=== PATIENT | female | born 1985 | race Hispanic/Latino ===

== ENCOUNTER 2018-04-12 21:12 | Emergency (ER) | payer SELFPAY ==
--- NOTE | 2018-04-12 21:41 | EDPHYS ---
Physician Documentation [facility] Name: Lisbet Vela Age: 32 yrs Sex: Female : 1985 Arrival Date: 04/12/2018 Time: 21:14 Bed 14 Private MD: ED Physician Fortunato Smith HPI: 04/12 21:59 This 32 yrs old Female presents to ER via Ambulatory with complaints of Eye snw Swelling. 21:59 The patient is experiencing upper eyelid edema s/p insect bite, to the right eye. snw Onset: The symptoms/episode began/occurred suddenly. Duration: the symptoms are continuous. Associated signs and symptoms: Pertinent positives: None. Patient wears soft contacts. Severity of symptoms: At their worst the symptoms were moderate. The patient has not experienced similar symptoms in the past. The patient has not recently seen a physician. bitten by mosquito today per report, took some benadryl and slept, unable to open upper eyelid when she awoke second to edema. 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 - Social history:: Smoking status: Patient/guardian denies using tobacco. - Ebola Screening: : No symptoms or risks identified at this time. ROS: 21:57 Constitutional: Negative for fever, chills, and weight loss, ENT: Negative for injury, snw pain, and discharge, Neck: Negative for injury, pain, and swelling, Cardiovascular: Negative for chest pain, palpitations, and edema, Respiratory: Negative for shortness of breath, cough, wheezing, and pleuritic chest pain, Abdomen/GI: Negative for abdominal pain, nausea, vomiting, diarrhea, and constipation, Back: Negative for injury and pain, : Negative for injury, bleeding, discharge, and swelling, MS/Extremity: Negative for injury and deformity, Skin: Negative for injury, rash, and discoloration, Neuro: Negative for headache, weakness, numbness, tingling, and seizure. 21:57 Eyes: Positive for swelling, of the right upper eyelid. Exam: 21:57 Constitutional: This is a well developed, well nourished patient who is awake, alert, snw and in no acute distress. Head/Face: Normocephalic, atraumatic. Eyes: Pupils equal round and reactive to light, extra-ocular motions intact. lashes normal. right upper eyelid with edema and faint erythema. conjunctiva and sclera are non-icteric and not injected. Cornea within normal limits. Periorbital areas with no swelling, redness, or edema. ENT: Nares patent. No nasal discharge, no septal abnormalities noted. Tympanic membranes are normal and external auditory canals are clear. Oropharynx with no redness, swelling, or masses, exudates, or evidence of obstruction, uvula midline. Mucous membranes moist. Neck: Trachea midline, no thyromegaly or masses palpated, and no cervical lymphadenopathy. Supple, full range of motion without nuchal rigidity, or vertebral point tenderness. No Meningismus. Chest/axilla: Normal chest wall appearance and motion. Nontender with no deformity. No lesions are appreciated. Cardiovascular: Regular rate and rhythm with a normal S1 and S2. No gallops, murmurs, or rubs. Normal PMI, no JVD. No pulse deficits. Respiratory: Lungs have equal breath sounds bilaterally, clear to auscultation and percussion. No rales, rhonchi or wheezes noted. No increased work of breathing, no retractions or nasal flaring. Abdomen/GI: Soft, non-tender, with normal bowel sounds. No distension or tympany. No guarding or rebound. No evidence of tenderness throughout. Back: No spinal tenderness. No costovertebral tenderness. Full range of motion. Skin: Warm, dry with normal turgor. Normal color with no rashes, no lesions, and no evidence of cellulitis. MS/ Extremity: Pulses equal, no cyanosis. Neurovascular intact. Full, normal range of motion. Neuro: Awake and alert, GCS 15, oriented to person, place, time, and situation. Cranial nerves II-XII grossly intact. Motor strength 5/5 in all extremities. Sensory grossly intact. Cerebellar exam normal. Normal gait. Vital Signs: 21:39 BP 128 / 74; Pulse 61; Resp 18; Temp 98(O); Pulse Ox 100% on R/A; Weight 108.86 kg; lp1 Height 5 ft. 2 in. (157.48 cm); Pain 6/10; 21:39 Body Mass Index 43.90 (108.86 kg, 157.48 cm) lp1 MDM: 21:36 Patient medically screened. snw 21:58 Data reviewed: vital signs, nurses notes. Data interpreted: Pulse oximetry: on room air snw is 100 %. Interpretation: normal. Counseling: I had a detailed discussion with the patient and/or guardian regarding: the historical points, exam findings, and any diagnostic results supporting the discharge/admit diagnosis, the need for outpatient follow up, to return to the emergency department if symptoms worsen or persist or if there are any questions or concerns that arise at home. Special discussion: Based on the history and exam findings, there is no indication for further emergent testing or inpatient evaluation. I discussed with the patient/guardian the need to see the primary care provider for further evaluation of the symptoms. Administered Medications: 21:58 Drug: ZyrTEC - Cetirizine 10 mg Route: PO; lp1 22:06 Follow up: Response: Medication administered at discharge. lp1 21:59 Drug: Pepcid 20 mg Route: PO; lp1 22:06 Follow up: Response: Medication administered at discharge. lp1 21:59 Drug: Bactrim (160 mg-800 mg (DS) 1 tablet Route: PO; lp1 22:06 Follow up: Response: Medication administered at discharge. lp1 Disposition: 04/12/18 21:41 Discharged to Home. Impression: Cellulitis of face, Insect bite (nonvenomous) of eyelid and periocular area. - Condition is Stable. - Discharge Instructions: Insect Bite, Cellulitis, Adult, Cryotherapy. - Prescriptions for Zyrtec 10 mg Oral Tablet - take 1 tablet by ORAL route once daily As needed; 20 tablet. Bactrim DS 800- 160 mg Oral Tablet - take 1 tablet by ORAL route every 12 hours for 10 days; 20 tablet. Pepcid 20 mg Oral Tablet - take 1 tablet by ORAL route once daily for 10 days; 10 tablet. - Work release form, Medication Reconciliation Form, Thank You Letter, Antibiotic Education, Prescription Opioid Use form. - Follow up: Private Physician; When: 2 - 3 days; Reason: Recheck today's complaints, Continuance of care, Re-evaluation by your physician. Follow up: Emergency Department; When: As needed; Reason: Worsening of condition. Signatures: Pamela Llanos, ELIANE-C LANDSCAPE TECHNICIAN-Csnw Rosalinda Dash RN RN lp1 Corrections: (The following items were deleted from the chart) 22:06 21:41 04/12/2018 21:41 Discharged to Home. Impression: Cellulitis of face; Insect bite lp1 (nonvenomous) of eyelid and periocular area. Condition is Stable. Forms are Medication Reconciliation Form, Thank You Letter, Antibiotic Education, Prescription Opioid Use. Follow up: Private Physician; When: 2 - 3 days; Reason: Recheck today's complaints, Continuance of care, Re-evaluation by your physician. Follow up: Emergency Department; When: As needed; Reason: Worsening of condition. snw
--- NOTE | 2018-04-12 21:41 | ER ---
Nurse's Notes [facility] Name: Lisbet Vela Age: 32 yrs Sex: Female : 1985 Arrival Date: 04/12/2018 Time: 21:14 Bed 14 Private MD: Diagnosis: Cellulitis of face;Insect bite (nonvenomous) of eyelid and periocular area Presentation: 04/12 21:36 Presenting complaint: Patient states: Right eye lid swelling that began this morning; lp1 States swelling has increased, last Benadryl dosage at 1100; States "I thought it was just a mosquito bite". Transition of care: patient was not received from another setting of care. Onset of symptoms was April 12, 2018. Risk Assessment: Do you want to hurt yourself or someone else? Patient reports no desire to harm self or others. Initial Sepsis Screen: Does the patient meet any 2 criteria? No. Patient's initial sepsis screen is negative. Does the patient have a suspected source of infection? No. Patient's initial sepsis screen is negative. Care prior to arrival: None. 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 - Social history:: Smoking status: Patient/guardian denies using tobacco. - Ebola Screening: : No symptoms or risks identified at this time. Screenin:04 Abuse screen: Denies threats or abuse. Denies injuries from another. Nutritional lp1 screening: No deficits noted. Tuberculosis screening: No symptoms or risk factors identified. Fall Risk None identified. Assessment: 21:40 General: Appears in no apparent distress. Behavior is calm, cooperative, appropriate lp1 for age. Pain: Complains of pain in right eye Pain currently is 6 out of 10 on a pain scale. Neuro: Level of Consciousness is awake, alert, obeys commands. Cardiovascular: Patient's skin is warm and dry. Respiratory: No deficits noted. Respiratory: No deficits noted. GI: No deficits noted. : No deficits noted. EENT: Eyes swelling noted to right upper eye lid. Derm: Skin is pink, warm \\T\\ dry. Musculoskeletal: No deficits noted. Vital Signs: 21:39 BP 128 / 74; Pulse 61; Resp 18; Temp 98(O); Pulse Ox 100% on R/A; Weight 108.86 kg; lp1 Height 5 ft. 2 in. (157.48 cm); Pain 6/10; 21:39 Body Mass Index 43.90 (108.86 kg, 157.48 cm) lp1 ED Course: 21:14 Patient arrived in ED. as 21:19 Pamela Llanos FNP-C is [facility]. snw 21:19 Fortunato Smith MD is Attending Physician. snw 21:36 Rosalinda Dash, RN is Primary Nurse. lp1 21:38 Triage completed. lp1 21:39 Arm band placed on left wrist. lp1 22:04 Patient has correct armband on for positive identification. lp1 22:04 No provider procedures requiring assistance completed. Patient did not have IV access lp1 during this emergency room visit. Administered Medications: 21:58 Drug: ZyrTEC - Cetirizine 10 mg Route: PO; lp1 22:06 Follow up: Response: Medication administered at discharge. lp1 21:59 Drug: Pepcid 20 mg Route: PO; lp1 22:06 Follow up: Response: Medication administered at discharge. lp1 21:59 Drug: Bactrim (160 mg-800 mg (DS) 1 tablet Route: PO; lp1 22:06 Follow up: Response: Medication administered at discharge. lp1 Outcome: 21:41 Discharge ordered by . snw 22:05 Discharged to home ambulatory. lp1 22:05 Condition: stable 22:05 Discharge instructions given to patient, Instructed on discharge instructions, follow up and referral plans. medication usage, Demonstrated understanding of instructions, follow-up care, medications, Prescriptions given X 3. 22:06 Patient left the ED. lp1 Signatures: Pamela Llanos FNP-C RUG INSPECTOR HELPER-Csnw Sara Dwyer as Rosalinda Dash, RN RN lp1
[2018-04-12] MEDS ORDERED: CETIRIZINE HCL 5 MG TABLET ONE ×2 (21:56→22:03)
[2018-04-12] MEDS ORDERED: SMZ./TMP. 800/160 MG TABLET ONE ×2 (21:56→22:03)
[2018-04-12] MEDS ORDERED: FAMOTIDINE 20 MG TAB ONE ×2 (21:57→22:03)
[2018-04-13 15:02] VITALS: BP 128/74; TEMP 98; O2SAT 100
== END 2018-04-12 22:06 | disposition home or self-care (01) ==
LOC: ER 21:12
DX: H00.031 Abscess of right upper eyelid (principal); Z88.3 Allergy status to other anti-infective agents; Z88.5 Allergy status to narcotic agent
CPT/HCPCS: 99283

== ENCOUNTER 2018-05-04 08:11 | Emergency (ER) | payer SELFPAY ==
[2018-05-04 09:01] LABS: Absolute Monocytes 0.5 K/uL (0.1-1.3); Absolute Neutrophil 4.8 K/uL (1.8-8.0); Basophils % 0.6 % (0-1.3); Eosinophils % 4.1 % (0-4.4); Lymphocytes % 25.9 % (15.3-44.8); MCH 32.2 pg (27.0-35.0); MCV 92.4 fL (80-100); Monocytes % 6.1 % (3.3-12.3)
[2018-05-04 09:22] LABS: Albumin 3.1 g/dL (3.4-5.0); Bilirubin Direct 0.1 mg/dL (0-0.2); Bilirubin Total 0.3 mg/dL (0.2-1.0); Potassium 3.4 mmol/L (3.5-5.1); Protein, Total 6.7 g/dL (6.4-8.2)
[2018-05-04 09:25] LABS: Urine Bacteria <20 /HPF (<20); Urine Culture Reflex Order NOT NEEDED; Urine RBC <5 /HPF (NONE SEEN)
[2018-05-04 09:36] LABS: Urine Blood TRACE (NEG); Urine Glucose NEGATIVE (NEG); Urine Protein NEGATIVE (NEG); Urine pH 7.5 (5.0-7.0)
--- NOTE | 2018-05-04 09:52 | RAD REPORT ---
EXAM DESCRIPTION: CT - Abdomen Pelvis W Contrast - 05/04/2018 9:44 am CLINICAL HISTORY: Abdominal pain, left upper quadrant pain and tenderness, prior cholecystectomy COMPARISON: CT imaging November 2016 TECHNIQUE: Biphasic, helical CT imaging of the abdomen and pelvis was performed following 100 ml non -ionic IV contrast. Oral contrast was given. All CT scans are performed using dose optimization technique as appropriate and may include automated exposure control or mA/KV adjustment according to patient size. FINDINGS: No suspicious findings in the lung bases. The liver, spleen, and pancreas show no suspicious findings. Gallbladder is absent. No biliary tree d ilatation. Symmetric renal function is seen with no hydronephrosis or suspicious renal mass. No pyelonephritis o r acute renal parenchymal process. No dilated bowel loops or bowel wall thickening. No appendicitis. No free air, free fluid or pneumato sis. No focal inflammatory stranding. Few very small mesenteric lymph nodes are present. No hernia, mass or bulky lymphadenopathy. The urinary bladder is without significant finding. No adrenal abnorma lity. Uterus and ovaries show no suspicious findings. No suspicious bony findings. IMPRESSION: Contrast enhanced CT abdomen and pelvis showing no significant or suspicious finding. Patient has a few sub centimeter mesenteric lymph nodes present. These are nonspecific. A mild enteri tis is possible.
--- NOTE | 2018-05-04 10:01 | EDPHYS ---
Physician Documentation [facility] Name: Lisbet Vela Age: 32 yrs Sex: Female : 1985 Arrival Date: 05/04/2018 Time: 08:15 Bed 6 Private MD: None, None ED Physician Shayne Pereyra HPI: 05/04 09:03 This 32 yrs old Female presents to ER via Ambulatory with complaints of rn Abdominal Swelling. 09:03 The patient presents with abdominal pain. Onset: The symptoms/episode began/occurred 3 rn day(s) ago. The symptoms do not radiate. Associated signs and symptoms: Pertinent negatives: anorexia, blood in stools, chest pain, constipation, diarrhea, dysuria, fever, hematuria, vaginal discharge. The symptoms are described as crampy. Modifying factors: The symptoms are alleviated by nothing, the symptoms are aggravated by touching the area. Severity of pain: At its worst the pain was mild in the emergency department the pain is unchanged. The patient has not experienced similar symptoms in the past. Reports LUQ swelling, feels like it is distended, no trauma, no fever/vomiting/diarrhea. Has had gallbladder removed. Intermittent dull/crampy pain. . 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 - Social history:: Smoking status: Patient/guardian denies using tobacco, Patient uses alcohol, occasionally. - Ebola Screening: : Patient negative for fever greater than or equal to 101.5 degrees Fahrenheit, and additional compatible Ebola Virus Disease symptoms Patient denies exposure to infectious person Patient denies travel to an Ebola-affected area in the 21 days before illness onset. - Family history:: not pertinent. - Hospitalizations: : No recent hospitalization is reported. ROS: 09:03 Constitutional: Negative for fever, chills, and weight loss, Eyes: Negative for injury, rn pain, redness, and discharge, Cardiovascular: Negative for chest pain, palpitations, and edema, Respiratory: Negative for cough, wheezing, and pleuritic chest pain, Abdomen/GI: Negative for nausea, vomiting, diarrhea, and constipation, MS/Extremity: Negative for injury and deformity, Skin: Negative for injury, rash, and discoloration, Neuro: Negative for headache, weakness, numbness, tingling, and seizure. Exam: 09:03 Constitutional: This is a well developed, well nourished patient who is awake, alert, rn and in no acute distress. Head/Face: Normocephalic, atraumatic. Eyes: Pupils equal round and reactive to light, extra-ocular motions intact. Periorbital areas with no swelling, redness, or edema. ENT: MMM Abdomen/GI: soft, mild periumbilical and LUQ tenderness without palpable mass. Skin: Warm, dry, no evidence of cellulitis. MS/ Extremity: Pulses equal, no cyanosis. Neurovascular intact. Full, normal range of motion. Equal circumference. Neuro: Awake and alert, GCS 15, oriented to person, place, time, and situation. Cranial nerves II-XII grossly intact. Motor strength 5/5 in all extremities. Sensory grossly intact. Cerebellar exam normal. Normal gait. Vital Signs: 08:24 BP 108 / 72; Pulse 73; Resp 18; Temp 97.3(TE); Pulse Ox 99% on R/A; Weight 111.13 kg; hj Height 5 ft. 2 in. (157.48 cm); Pain 5/10; 08:44 BP 113 / 62; Pulse 68; Resp 14; Temp 98.2; Pulse Ox 99% on R/A; Pain 7/10; ch 09:35 BP 120 / 74; Pulse 75; Resp 14; Pulse Ox 100% on R/A; ch 10:00 BP 103 / 55; Pulse 61; Resp 14; Temp 98.8; Pulse Ox 99% on R/A; Pain 6/10; ch 08:24 Body Mass Index 44.81 (111.13 kg, 157.48 cm) hj MDM: 08:29 Patient medically screened. rn 09:59 Differential diagnosis: appendicitis, gastritis, gastroesophageal reflux disease, rn non-specific abd pain, pancreatitis, Ureterolithiasis, urinary tract infection. Data reviewed: vital signs, nurses notes, lab test result(s), radiologic studies, CT scan, and as a result, I will discharge patient. Counseling: I had a detailed discussion with the patient and/or guardian regarding: the historical points, exam findings, and any diagnostic results supporting the discharge/admit diagnosis, lab results, radiology results, the need for outpatient follow up, to return to the emergency department if symptoms worsen or persist or if there are any questions or concerns that arise at home. Response to treatment: the patient's symptoms have mildly improved after treatment, and as a result, I will discharge patient. Special discussion: I discussed with the patient/guardian in detail that at this point there is no indication for admission to the hospital. It is understood, however, that if the symptoms persist or worsen the patient needs to return immediately for re-evaluation. 05/04 08:37 Order name: Basic Metabolic Panel; Complete Time: 09: rn 05/04 08:37 Order name: CBC with Diff; Complete Time: : rn 05/04 08:37 Order name: Hepatic Function; Complete Time: 09:26 rn 05/04 08:37 Order name: Lipase; Complete Time: 09: rn 05/04 08:37 Order name: Urine Microscopic Only; Complete Time: 09:59 rn 05/04 08:40 Order name: Urine Dipstick--Ancillary (enter results); Complete Time: 09:59 bd 05/04 08:37 Order name: IV Saline Lock; Complete Time: 08:57 rn 05/04 08:37 Order name: Labs collected and sent; Complete Time: 08:57 rn 05/04 08:37 Order name: Urine Dipstick-Ancillary (obtain specimen); Complete Time: 08:54 rn 05/04 08:37 Order name: CT Abd/Pelvis - W/Contrast; Complete Time: 09:59 rn 05/04 08:40 Order name: Urine --Ancillary (enter results); Complete Time: 09:59 bd Administered Medications: No medications were administered Disposition: 05/04/18 10:00 Discharged to Home. Impression: Nonspecific mesenteric lymphadenitis, Unspecified abdominal pain. - Condition is Stable. - Discharge Instructions: Abdominal Pain, Adult, Mesenteric Adenitis, Pediatric. - Work release form, Medication Reconciliation Form, Thank You Letter, Antibiotic Education, Prescription Opioid Use form. - Follow up: Private Physician; When: As needed; Reason: Recheck today's complaints, Re-evaluation by your physician. - Problem is new. - Symptoms have improved. Signatures: Dispatcher [employer] EDCeleste Sharma RN RN ch Nieto, Roman, MD MD rn Joaquin, Henry, RN RN Corrections: (The following items were deleted from the chart) 10:14 10:00 05/04/2018 10:00 Discharged to Home. Impression: Nonspecific mesenteric ch lymphadenitis; Unspecified abdominal pain. Condition is Stable. Forms are Medication Reconciliation Form, Thank You Letter, Antibiotic Education, Prescription Opioid Use. Follow up: Private Physician; When: As needed; Reason: Recheck today's complaints, Re-evaluation by your physician. Problem is new. Symptoms have improved. rn
--- NOTE | 2018-05-04 10:01 | ER ---
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 Transition of care: patient was not received from another setting of care. Onset of symptoms was May 04, 2018. Risk Assessment: Do you want to hurt yourself or someone else? Patient reports no desire to harm self or others. Initial Sepsis Screen: Does the patient meet any 2 criteria? No. Patient's initial sepsis screen is negative. Does the patient have a suspected source of infection? No. Patient's initial sepsis screen is negative. Care prior to arrival: None. 08:20 Method Of Arrival: Ambulatory 08:20 Acuity: ARGENIS 3 hj Triage Assessment: 08:22 General: Appears in no apparent distress. uncomfortable, Behavior is calm, cooperative, hj appropriate for age. Pain: Complains of pain in abdomen Pain does not radiate. Pain currently is 5 out of 10 on a pain scale. Quality of pain is described as stabbing. GI: Reports upper abdominal pain. RAVELER: 08:24 LMP 04/22/2018 Historical: - Allergies: 08:22 Erythromycin; hj 08:22 Vicodin; hj - Home Meds: 08:22 None [Active]; hj - PMHx: 08:22 Asthma; Bipolar disorder; hj - PSHx: 08:22 Cholecystectomy; hj - Immunization history:: Adult Immunizations up to date. - Social history:: Smoking status: Patient/guardian denies using tobacco, Patient uses alcohol, occasionally. - Ebola Screening: : Patient negative for fever greater than or equal to 101.5 degrees Fahrenheit, and additional compatible Ebola Virus Disease symptoms Patient denies exposure to infectious person Patient denies travel to an Ebola-affected area in the 21 days before illness onset. - Family history:: not pertinent. - Hospitalizations: : No recent hospitalization is reported. Screenin:23 Abuse screen: Denies threats or abuse. Denies injuries from another. Nutritional hj screening: No deficits noted. Tuberculosis screening: No symptoms or risk factors identified. Fall Risk None identified. Assessment: 08:23 GI: Bowel sounds present X 4 quads. Abd is soft Abdomen is tender to palpation. hj 08:43 Reassessment: Patient appears in no apparent distress at this time. Patient and/or ch family updated on plan of care and expected duration. Pain level reassessed. Patient is alert, oriented x 3, equal unlabored respirations, skin warm/dry/pink. 08:44 Reassessment: Patient appears in no apparent distress at this time. Patient and/or ch family updated on plan of care and expected duration. Pain level reassessed. Patient is alert, oriented x 3, equal unlabored respirations, skin warm/dry/pink. General: Appears in no apparent distress. uncomfortable. Neuro: No deficits noted. Cardiovascular: No deficits noted. Respiratory: Airway is patent Respiratory effort is even, unlabored, Breath sounds are clear bilaterally. GI: Abdomen is obese, Bowel sounds present X 4 quads. Abd is soft X 4 quads Abdomen is tender to palpation in right upper quadrant and right lower quadrant Patient currently denies diarrhea, nausea, vomiting. : No signs and/or symptoms were reported regarding the genitourinary system. Derm: Skin is pink, warm \T\ dry. 08:58 Reassessment: Patient appears in no apparent distress at this time. pt declines pain medications at this time, states she does not like them. 09:35 Reassessment: Patient appears in no apparent distress at this time. pt transported to ct. 10:00 Reassessment: Patient appears in no apparent distress at this time. Patient and/or ch family updated on plan of care and expected duration. Pain level reassessed. Patient is alert, oriented x 3, equal unlabored respirations, skin warm/dry/pink. pt back in room, give more warm blankets. pt still states it hurts when she breathes. lung sounds cta. no s/s of distress. pt declines pain medications. 10:06 Reassessment: Patient appears in no apparent distress at this time. pt verb ch understanding if discharge instructions and follow up care. Vital Signs: 08:24 BP 108 / 72; Pulse 73; Resp 18; Temp 97.3(TE); Pulse Ox 99% on R/A; Weight 111.13 kg; hj Height 5 ft. 2 in. (157.48 cm); Pain 5/10; 08:44 BP 113 / 62; Pulse 68; Resp 14; Temp 98.2; Pulse Ox 99% on R/A; Pain 7/10; ch 09:35 BP 120 / 74; Pulse 75; Resp 14; Pulse Ox 100% on R/A; ch 10:00 BP 103 / 55; Pulse 61; Resp 14; Temp 98.8; Pulse Ox 99% on R/A; Pain 6/10; ch 08:24 Body Mass Index 44.81 (111.13 kg, 157.48 cm) hj ED Course: 08:15 Patient arrived in ED. mr 08:16 None, None is Private Physician. mr 08:21 Triage completed. hj 08:23 Arm band placed on left wrist. hj 08:25 Patient has correct armband on for positive identification. Placed in gown. Bed in low hj position. Call light in reach. Side rails up X 1. 08:29 Osorio River, RN is Primary Nurse. bp 08:29 Shayne Pereyra MD is Attending Physician. rn 08:36 Urine collected: clean catch specimen, cloudy, mami colored. jb1 08:53 Missed attempt(s): 22 gauge in right antecubital area. jb1 08:57 Primary Nurse role handed off by Osorio River, GONZALES ch 08:57 Celeste Daniel, GONZALES is Primary Nurse. ch 08:58 No apparent distress. Resting quietly. ch 08:58 Pulse ox on. NIBP on. Warm blanket given. ch 08:58 Inserted saline lock: 20 gauge in left forearm, using aseptic technique. Blood ch collected. 09:10 Radiology exam delayed due to lab results not completed at this time. (BUN/Creatinine). vr 09:44 CT Abd/Pelvis - W/Contrast In Process Unspecified. EDMS 10:13 No provider procedures requiring assistance completed. IV discontinued, intact, ch bleeding controlled, No redness/swelling at site. Pressure dressing applied. Administered Medications: No medications were administered Outcome: 10:00 Discharge ordered by . rn 10:13 Discharged to home ambulatory. 10:13 Condition: improved 10:13 Discharge instructions given to patient, Instructed on discharge instructions, follow up and referral plans. medication usage, ibuprofen Demonstrated understanding of instructions, follow-up care, medications. 10:14 Patient left the ED. Signatures: Dispatcher [employer] EDMS Ricardo Montalvo jb1 Celeste Daniel RN RN JacobsonHermila whitmore mr Shayne Pereyra MD MD rn Davis, Victoria vr Joaquin, Henry, RN RN hj Peltier, Brian, RN RN bp Corrections: (The following items were deleted from the chart) 08:25 08:24 Pulse 80bpm; Resp 18bpm; Pulse Ox 99% RA; Temp 97.3F Temporal; 111.13 kg; Height hj 5 ft. 2 in.; BMI: 44.8; Pain 5/10; hj 08:26 08:24 Pulse 73bpm; Resp 18bpm; Pulse Ox 99% RA; Temp 97.3F Temporal; 111.13 kg; Height hj 5 ft. 2 in.; BMI: 44.8; Pain 5/10; hj 08:31 08:20 Presenting complaint: Patient states: i felt my abdomen is swollen on my L upper hj part for 3-4 days ago, i feel like i fall asleep and when i wake up, i feel like gasping for air; reports sweats and chills; denies diarrhea, denies nausea and vomiting; denies taking meds MANAGER OF MAINTENANCE: hj
[2018-05-04 10:21] VITALS: BP 103/55; TEMP 98.8; O2SAT 99
== END 2018-05-04 10:14 | disposition home or self-care (01) ==
LOC: ER 08:11
DX: I88.0 Nonspecific mesenteric lymphadenitis (principal); Z88.3 Allergy status to other anti-infective agents; Z88.5 Allergy status to narcotic agent
CPT/HCPCS: 36415; 74177; 80048; 80076; 81003; 81015; 81025; 83690; 85025; 99284; Q9967

== ENCOUNTER 2018-08-17 03:27 | Emergency (ER) | payer SELFPAY ==
[2018-08-17] MEDS ORDERED: MORPHINE 2 MG/ML SYR ONE (03:50)
[2018-08-17 04:20] LABS: Absolute Lymphocytes (CBC) 2.5 K/uL (0.7-4.9); Absolute Monocytes 0.5 K/uL (0.1-1.3); Absolute Neutrophil 9.9 K/uL (1.8-8.0); Basophils % 0.2 % (0-1.3); Eosinophils % 0.6 % (0-4.4); Hematocrit 33.2 % (36.0-45.0); Lymphocytes % 19.3 % (15.3-44.8); MPV 7.2 fL (7.6-11.3); Monocytes % 4.2 % (3.3-12.3); RBC Red Blood Cell Count 3.57 M/uL (3.86-4.86)
[2018-08-17 04:33] LABS: Urine Blood 2+ (NEG); Urine Glucose NEGATIVE (NEG); Urine Protein 2+ (NEG); Urine Specific Gravity 1.015 (1.005-1.030); Urine pH 7.5 (5.0-7.0)
[2018-08-17 04:39] LABS: Potassium 2.8 mmol/L (3.5-5.1)
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
[2018-08-17 07:24] VITALS: O2SAT 100
[2018-08-17 07:26] VITALS: TEMP 97.5
[2018-08-17 07:27] VITALS: BP 108/68
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
== END 2018-08-17 07:16 | disposition short-term general hospital (02) ==
LOC: ER 03:27
DX: S32.472A Displaced fracture of medial wall of left acetabulum, initial encounter for closed fracture (principal); S33.2XXA Dislocation of sacroiliac and sacrococcygeal joint, initial encounter; S36.115A Moderate laceration of liver, initial encounter; V49.40XA Driver injured in collision with unspecified motor vehicles in traffic accident, initial encounter; Z88.3 Allergy status to other anti-infective agents; Z88.5 Allergy status to narcotic agent
CPT/HCPCS: 36415; 51702; 70450; 71260; 72125; 74177; 80048; 81003; 81025; 85025; 86850; 86900; 86901; 96374; 99285; J2270; Q9967

== ENCOUNTER 2019-05-10 06:13 | Emergency (ER) | payer SELFPAY ==
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
[2019-05-10 06:43] LABS: Protime INR 0.85
[2019-05-10 07:15] LABS: Absolute Lymphocytes (CBC) 2.3 K/uL (0.7-4.9); Basophils % 0.5 % (0-1.3); Hematocrit 34.3 % (36.0-45.0); Lymphocytes % 37.5 % (15.3-44.8); MPV 7.4 fL (7.6-11.3); RBC Red Blood Cell Count 3.72 M/uL (3.86-4.86)
[2019-05-10 07:52] LABS: ALT/SGPT 57 U/L (12-78); AST/SGOT 33 U/L (15-37); Albumin 3.3 g/dL (3.4-5.0); Alkaline Phosphatase 172 U/L (45-117); BUN Blood Urea Nitrogen 13 mg/dL (7-18); Bicarbonate 25 mmol/L (21-32); Bilirubin Direct < 0.1 mg/dL (0-0.2); Bilirubin Total 0.2 mg/dL (0.2-1.0); Glucose Level 89 mg/dL (74-106); NT PRO-BNP 52 pg/mL (<125); Potassium 3.7 mmol/L (3.5-5.1); Protein, Total 6.8 g/dL (6.4-8.2); Sodium Level 141 mmol/L (136-145); Troponin (Emerg Dept Use Only) < 0.02 ng/mL (0.0-0.045)
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
--- NOTE | 2019-05-10 08:01 | ER ---
Nurse's Notes [facility] Name: Lisbet Vela Age: 33 yrs Sex: Female : 1985 Arrival Date: 05/10/2019 Time: 06:18 Bed 17 Private MD: Diagnosis: Chest pain, unspecified Presentation: 05/10 06:22 Presenting complaint: EMS states: Pt C/O chest pain radiating to left shoulder, states wh it is a sharp pain 7/10 on a pain scale. Pt states chest pain started a month ago but hasn't seen PCP yet. Transition of care: patient was not received from another setting of care. Onset of symptoms was May 10, 2019. Risk Assessment: Do you want to hurt yourself or someone else? Patient reports no desire to harm self or others. Initial Sepsis Screen: Does the patient meet any 2 criteria? No. Patient's initial sepsis screen is negative. Does the patient have a suspected source of infection? No. Patient's initial sepsis screen is negative. Care prior to arrival: None. 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 - Social history:: Smoking status: Patient/guardian denies using tobacco. - Ebola Screening: : Patient negative for fever greater than or equal to 101.5 degrees Fahrenheit, and additional compatible Ebola Virus Disease symptoms Patient denies exposure to infectious person. Screenin:25 Abuse screen: Denies threats or abuse. Denies injuries from another. Nutritional screening: No deficits noted. Tuberculosis screening: No symptoms or risk factors identified. Fall Risk None identified. Assessment: 06:30 General: Appears in no apparent distress. Behavior is calm, cooperative, appropriate for age. Pain: Complains of pain in chest Pain radiates to Left Shoulder Pain currently is 7 out of 10 on a pain scale. Quality of pain is described as sharp, Pain began suddenly. Neuro: Level of Consciousness is awake, alert, obeys commands, Oriented to person, place, time, situation, Appropriate for age. Cardiovascular: Reports chest pain, Heart tones S1 S2 Rhythm is regular. Respiratory: Airway is patent Respiratory effort is even, unlabored, Respiratory pattern is regular, symmetrical, Breath sounds are clear bilaterally. GI: Abdomen is flat, non-distended. : No signs and/or symptoms were reported regarding the genitourinary system. EENT: No signs and/or symptoms were reported regarding the EENT system. Derm: Skin is intact, is healthy with good turgor, Skin is pink, warm \T\ dry. normal. Musculoskeletal: Circulation, motion, and sensation intact. 07:15 Reassessment: Patient appears in no apparent distress at this time. No changes from jl7 previously documented assessment. Patient and/or family updated on plan of care and expected duration. Pain level reassessed. Patient is alert, oriented x 3, equal unlabored respirations, skin warm/dry/pink. Vital Signs: 06:30 BP 114 / 64; Pulse 66; Resp 18; Temp 98.3; Pulse Ox 100% ; Weight 106.59 kg; Height 5 wh ft. 2 in. (157.48 cm); 07:30 BP 101 / 69; Pulse 78; Resp 19; Pulse Ox 100% on R/A; Pain 6/10; rb1 06:30 Body Mass Index 42.98 (106.59 kg, 157.48 cm) ED Course: 06:18 Patient arrived in ED. tl1 06:21 Tah[facility] Crockett [facility]-C [facility]. kb 06:21 Walter Clark MD is Attending Physician. kb 06:21 Kayla Russ is Primary Nurse. wh 06:25 Patient has correct armband on for positive identification. Placed in gown. Bed in low wh position. Call light in reach. Side rails up X 1. laboratory monitor on. Pulse ox on. NIBP on. 06:25 Arm band placed on. wh 06:35 Inserted saline lock: 20 gauge in right antecubital area, using aseptic technique. wh Blood collected. Patient maintains SpO2 saturation greater than 95% on room air. 06:52 Triage completed. wh 07:05 XRAY Chest (1 view) In Process Unspecified. EDMS 08:14 No provider procedures requiring assistance completed. IV discontinued. jl7 Administered Medications: No medications were administered Outcome: 08:00 Discharge ordered by . aston 08:14 Discharged to home ambulatory. jl7 08:14 Condition: stable 08:14 Discharge instructions given to patient, Instructed on discharge instructions, follow up and referral plans. Demonstrated understanding of instructions, follow-up care. 08:14 Patient left the ED. jl7 Signatures: Dispatcher [employer] EDND Tahira Crockett, PROMOTION SPECIALIST-C PROMOTION SPECIALIST-CkRina Navarro, RN RN tl1 Margarita Watkins, RN RN rb1 Kelly Esparza RN RN jl7 Kayla Russ Corrections: (The following items were deleted from the chart) 07:35 07:30 BP 101 / 69; Pulse 78bpm; Resp 19bpm; Pulse Ox 100% RA; Pain 7/10; rb1 rb1 08:14 07:15 Discharged to home ambulatory, jl jl7 08:14 07:15 Condition: stable jl jl 08:14 07:15 Discharge instructions given to patient, Instructed on discharge instructions, jl7 follow up and referral plans. Demonstrated understanding of instructions, follow-up care, jl7
[2019-05-10 08:05] LABS: Urine Blood NEGATIVE (NEG); Urine Glucose NEGATIVE (NEG); Urine Protein NEGATIVE (NEG); Urine Specific Gravity 1.015 (1.005-1.030); Urine pH 7.5 (5.0-7.0)
[2019-05-10 08:06] LABS: Urine Specific Gravity 1.015 (1.005-1.030)
[2019-05-10 08:36] VITALS: BP 101/69; O2SAT 100
[2019-05-10 08:37] VITALS: TEMP 98.3
--- NOTE | 2019-05-10 08:45 | EKG ---
Test Date: 2019-05-10 Test Time: 06:17:17 Hvac Commercial Salesperson: YURY MEASUREMENT RESULTS: Intervals: Rate: 77 AK: 130 QRSD: 92 QT: 388 QTc: 439 [place]: P: 79 AK: 130 QRS: 78 T: 64 INTERPRETIVE STATEMENTS: Normal sinus rhythm Normal ECG Compared to ECG 02/12/2017 19:14:00 No significant changes Electronically Signed On 05-10-19 08:45:03 SUGARCANE RESEARCH TECHNICIAN by Seb Gooden
--- NOTE | 2019-05-10 08:46 | RAD REPORT ---
EXAM DESCRIPTION: RAD - Chest Single View - 05/10/2019 7:03 am CLINICAL HISTORY: Chest pain, left shoulder and arm pain COMPARISON: November 2016 TECHNIQUE: AP portable chest image was obtained 0638 hours . FINDINGS: Lungs are clear. Heart and vasculature are normal. No measurable pleural effusion and no p neumothorax. No acute bony abnormality seen. No acute aortic findings suspected. IMPRESSION: No acute cardiopulmonary process. No suspicious interval change.
== END 2019-05-10 08:14 | disposition home or self-care (01) ==
LOC: ER 06:13
DX: R07.9 Chest pain, unspecified (principal); Z88.3 Allergy status to other anti-infective agents; Z88.5 Allergy status to narcotic agent
CPT/HCPCS: 36415; 71045; 80048; 80076; 81003; 81025; 83735; 83880; 84484; 85025; 85379; 85610; 93005; 99285

== ENCOUNTER 2019-07-24 22:26 | Emergency (ER) | payer SELFPAY ==
[2019-07-24] MEDS ORDERED: LIDOCAINE VISCOUS 2% SOLN 15 ML UDC ONE (23:12)
[2019-07-24] MEDS ORDERED: NA CHLORIDE 0.9% 1,000 ML ONE (23:12)
[2019-07-24] MEDS ORDERED: MAGNE/ALUM HYDROXD 30 ML UCUP ONE (23:12)
[2019-07-24] MEDS ORDERED: ONDANSETRON 4 MG/2 ML VIAL ONE (23:13)
[2019-07-24 23:40] LABS: Absolute Lymphocytes (CBC) 0.9 K/uL (0.7-4.9); Basophils % 0.4 % (0-1.3); Lymphocytes % 17.4 % (15.3-44.8); MPV 7.4 fL (7.6-11.3)
[2019-07-24 23:51] LABS: Albumin 3.5 g/dL (3.4-5.0); Bilirubin Direct 0.2 mg/dL (0-0.2); Bilirubin Total 0.4 mg/dL (0.2-1.0); Potassium 3.5 mmol/L (3.5-5.1); Protein, Total 7.2 g/dL (6.4-8.2)
[2019-07-25 00:10] LABS: Urine Bacteria <20 /HPF (<20); Urine Culture Reflex Order NOT NEEDED; Urine RBC <5 /HPF (NONE SEEN)
[2019-07-25 00:11] LABS: Urine Blood NEGATIVE (NEG); Urine Glucose NEGATIVE (NEG); Urine Protein 1+ (NEG); Urine Specific Gravity 1.015 (1.005-1.030); Urine pH >8.5 (5.0-7.0)
--- NOTE | 2019-07-25 03:28 | EDPHYS ---
Physician Documentation [facility] Name: Lisbet Vela Age: 33 yrs Sex: Female : 1985 Arrival Date: 07/24/2019 Time: : Bed 15 Private MD: ED Physician Shayne Pereyra HPI: 07/25 00:46 This 33 yrs old Female presents to ER via Ambulatory with complaints of abd rn pain, Chest Pain, Nausea/Vomiting. 00:46 The patient presents with abdominal pain in the epigastric area. Onset: The rn symptoms/episode began/occurred today. The symptoms radiate to chest. Associated signs and symptoms: Pertinent positives: nausea and vomiting, chest pain, Pertinent negatives: blood in stools. The symptoms are described as crampy, intermittent. Modifying factors: The symptoms are alleviated by nothing, the symptoms are aggravated by nothing. Severity of pain: At its worst the pain was moderate in the emergency department the pain has improved. The patient has not experienced similar symptoms in the past. reports drinking heavily last night until this morning, now having epigastric pain assoc with nausea/vomiting, radiates to chest. . 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 - Coronavirus screen:: The patient has NOT traveled to [place], [place], or [place] in the past 14 days. Proceed with normal triage process as indicated. The patient has NOT had contact with known/suspected case of Coronavirus? Proceed with normal triage procedures. - Social history:: Smoking status: Patient denies any tobacco usage or history of. - Family history:: not pertinent. - Ebola Screening: : No symptoms or risks identified at this time. - Hospitalizations: : No recent hospitalization is reported. ROS: 07/25 00:46 Constitutional: Negative for fever, chills, and weight loss, Eyes: Negative for injury, rn pain, redness, and discharge, Neck: Negative for injury, pain, and swelling, Cardiovascular: Negative for palpitations, and edema, Respiratory: Negative for shortness of breath, cough, wheezing, and pleuritic chest pain, Abdomen/GI: + abd pain/nausea/vomiting/diarrhea MS/Extremity: Negative for injury and deformity, Skin: Negative for injury, rash, and discoloration, Neuro: Negative for headache, numbness, tingling, and seizure. Exam: 00:46 Constitutional: This is a well developed, well nourished patient who is awake, alert, rn anxious Head/Face: Normocephalic, atraumatic. Eyes: Pupils equal round and reactive to light, extra-ocular motions intact. Lids and lashes normal. Conjunctiva and sclera are non-icteric and not injected. Cornea within normal limits. Periorbital areas with no swelling, redness, or edema. Cardiovascular: Regular rate and rhythm. No pulse deficits. Respiratory: No increased work of breathing, no retractions or nasal flaring. Abdomen/GI: soft, mild epigastric tenderness, no rebound MS/ Extremity: Pulses equal, no cyanosis. Neurovascular intact. Full, normal range of motion. Equal circumference. Neuro: Awake and alert, GCS 15, oriented to person, place, time, and situation. Cranial nerves II-XII grossly intact. Motor strength 5/5 in all extremities. Sensory grossly intact. Cerebellar exam normal. Vital Signs: 07/24 22:35 BP 132 / 85; Pulse 70; Resp 18; Temp 97.2; Pulse Ox 100% ; Weight 99.79 kg; Height 5 rv ft. 2 in. (157.48 cm); Pain 10/10; 07/25 01:00 BP 119 / 71; Pulse 60; Resp 18; Pulse Ox 100% on R/A; wh 02:00 BP 114 / 63; Pulse 79; Resp 18; Pulse Ox 99% on R/A; wh 03:00 BP 127 / 76; Pulse 72; Resp 18; Pulse Ox 100% on R/A; wh 07/24 22:35 Body Mass Index 40.24 (99.79 kg, 157.48 cm) rv MDM: 07/24 22:48 Patient medically screened. rn 07/25 03:25 Differential diagnosis: gastritis, gastroesophageal reflux disease, non-specific abd rn pain, pancreatitis, Peptic Ulcer Disease, urinary tract infection, alcoholic gastritis. Data reviewed: vital signs, nurses notes, lab test result(s), radiologic studies, CT scan, and as a result, I will discharge patient. Counseling: I had a detailed discussion with the patient and/or guardian regarding: the historical points, exam findings, and any diagnostic results supporting the discharge/admit diagnosis, lab results, radiology results, the need for outpatient follow up, to return to the emergency department if symptoms worsen or persist or if there are any questions or concerns that arise at home. Response to treatment: the patient's symptoms have markedly improved after treatment, and as a result, I will discharge patient. Special discussion: Based on the patient's Hx, exam, and Dx evaluation, there is no indication for emergent surgery or inpatient Tx. It is understood by the patient/guardian that if the Sx's persist or worsen they need to return immediately for re-evaluation. I discussed with the patient/guardian in detail that at this point there is no indication for admission to the hospital. It is understood, however, that if the symptoms persist or worsen the patient needs to return immediately for re-evaluation. Based on the history and exam findings, there is no indication for further emergent testing or inpatient evaluation. I discussed with the patient/guardian the need to see the wire twisting machine operator for further evaluation of the symptoms. ED course: No acute findings in bloodwork or ct, feels better, UPT neg, will dc home with pcp and GI f/u recommendation. 07/24 21: Order name: Basic Metabolic Panel; Complete Time: 07/24 22:55 Order name: CBC with Diff; Complete Time: 07/24 22:55 Order name: Creatinine for Radiology; Complete Time: 07/24 22:55 Order name: Hepatic Function; Complete Time: 07/24 22:55 Order name: Lipase; Complete Time: 07/24 22:55 Order name: Urine Microscopic Only; Complete Time: 07/24 22:55 Order name: IV Start; Complete Time: 23:15 07/24:55 Order name: ETOH Level; Complete Time: 07/24 23:13 Order name: Urine Dipstick--Ancillary (enter results); Complete Time: 07/24 23:13 Order name: Urine --Ancillary (enter results); Complete Time: 07/25 00:28 Order name: CT Abd/Pelvis - IV Contrast Only rn 07/24 22:55 Order name: Labs collected and sent; Complete Time: 23:15 rn 07/24 22:55 Order name: Urine Test (obtain specimen); Complete Time: 23:10 rn 07/24 22:55 Order name: Urine Dipstick-Ancillary (obtain specimen); Complete Time: 23:10 rn Administered Medications: 07/24 23:14 Drug: Zofran 4 mg Route: IVP; Site: right antecubital; mg2 07/25 03:38 Follow up: Response: No adverse reaction; Nausea is decreased 07/24 23:14 Drug: GI Cocktail without - (Maalox Suspension 30 ml, Lidocaine Liquid 2 % 15 mg2 ml) Route: PO; 07/25 03:38 Follow up: Response: No adverse reaction 07/24 23:15 Drug: NS 0.9% 1000 ml Route: IV; Rate: 1000 ml; Site: right antecubital; mg2 07/25 03:39 Follow up: Response: No adverse reaction; IV Status: Completed infusion Disposition: 07/25/19 03:27 Discharged to Home. Impression: Upper abdominal pain, unspecified, Gastritis, unspecified. - Condition is Stable. - Discharge Instructions: Abdominal Pain, Adult, Gastritis, Adult. - Medication Reconciliation Form, Thank You Letter, Antibiotic Education, Prescription Opioid Use form. - Follow up: Private Physician; When: As needed; Reason: Recheck today's complaints, Re-evaluation by your physician. - Problem is new. - Symptoms have improved. Signatures: Dispatcher [employer] EDNC Shayne Pereyra MD MD rn [place], Winsy Christiano Kenny RN GONZALES mg2 Timothy Artis RN RN rv Corrections: (The following items were deleted from the chart) 03:40 03:27 07/25/2019 03:27 Discharged to Home. Impression: Upper abdominal pain, wh unspecified; Gastritis, unspecified. Condition is Stable. Forms are Medication Reconciliation Form, Thank You Letter, Antibiotic Education, Prescription Opioid Use. Follow up: Private Physician; When: As needed; Reason: Recheck today's complaints, Re-evaluation by your physician. Problem is new. Symptoms have improved. rn
--- NOTE | 2019-07-25 03:28 | ER ---
Nurse's Notes [facility] Name: Lisbet Vela Age: 33 yrs Sex: Female : 1985 Arrival Date: 07/24/2019 Time: 22: Bed 15 Private MD: Diagnosis: Upper abdominal pain, unspecified;Gastritis, unspecified Presentation: 07/24 22:33 Presenting complaint: Patient states: I DRANK TOO MUCH YESTERDAY. I CAN'T HOLD ANYTHING rv DOWN. I THINK I'M TOO DEHYDRATED. Transition of care: patient was not received from another setting of care. Onset of symptoms was July 24, 2019 at 08:00. Risk Assessment: Do you want to hurt yourself or someone else? Patient reports no desire to harm self or others. Initial Sepsis Screen: Does the patient meet any 2 criteria? No. Patient's initial sepsis screen is negative. Does the patient have a suspected source of infection? No. Patient's initial sepsis screen is negative. Care prior to arrival: None. 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 - Coronavirus screen:: The patient has NOT traveled to [place], [place], or [place] in the past 14 days. Proceed with normal triage process as indicated. The patient has NOT had contact with known/suspected case of Coronavirus? Proceed with normal triage procedures. - Social history:: Smoking status: Patient denies any tobacco usage or history of. - Family history:: not pertinent. - Ebola Screening: : No symptoms or risks identified at this time. - Hospitalizations: : No recent hospitalization is reported. Screenin:24 Abuse screen: Denies threats or abuse. Denies injuries from another. Nutritional mg2 screening: No deficits noted. Tuberculosis screening: No symptoms or risk factors identified. Fall Risk IV access (20 points). Assessment: 23:23 General: Appears in no apparent distress. comfortable, Behavior is calm, cooperative. mg2 Pain: Complains of pain in chest Pain does not radiate. Pain currently is 3 out of 10 on a pain scale. Quality of pain is described as tightness Pain began gradually, Is intermittent. Neuro: Level of Consciousness is awake, alert, obeys commands, Oriented to person, place, time, situation. Cardiovascular: Capillary refill < 3 seconds Patient's skin is warm and dry. Respiratory: Airway is patent Respiratory effort is even, unlabored, Respiratory pattern is regular, symmetrical. GI: Reports nausea, vomiting. : No signs and/or symptoms were reported regarding the genitourinary system. EENT: No signs and/or symptoms were reported regarding the EENT system. Derm: Skin is intact, is healthy with good turgor, Skin is pink, warm \T\ dry. normal. Musculoskeletal: Circulation, motion, and sensation intact. Capillary refill < 3 seconds. 07/25 01:30 Reassessment: Patient appears in no apparent distress at this time. No changes from previously documented assessment. Patient and/or family updated on plan of care and expected duration. Pain level reassessed. Patient is alert, oriented x 3, equal unlabored respirations, skin warm/dry/pink. 03:15 Reassessment: Patient appears in no apparent distress at this time. No changes from previously documented assessment. Patient and/or family updated on plan of care and expected duration. Pain level reassessed. Patient is alert, oriented x 3, equal unlabored respirations, skin warm/dry/pink. Vital Signs: 07/24 22:35 BP 132 / 85; Pulse 70; Resp 18; Temp 97.2; Pulse Ox 100% ; Weight 99.79 kg; Height 5 rv ft. 2 in. (157.48 cm); Pain 10; 07/25 01:00 BP 119 / 71; Pulse 60; Resp 18; Pulse Ox 100% on R/A; wh 02:00 BP 114 / 63; Pulse 79; Resp 18; Pulse Ox 99% on R/A; wh 03:00 BP 127 / 76; Pulse 72; Resp 18; Pulse Ox 100% on R/A; wh 07/24 22:35 Body Mass Index 40.24 (99.79 kg, 157.48 cm) rv ED Course: 07/24 22:27 Patient arrived in ED. ds1 22:34 Triage completed. rv 22:43 Christiano Kenny, RN is Primary Nurse. [facility] 22:48 Shayne Pereyra MD is Attending Physician. rn 23:24 Patient has correct armband on for positive identification. 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 Pulse mg2 ox on. NIBP on. Door closed. Warm blanket given. 23:24 No provider procedures requiring assistance completed. Inserted saline lock: 20 gauge mg2 in right antecubital area, using aseptic technique. Blood collected. Patient maintains SpO2 saturation greater than 95% on room air. 23:25 Arm band placed on. [facility] 07/25 02:44 CT Abd/Pelvis - IV Contrast Only In Process Unspecified. EDMS 03:39 IV discontinued, intact, bleeding controlled, No redness/swelling at site. Administered Medications: 07/24 23:14 Drug: Zofran 4 mg Route: IVP; Site: right antecubital; [facility] 07/25 03:38 Follow up: Response: No adverse reaction; Nausea is decreased 07/24 23:14 Drug: GI Cocktail without - (Maalox Suspension 30 ml, Lidocaine Liquid 2 % 15 mg2 ml) Route: PO; 07/25 03:38 Follow up: Response: No adverse reaction 07/24 23:15 Drug: NS 0.9% 1000 ml Route: IV; Rate: 1000 ml; Site: right antecubital; [facility] 07/25 03:39 Follow up: Response: No adverse reaction; IV Status: Completed infusion Outcome: 03:27 Discharge ordered by . rn 03:39 Discharged to home ambulatory, with family. 03:39 Condition: stable 03:39 Discharge instructions given to patient, Instructed on discharge instructions, follow up and referral plans. POC Demonstrated understanding of instructions, follow-up care, POC 03:40 Patient left the ED. Signatures: Dispatcher [employer] [facility] Nita Braun ds1 Shayne Pereyra MD MD rn [place], Winsy Christiano Kenny RN RN mg2 Timothy Artis RN RN rv Corrections: (The following items were deleted from the chart) 07/24 22:37 22:35 BP 132 / 85; Pulse 70bpm; Resp 18bpm; Pulse Ox 100%; Temp 97.2F; 99.79 kg; Pain rv 10/10; rv
[2019-07-25 03:47] VITALS: TEMP 97.2
[2019-07-25 03:52] VITALS: BP 127/76; O2SAT 100
--- NOTE | 2019-07-25 08:04 | EKG ---
Test Date: 2019-07-24 Test Time: 22:45:49 [place] Operator: ERNIE MEASUREMENT RESULTS: Intervals: Rate: 76 RI: 128 QRSD: 100 QT: 380 QTc: 427 [place]: P: 57 RI: 128 QRS: 60 T: 42 INTERPRETIVE STATEMENTS: Normal sinus rhythm Normal ECG Compared to ECG 05/10/2019 06:17:17 No significant changes Electronically Signed On 07-25-19 08:04:03 PARTS COUNTER REPRESENTATIVE by Sung Zaidi
--- NOTE | 2019-07-25 10:15 | RAD REPORT ---
EXAM DESCRIPTION: CT - Abdomen Pelvis W Contrast - 07/25/2019 5:17 am CLINICAL HISTORY: ABD PAIN COMPARISON: 08/17/2018 TECHNIQUE: CT of the abdomen and pelvis performed following IV administration of iodinated contrast. FINDINGS: Lung Bases: The visualized lung bases are clear. Bones: Postoperative change of the left acetabulum. Abdomen: Liver: The liver has normal size and density. Tiny hypodensity in the right hepatic lobe may represen t cysts.. Gallbladder: Prior cholecystectomy. Spleen, Pancreas, and Adrenal Glands: The spleen, pancreas, and adrenal glands are unremarkable. Kidneys: The kidneys have normal size without evidence of solid mass or hydronephrosis. Vasculature: The aorta and IVC have normal caliber and position. The portal vein is patent. The pro ximal visceral and renal arteries are patent. Stomach: The stomach and duodenum have normal course. Other: No free intraperitoneal air. No free fluid or lymphadenopathy. Pelvis: Bladder: Urinary bladder is unremarkable. Bowel: No dilated loops of large or small bowel. Appendix: Normal appendix. Pelvis: Uterus is not enlarged. IMPRESSION: 1. No acute inflammatory or obstructive process identified. This exam was performed according to our departmental dose-optimization program, which includes autom ated exposure control, adjustment of the mA and/or kV according to patient size and/or use of iterati ve reconstruction technique. Electronically signed by: New Pritchett 07/25/2019 3:01 AM BASKET OPERATOR Due to temporary technical issues with the PACS/Fluency reporting system, reports are being signed by the in house radiologist as a courtesy to ensure prompt reporting. The interpreting radiologist is f ully responsible for the content of the report.
== END 2019-07-25 03:40 | disposition home or self-care (01) ==
LOC: ER 22:26
DX: K29.70 Gastritis, unspecified, without bleeding (principal); Z88.3 Allergy status to other anti-infective agents; Z88.5 Allergy status to narcotic agent
CPT/HCPCS: 36415; 74177; 80048; 80076; 80320; 81003; 81015; 81025; 83690; 85025; 93005; 96361; 96374; 99285; J2405; J7030; Q9967

== ENCOUNTER 2019-08-07 19:29 | Emergency (ER) | payer SELFPAY ==
[2019-08-07] MEDS ORDERED: ONDANSETRON 4 MG/2 ML VIAL ONE (20:05)
[2019-08-07] MEDS ORDERED: FAMOTIDINE 20 MG/2 ML VIAL IV ONE (20:06)
[2019-08-07] MEDS ORDERED: NA CHLORIDE 0.9% 1,000 ML ONE (20:06)
[2019-08-07 20:12] LABS: Absolute Lymphocytes (CBC) 0.9 K/uL (0.7-4.9); Basophils % 0.4 % (0-1.3); Hematocrit 41.1 % (36.0-45.0); Lymphocytes % 13.6 % (15.3-44.8); MPV 7.1 fL (7.6-11.3); RBC Red Blood Cell Count 4.43 M/uL (3.86-4.86)
[2019-08-07 20:13] LABS: Protime INR 1.08
[2019-08-07 20:32] LABS: ALT/SGPT 42 U/L (12-78); AST/SGOT 32 U/L (15-37); Albumin 3.9 g/dL (3.4-5.0); Alkaline Phosphatase 158 U/L (45-117); BUN Blood Urea Nitrogen 6 mg/dL (7-18); Bicarbonate 25 mmol/L (21-32); Bilirubin Direct 0.1 mg/dL (0-0.2); Bilirubin Total 0.4 mg/dL (0.2-1.0); Glucose Level 93 mg/dL (74-106); Lipase 115 U/L (73-393); Magnesium 1.9 mg/dL (1.8-2.4); NT PRO-BNP 33 pg/mL (<125); Potassium 3.8 mmol/L (3.5-5.1); Protein, Total 8.1 g/dL (6.4-8.2); Sodium Level 138 mmol/L (136-145); Troponin (Emerg Dept Use Only) < 0.02 ng/mL (0.0-0.045)
--- NOTE | 2019-08-07 20:34 | RAD REPORT ---
EXAM DESCRIPTION: RAD - Chest Single View - 08/07/2019 8:12 pm CLINICAL HISTORY: CHEST PAIN Chest pain. COMPARISON: <Comparisons> FINDINGS: Portable technique limits examination quality. The lungs are grossly clear. The heart is normal in size. No displaced fractures. IMPRESSION: No acute intrathoracic process suspected.
[2019-08-07 21:53] LABS: Urine Blood NEGATIVE (NEG); Urine Glucose NEGATIVE (NEG); Urine Protein NEGATIVE (NEG); Urine Specific Gravity 1.015 (1.005-1.030); Urine pH 7.5 (5.0-7.0)
--- NOTE | 2019-08-07 23:12 | ER ---
Nurse's Notes [facility] Name: Lisbet Vela Age: 33 yrs Sex: Female : 1985 Arrival Date: 08/07/2019 Time: 19:30 Bed 20 Private MD: Diagnosis: Other chest pain;Nausea and vomiting;Diarrhea, unspecified Presentation: 08/07 19:42 Presenting complaint: EMS states: Reports pt was complaining of chest pain that started ea last night vomiting and diarrhea. 12 lead read Normal sinus. Transition of care: patient was not received from another setting of care. Onset of symptoms was August 07, 2019. Risk Assessment: Do you want to hurt yourself or someone else? Patient reports no desire to harm self or others. Initial Sepsis Screen: Does the patient meet any 2 criteria? No. Patient's initial sepsis screen is negative. Does the patient have a suspected source of infection? No. Patient's initial sepsis screen is negative. Care prior to arrival: None. 19:42 Method Of Arrival: EMS: [facility] ea 19:42 Acuity: ARGENIS 3 ea Triage Assessment: 19:58 General: Appears uncomfortable, Behavior is appropriate for age. Pain: Complains of ea pain in epigastric area. Neuro: Level of Consciousness is awake, alert, obeys commands, Oriented to person, place, time, situation. Cardiovascular: Patient's skin is warm and dry. Derm: Skin is pink, warm \T\ dry. 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 - Coronavirus screen:: The patient has NOT traveled to [place], [place], or [place] in the past 14 days. - Social history:: Smoking status: Patient denies any tobacco usage or history of. - Ebola Screening: : No symptoms or risks identified at this time. Screenin:55 Abuse screen: Denies threats or abuse. Nutritional screening: No deficits noted. ea Tuberculosis screening: No symptoms or risk factors identified. Fall Risk None identified. Assessment: 19:59 Reassessment: see triage assessment. General: Appears uncomfortable, Behavior is ea cooperative, appropriate for age. Pain: Complains of pain in epigastric area Pain does not radiate. Pain began 1 day ago. Neuro: Level of Consciousness is awake, alert, obeys commands, Oriented to person, place, time, situation. Cardiovascular: Patient's skin is warm and dry. Respiratory: Airway is patent Respiratory effort is even, unlabored, Respiratory pattern is regular, symmetrical. Derm: Skin is pink, warm \T\ dry. 20:15 Reassessment: Patient and/or family updated on plan of care and expected duration. Pain ea level reassessed. Patient is alert, oriented x 3, equal unlabored respirations, skin warm/dry/pink. 21:15 Reassessment: Patient and/or family updated on plan of care and expected duration. Pain ea level reassessed. Patient is alert, oriented x 3, equal unlabored respirations, skin warm/dry/pink. Pt taken to CT. 21:57 Reassessment: Patient and/or family updated on plan of care and expected duration. Pain ea level reassessed. Patient is alert, oriented x 3, equal unlabored respirations, skin warm/dry/pink. returned from CT. 22:13 Reassessment: Patient and/or family updated on plan of care and expected duration. Pain ea level reassessed. Patient is alert, oriented x 3, equal unlabored respirations, skin warm/dry/pink. Awaiting on CT results. 23:45 Reassessment: Patient and/or family updated on plan of care and expected duration. Pain ea level reassessed. Patient is alert, oriented x 3, equal unlabored respirations, skin warm/dry/pink. Discharge instruction given to patient, verbalized the understanding of instruction. Pt left ED ambulatory accompanied by family. Pt tolerating well. Vital Signs: 19:42 BP 145 / 60; Pulse 57; Resp 18; Temp 97.4; Pulse Ox 100% ; Weight 102.06 kg; Height 5 ea ft. 2 in. (157.48 cm); Pain 9/10; 20:30 BP 107 / 60; Pulse 67; Resp 18; Pulse Ox 100% ; ea 21:15 BP 102 / 61; Pulse 61; Resp 18; Pulse Ox 100% ; ea 23:15 BP 114 / 68; Pulse 57; Resp 18; Temp 98; Pulse Ox 100% on R/A; ea 19:42 Body Mass Index 41.15 (102.06 kg, 157.48 cm) ea ED Course: 19:30 Patient arrived in ED. ds1 19:39 Donell Arndt PA is PHCP. cp 19:39 Walter Clark MD is Attending Physician. cp 19:42 Dariana Friend, GONZALES is Primary Nurse. ea 19:44 EKG done, by ED staff, reviewed by Walter Clark MD. em1 19:55 Triage completed. ea 19:56 Arm band placed on right wrist. Patient placed in an exam room, on a stretcher, on ea pulse oximetry. 19:57 Patient has correct armband on for positive identification. media monitor on. Pulse ea ox on. NIBP on. 19:58 Patient maintains SpO2 saturation greater than 95% on room air. ea 20:05 Initial lab(s) drawn, by me, sent to lab. Inserted saline lock: 20 gauge in right em1 forearm, using aseptic technique. Blood collected. 20:14 XRAY Chest (1 view) In Process Unspecified. EDMS 22:26 CT Abd/Pelvis - IV Contrast Only In Process Unspecified. EDMS 23:48 No provider procedures requiring assistance completed. IV discontinued, intact, ea bleeding controlled, No redness/swelling at site. Pressure dressing applied. Administered Medications: 20:17 Drug: NS 0.9% 1000 ml Route: IV; Rate: 1 bolus; Site: right antecubital; ea 20:17 Drug: Pepcid 20 mg Route: IVP; Site: right antecubital; ea 21:00 Follow up: Response: No adverse reaction ea 20:17 Drug: Zofran 4 mg Route: IVP; Site: right antecubital; ea 21:00 Follow up: Response: No adverse reaction ea Outcome: 23:11 Discharge ordered by MD. cp 23:48 Discharged to home ambulatory, with family. ea 23:48 Condition: stable 23:48 Discharge instructions given to patient, Instructed on discharge instructions, follow up and referral plans. medication usage, Demonstrated understanding of instructions, follow-up care, medications, Prescriptions given X 2. 23:49 Patient left the ED. ea Signatures: Dispatcher [employer] EDMS Nita Braun ds1 Peter Dwyer em1 Donell Arndt PA PA cp Antunez, Dariana, RN RN ea
--- NOTE | 2019-08-07 23:13 | EDPHYS ---
Physician Documentation [facility] Name: Lisbet Vela Age: 33 yrs Sex: Female : 1985 Arrival Date: 08/07/2019 Time: 19:30 Bed 20 Private MD: ED Physician Walter Clark HPI: 08/07 19:55 This 33 yrs old Female presents to ER via EMS with complaints of Chest Pain. cp 19:55 The patient or guardian reports chest pain that is located primarily in the substernal cp area, epigastric area. 19:55 The pain does not radiate. Associated signs and symptoms: Pertinent positives: cp abdominal pain, nausea, vomiting, diarrhea, Pertinent negatives: cough, lower extremity pain, lower extremity swelling, shortness of breath, syncope. 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 - Coronavirus screen:: The patient has NOT traveled to [place], [place], or [place] in the past 14 days. - Social history:: Smoking status: Patient denies any tobacco usage or history of. - Ebola Screening: : No symptoms or risks identified at this time. ROS: 20:00 Constitutional: Negative for body aches, chills, fever. cp 20:00 Eyes: Negative for injury, pain, redness, and discharge. cp 20:00 ENT: Negative for drainage from ear(s), ear pain, sore throat, difficulty swallowing, difficulty handling secretions. 20:00 Cardiovascular: Positive for chest pain. 20:00 Respiratory: Negative for cough, shortness of breath, wheezing. 20:00 Abdomen/GI: Positive for abdominal pain, nausea and vomiting, diarrhea, Negative for constipation, hematemesis, black/tarry stool, rectal bleeding. 20:00 Back: Negative for radiated pain. 20:00 : Negative for urinary symptoms. 20:00 Neuro: Negative for altered mental status, headache, weakness. 20:00 All other systems are negative. Exam: 19:45 ECG was reviewed by the Attending Physician. cp 20:05 Constitutional: The patient appears in no acute distress, alert, awake, cp non-diaphoretic, non-toxic, well developed, well nourished. 20:05 Head/Face: Normocephalic, atraumatic. cp 20:05 Eyes: Periorbital structures: appear normal, Conjunctiva: normal, no exudate, no injection, Sclera: no appreciated abnormality, Lids and lashes: appear normal, bilaterally. 20:05 ENT: External ear(s): are unremarkable, Nose: is normal, Mouth: Lips: moist, Oral mucosa: moist, Posterior pharynx: Airway: no evidence of obstruction, patent. 20:05 Chest/axilla: Inspection: normal, Palpation: crepitus, is not appreciated, tenderness, of the mid-sternal area. 20:05 Cardiovascular: Rate: bradycardic, Rhythm: regular, Edema: is not appreciated, JVD: is not appreciated. 20:05 Respiratory: the patient does not display signs of respiratory distress, Respirations: normal, no use of accessory muscles, no retractions, no splinting, no tachypnea, labored breathing, is not present, Breath sounds: are clear throughout, no decreased breath sounds, no stridor, no wheezing. 20:05 Abdomen/GI: Inspection: abdomen appears normal, Bowel sounds: active, all quadrants, Palpation: soft, in all quadrants, moderate abdominal tenderness, in the epigastric area, rebound tenderness, is not appreciated, voluntary guarding, is elicited in the epigastric area. 20:05 Back: pain, is absent, ROM is normal. 20:05 Neuro: Orientation: to person, place \T\ time. Mentation: is normal. Vital Signs: 19:42 BP 145 / 60; Pulse 57; Resp 18; Temp 97.4; Pulse Ox 100% ; Weight 102.06 kg; Height 5 ea ft. 2 in. (157.48 cm); Pain 9/10; 20:30 BP 107 / 60; Pulse 67; Resp 18; Pulse Ox 100% ; ea 21:15 BP 102 / 61; Pulse 61; Resp 18; Pulse Ox 100% ; ea 23:15 BP 114 / 68; Pulse 57; Resp 18; Temp 98; Pulse Ox 100% on R/A; ea 19:42 Body Mass Index 41.15 (102.06 kg, 157.48 cm) ea MDM: 19:47 Patient medically screened. 23:10 Data reviewed: vital signs, nurses notes, lab test result(s), EKG, radiologic studies, cp CT scan, plain films. 23:10 Test interpretation: by ED physician or midlevel provider: ECG, plain radiologic cp studies, chest xray negative for infiltrates. 08/07 19:48 Order name: Basic Metabolic Panel; Complete Time: 20:36 cp 08/07 20:37 Interpretation: Normal except: BUN 6; GFR 73; CA 9.3. cp 08/07 19:48 Order name: CBC with Diff; Complete Time: 20:36 cp 08/07 20:37 Interpretation: Normal except: WBC 6.6; MPV 7.1; MERYL% 80.2; LYM% 13.6. 08/07 19:48 Order name: LFT's; Complete Time: 20:36 08/07 20:37 Interpretation: Normal except: AST 32; ALK 158; GLOB 4.2; A/G 0.9. 08/07 19:48 Order name: Magnesium; Complete Time: 20:36 cp 08/07 19:48 Order name: NT PRO-BNP; Complete Time: 20:36 cp 08/07 19:48 Order name: PT-INR; Complete Time: 20:36 08/07 19:48 Order name: Troponin (emerg Dept Use Only); Complete Time: 20:36 08/07 19:48 Order name: XRAY Chest (1 view) 08/07 19:48 Order name: Lipase; Complete Time: 20:36 08/07 20:39 Order name: CT Abd/Pelvis - IV Contrast Only cp 08/07 21:41 Order name: Urine Dipstick--Ancillary (enter results) ms 08/07 21:41 Order name: Urine --Ancillary (enter results) ms 08/07 19:48 Order name: EKG; Complete Time: 19:50 cp 08/07 19:48 Order name: Cardiac monitoring; Complete Time: 20:04 08/07 19:48 Order name: EKG - Nurse/Tech; Complete Time: 20:04 08/07 19:48 Order name: IV Saline Lock; Complete Time: 20:04 cp 08/07 19:48 Order name: Labs collected and sent; Complete Time: 20:04 08/07 19:48 Order name: O2 Per Protocol; Complete Time: 20:04 cp 02 19:48 Order name: O2 Sat Monitoring; Complete Time: 20:04 cp 08/07 21:31 Order name: Urine Dipstick-Ancillary (obtain specimen); Complete Time: 21:54 cp 08/07 21:31 Order name: Urine Test (obtain specimen); Complete Time: 21:54 cp 08/07 23:06 Order name: PO challenge; Complete Time: 23:41 cp EC:45 Rate is 53 beats/min. Rhythm is regular. CO interval is shortened at 84 msec. QRS cp interval is prolonged at 102 msec. QT interval is normal. T waves are Flattened in lead aVL. Interpreted by me. Reviewed by me. Administered Medications: 20:17 Drug: NS 0.9% 1000 ml Route: IV; Rate: 1 bolus; Site: right antecubital; ea 20:17 Drug: Pepcid 20 mg Route: IVP; Site: right antecubital; ea 21:00 Follow up: Response: No adverse reaction ea 20:17 Drug: Zofran 4 mg Route: IVP; Site: right antecubital; ea 21:00 Follow up: Response: No adverse reaction ea Disposition: 08/08 07:36 Co-signature as Attending Physician, Walter Clark MD I agree with the assessment and 4 plan of care. Disposition: 08/07/19 23:11 Discharged to Home. Impression: Other chest pain, Nausea and vomiting, Diarrhea, unspecified. - Condition is Stable. - Discharge Instructions: Food Choices to Help Relieve Diarrhea, Adult, Nonspecific Chest Pain, Dehydration, Adult, Diarrhea, Adult, Nausea and Vomiting, Adult. - Prescriptions for Pepcid 20 mg Oral Tablet - take 1 tablet by ORAL route every 12 hours for 10 days; 20 tablet. promethazine 25 mg Oral Tablet - take 1 tablet by ORAL route every 6 hours As needed; 20 tablet. - Medication Reconciliation Form, Thank You Letter, Antibiotic Education, Prescription Opioid Use form. - Follow up: Private Physician; When: 2 - 3 days; Reason: Recheck today's complaints. - Problem is new. - Symptoms have improved. Signatures: Dispatcher [employer] EDMS Donell Arndt PA PA cp Antunez, Elena, RN RN ea Wadley, Terrence, MD MD tw4 Corrections: (The following items were deleted from the chart) 08/07 20:37 20:37 Normal except: BUN 6; GFR 73. cp cp 23:49 23:11 08/07/2019 23:11 Discharged to Home. Impression: Other chest pain; Nausea and ea vomiting; Diarrhea, unspecified. Condition is Stable. Forms are Medication Reconciliation Form, Thank You Letter, Antibiotic Education, Prescription Opioid Use. Follow up: Private Physician; When: 2 - 3 days; Reason: Recheck today's complaints. Problem is new. Symptoms have improved. cp
[2019-08-08 00:36] VITALS: O2SAT 100
[2019-08-08 00:40] VITALS: BP 114/68; TEMP 98
--- NOTE | 2019-08-08 06:14 | EKG ---
Test Date: 2019-08-07 Test Time: 19:37:31 [employer] Remover: KATHERIN MEASUREMENT RESULTS: Intervals: Rate: 53 AK: 84 QRSD: 102 QT: 452 QTc: 424 [place]: P: 39 AK: 84 QRS: 66 T: 54 INTERPRETIVE STATEMENTS: Sinus bradycardia with short AK Otherwise normal ECG Compared to ECG 07/24/2019 22:45:49 Short AK interval now present Sinus rhythm no longer present Electronically Signed On 08-08-19 06:13:54 SLIDE FASTENER REPAIRER by Sung Zaidi
--- NOTE | 2019-08-08 10:13 | RAD REPORT ---
EXAM DESCRIPTION: CT - Abdomen Pelvis W Contrast - 08/07/2019 10:50 pm CLINICAL HISTORY: Diarrhea;Nausea / vomiting COMPARISON: 07/25/2019 TECHNIQUE: CT of the abdomen and pelvis performed following IV administration of iodinated contrast FINDINGS: Lung Bases: The visualized lung bases are clear. Bones: Postoperative change of the left acetabulum. Abdomen: Liver: The liver has normal size and density. No intrahepatic mass or biliary dilatation. Gallbladder: Prior cholecystectomy. Spleen, Pancreas, and Adrenal Glands: The spleen, pancreas, and adrenal glands are unremarkable. Kidneys: The kidneys have normal size without evidence of solid mass or hydronephrosis. Vasculature: The aorta and IVC have normal caliber and position. The portal vein is patent. The pro ximal visceral and renal arteries are patent. Stomach: The stomach and duodenum have normal course. Other: No free intraperitoneal air. No free fluid or lymphadenopathy. Pelvis: Bladder: Urinary bladder is unremarkable. Bowel: No dilated loops of large or small bowel. Scattered diverticula of the colon. The colon is n ot well distended. Appendix: Normal appendix. Pelvis: Uterus is not enlarged. IMPRESSION: 1. No acute inflammatory or obstructive process identified. This exam was performed according to our departmental dose-optimization program, which includes autom ated exposure control, adjustment of the mA and/or kV according to patient size and/or use of iterati ve reconstruction technique. Electronically signed by: New Pritchett 08/07/2019 10:23 PM [employer] Due to temporary technical issues with the PACS/Fluency reporting system, reports are being signed by the in house radiologist as a courtesy to ensure prompt reporting. The interpreting radiologist is f ully responsible for the content of the report.
== END 2019-08-07 23:49 | disposition home or self-care (01) ==
LOC: ER 19:29
DX: R11.2 Nausea with vomiting, unspecified (principal); R19.7 Diarrhea, unspecified; Z88.1 Allergy status to other antibiotic agents; Z88.5 Allergy status to narcotic agent
CPT/HCPCS: 36415; 71045; 74177; 80048; 80076; 81003; 81025; 83690; 83735; 83880; 84484; 85025; 85610; 93005; 96374; 96375; 99285; J2405; J7030; Q9967

== ENCOUNTER 2020-05-03 03:58 | Emergency (ER) | payer OTHER, SELFPAY ==
--- OUTSIDE RECORDS SUMMARY | 2020-05-03 04:00 | XMS REPORT | Summary of Care ---
:1985 Author Organization [facility] - Health Address [address] [place] [address] Care Team Providers Name Role Phone Unavailable Primary Care Provider Unavailable Encounter Details Date Type Department Care Team Description 03/13/2020 Orders Only [facility] Doctor Unassigned, No [address] [facility] [place] [address] [address] [place] [address] Allergies No Known Allergiesdocumented as of this encounter (statuses as of 03/13/2020) Medications Medication Sig Dispensed Refills Start Date End Date Status omeprazole 20 mg TAKE ONE CAPSULE 0 12/03/2016 Active capsule BY MOUTH EVERY DAY ibuprofen 600 mg Take 1 tablet by 30 tablet 2 12/23/2016 Active tabletIndications: mouth every 6 Chronic midline low (six) hours as back pain without needed for Pain sciatica (scale 4-6). documented as of this encounter (statuses as of 03/13/2020) Active Problems Problem Noted Date Cervical high risk HPV (human papillomavirus) test pos itive 09/16/2016 Overview: On 08/2016 pap smear Well woman exam 09/10/2016 Screen for STD (sexually transmitted disease) 09/11/19 17 Unspecified symptom associated with female genital org ans 09/10/2016 Encounter for other contraceptive management 7 Family planning counseling 09/10/2016 Morbid obesity, unspecified obesity type [E66.01] 08/27 documented as of this encounter (statuses as of 03/13/2020) Social History Tobacco Use Types Packs/Day Years Used Date Never Smoker Smokeless Tobacco: Never Used Alcohol Use Drinks/Week oz/Week Comments Yes 0 Standard drinks or equivalent 0.0 social events Sex Assigned at Date Recorded Not on file documented as of this encounter Last Filed Vital Signs Not on filedocumented in this encounter Plan of Treatment Health Maintenance Due Date Last Done Comments VARICELLA VACCINES (1 of 2 - 1986 2-dose childhood series) Depression Screening 1997 DTaP,Tdap,and Td Vaccines (1 - 2004 Tdap) PAP SMEAR 09/11/2019 09/10/2016 INFLUENZA VACCINE (#1) 2020 PNEUMOCOCCAL 0-64 YEARS COMBINED Aged Out No longer eligible based on SERIES patient's age to complete this topic documented as of this encounter Procedures Procedure Name Priority Date/Time Associated Diagnosis Comme nts ASSIGNMENT OF BENEFITS Routine 03/13/2020 2:07 PM CDT documented in this encounter Results Not on filedocumented in this encounter Insurance Payer Benefit Plan Subscriber ID Effective Phone Address Typ e / Group Dates [facility] [place] [facility] [id number] 2016-Prese [phone] Medicaid [place]OMEN nt [id number] [place] [address] documented as of this encounter Advance Directives Name Relationship Healthcare Agent Relationship Co mmunication Nancy Vela Mother Health Care Agent [phone] ( Mobile) Rachel Vela Sibling First Alternate Health Care Agen t
--- OUTSIDE RECORDS SUMMARY | 2020-05-03 04:00 | XMS REPORT | Continuity of Care Document ---
:1985 Author Organization [facility] t Address [address] [place] [address] Care Team Providers Name Role Phone Koki Fan Attending Clinician 3, m Us Room Attending Clinician Unavailable Faculty, [facility] Attending Clinician Unavailable Lab Attending Clinician Unavailable [facility] Attending Clinician Unavailable Problems Condition Condition Condition Status Onset Resolution Last Treating Co mments Source Name Details Category Date Date Treatment Clinician Date Closed Closed Problem Active Univers fracture fracture ity of [facility] acetabulum acetabulum Ph ysici ans Allergies, Adverse Reactions, Alerts This patient has no known allergies or adverse reactions. Medications This patient has no known medications. Procedures Procedure Date / Time Performed Performing Clinician [facility] e [U] XRAY PELVIS MIN 3 2018-11-15 00:00:00 [facility] [address] Physicians [U] XRAY PELVIS MIN 3 2018-10-08 00:00:00 [facility] [address] Physicians Encounters Start End Encounter Admission Attending Care Care Encounter Source Date/Time Date/Time Type Type Clinicians Facility Department ID 2020-05-01 2020-05-01 Abstract TEJAS Dinh [id number] 00:00:00 00:00:00 Lynne Telles DONOR RELATIONS MANAGER [id number] [facility] [id number] MATERNAL [id number] & CHILD [address] [place] [address] 2020-04-27 2020-04-27 Cisco Administrator 3, [facility] [id number] 08:48:19 10:03:19 Visit [facility] HEALTH [id number] [facility] [id number] 2020-04-23 2020-04-23 Routine A[place]ipe, [facility] [id number] 09:24:58 10:15:07 Lynne C DONOR RELATIONS MANAGER [id number] Visit [facility] [id number] MATERNAL [id number] & CHILD [address] [facility] 2020-04-09 2020-04-09 Routine Faculty, [facility] [id number] 13:36:15 14:26:16 Ang Rmchp DONOR RELATIONS MANAGER [id number] Visit [facility] [id number] MATERNAL [id number] & CHILD 107 [facility] 2020-03-14 2020-03-14 Cisco Administrator Lab, [facility] [id number] 14:32:03 15:22:32 Visit Ang-Rmchp DONOR RELATIONS MANAGER [id number] [facility] [id number] MATERNAL [id number] & CHILD 107 [facility] 2018-11-24 2018-11-24 Appointmen [facility] [id number] Univers 09:30:00 09:30:00 t; ROBBIE MERRILL [place], [place] ROBBIE MERRILL Physici ans 2018-10-13 2018-10-[facility] [id number] Univers 09:30:00 09:30:00 t; ROBBIE MERRILL [place], [place] ROBBIE MERRILL Physici ans 2018-09-15 2018-09-15 Appointmen [facility] [id number] Univers 11:00:00 11:00:00 t; ROBBIE MERRILL [place], [place] ROBBIE MERRILL Physici ans Results Test Description Test Time Test Comments Results Result [facility] e Comments [U] XRAY PELVIS 2018-09-15 Images Universit y of MIN 3 [id number] 11:51:00 acquired, not [place] reported on Physicians this accession number.
--- OUTSIDE RECORDS SUMMARY | 2020-05-03 04:01 | XMS REPORT | Summary of Care ---
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 Abnormal results A positive Pap test result means some cells in the sample showed abnormal changes. These results aregrouped by the type of cell change and the location, or extent, of the changes. Depending on the results, you may need further testing. Inflammation. Noncancerous changes are present. They may be due to normal cell repair. Or, they may be caused by an infection, such as HPV or yeast. Further testing may be needed. (Also called reactive cellular changes.) Atypical squamous cells. Test results are unclear. Cells on the surface of the cervix show changes, but their significance is not yet known. Testing for HPV and other sexually transmitted infections(STIs) may be needed. Treatment may be required. (Reported as ASC-US or ASC-H.) Atypical glandular cells. Cells lining the cervical canal show abnormal changes. Further testing is likely. You may also have treatment to destroy or remove problem cells. (Reported as AGC.) Mild dysplasia. Cells show distinct changes. More testing or HPV typing may be done. You may alsohave treatment to destroy or remove problem cells. (Reported as low-grade LAYA or FAROOQ 1.) Moderate to severe dysplasia. Cells show precancerous changes. Or, noninvasive cancer (carcinoma in situ) may be present. Treatment to destroy or remove problem cells is likely. (Reported as high-grade LAYA or FAROOQ 2 or FAROOQ 3.) Cancer. Different types of cancer may be detected by your Pap test. More tests to assess the cancer's extent are likely. The type of treatment will depend on the test results and other factors, suchas age and health history. (Reported as squamous cell carcinoma, endocervical adenocarcinoma in situ, or adenocarcinoma.) [employer] last reviewed this educational content on 01/27/[id number] [employer]. [address] [place] [address], [place] [address]. All rights reserved. This information is not intended as a substitute for professional medical care. Always follow your healthcare professional's instructions. documented in this encounter Progress Notes Lynne Dinh, WHCNP - 03/13/2020 2:00 PM CDT Chief complaint: Chief Complaint Patient presents with Initial Visit HPI CC: Follow Up Visit Karyna Vela is a 34 year old, , /White female. Patient's last menstrual period was12/17/2019 (within weeks). She is 12w3d with an intrauterine . Her estimated date of delivery is 09/22/2020, by Last Menstrual Period. She complains today of: Nausea. She reports 5 episodes of nausea over 1 week(s) which occurs intermittently. Patient tolerates liquids and some food. Associated symptom(s) include vomiting. Symptoms are worse with food odors. Symptoms are relieved with avoidance of odors.. She reports +FM and denies contractions, LOF and bleeding today. Histories OB History Para Term AB Living 3 2 2 2 SAB TAB Ectopic Multiple Live Births 2 # Outcome Date GA Lbr Darnell/2nd Weight Sex Delivery Anes PTL Lv 3 Current 2 Term 03/05/13 40w0d 6 lb 12 oz (3.062 kg) F Vag-Spont N CALDERON 1 Term 07/09/11 40w0d 6 lb 13 oz (3.09 kg) M Vag-Spont N CALDERON Past Medical History: Diagnosis Date Asthma Cervical high risk HPV (human papillomavirus) test positive 09/16/2016 Family History Problem Relation Age of Onset High cholesterol Mother Arthritis Mother Diabetes Father High cholesterol Father Asthma Brother defects NoFHx Breast Cancer NoFHx Colon Cancer NoFHx Ovarian Cancer NoFHx Uterine Cancer NoFHx Cancer NoFHx Depression NoFHx Genetic NoFHx Heart NoFHx Hypertension NoFHx Mental retardation NoFHx Neurological NoFHx Osteoporosis NoFHx Other - see comments NoFHx Psychiatry NoFHx Family Status Relation Name Status Mo (Not Specified) Fa (Not Specified) Bro (Not Specified) NoFHx (Not Specified) Past Surgical History: Procedure Laterality Date CHOLECYSTECTOMY at age 16 yrs [place] PELVIC RING FRACTURE UNI/PARAM left pelvic fracture 07/2018 URETERAL PELVIC JUNCTION REPAIR 2018 Social History Socioeconomic History Marital status: Single Spouse name: Not on file Number of children: Not on file Years of education: Not on file Highest education level: Not on file Occupational History Not on file Social Needs Financial resource strain: Not on file Food insecurity Worry: Not on file Inability: Not on file Transportation needs Medical: Not on file Non-medical: Not on file Tobacco Use Smoking status: Never Smoker Smokeless tobacco: Never Used Substance and Sexual Activity Alcohol use: Not Currently Comment: social events Drug use: No Sexual activity: Yes control/protection: None Comment: last sexual intercourse 12/17/2019 Lifestyle Physical activity Days per week: Not on file Minutes per session: Not on file Stress: Not on file Relationships Social connections Talks on phone: Not on file Gets together: Not on file Attends congregational service: Not on file Active member of club or organization: Not on file Attends meetings of clubs or organizations: Not on file Relationship status: Not on file Intimate partner violence Fear of current or ex partner: Not on file Emotionally abused: Not on file Physically abused: Not on file Forced sexual activity: Not on file Other Topics Concern Not on file Social History Narrative Pt lives with parents and children. Pt denies current or past physical, sexual or emotional abuse. Pt states she feels safe at home. Social History Substance and Sexual Activity Sexual Activity Yes control/protection: None Comment: last sexual intercourse 12/17/2019 Genetic Screen Autism / Mental Retardation: No Jose Disease: No Congenital Heart Defect: No Cystic Fibrosis: No Down Syndrome: No Familial Dysautonomia: No Hemophilia or other Blood Disorders: No Anna Chorea: No Maternal Metabolic Disorder--specify (eg. Type 1 Diabetes, PKU): No Muscular Dystrophy: No Neural Tube Defect: No Recurrent Loss or a Stillbirth: No Sickle Cell Disease or Trait: No Baldomero Sachs: No Teratological Substances (specify type & strength/dose) since LMP: No Thalassemia: No Other Inherited Genetic or Chromosomal Disorder (specify): No No Significant History of Genetic Disorders: No Significant History of Genetic Disorders Labs Labs are pending. , No visits with results within 1 Month(s) from this visit. Latest known visit with results is: Nurse Visit on 12/24/2016 Component Date Value HIV Ag-Ab Multiplex 12/24/2016 Non-reactive HIV Multiplex Semi-quant* 12/24/2016 0 and No visits with results within 3 Month(s) from this visit. Latest known visit with results is: Nurse Visit on 12/24/2016 Component Date Value HIV Ag-Ab Multiplex 12/24/2016 Non-reactive HIV Multiplex Semi-quant* 12/24/2016 0 Radiology No new radiology. Allergies Karyna is allergic to erythromycin. Medications aKryna has a current medication list which includes the following prescription(s): promethazine, ibuprofen, and omeprazole. Review of Systems Constitutional: Negative. HENT: Negative. Eyes: Negative. Respiratory: Negative. Breasts: Negative. Cardiovascular: Negative. Gastrointestinal: Positive for nausea and vomiting. Genitourinary: Negative. Musculoskeletal: Negative. Skin: Negative. Neurological: Negative. Psychiatric/Behavioral: Negative. Endocrine: Endocrine negative BP 101/72 (BP Location: Right arm, Patient Position: Sitting, BP CUFF SIZE: Adult Large) | Pulse 61 | Temp 36 C (96.8 F) (Oral) | Resp 16 | Ht 5' 2" (1.575 m) | Wt 207 lb 9 oz (94.1 kg) | LMP12/17/2019 (Within Weeks) | BMI 37.96 kg/m Pregravid BMI: Could not be calculated Physical Exam Vitals reviewed. Constitutional: She is oriented to person, place, and time. She appears well- developed. Her body habitus is normal. Neck: No tenderness and no mass. No thyroid nodules and no thyromegaly palpated. No neck adenopathy. Cardiovascular: Regular rate and rhythm. No gallop, no friction rub and no murmur auscultated. No peripheral edema present. Pulmonary/Chest: Breath sounds clear to auscultation. Normal inspiratory effort. Abdominal: Abdomen is soft. No mass palpated. No tenderness present. There is no hepatosplenomegaly,splenomegaly or hepatomegaly. There is no rigidity. No hernia palpated or inspected. Neuro/Psychiatric: She has a normal mood and affect. She is oriented to person, place, and time. Skin: No lesion, no rash and no ulceration present. Lymphadenopathy: No neck adenopathy present. No axillary adenopathy present. No inguinal adenopathy present. Breast: Right breast exhibits no mass, no nipple discharge and no tenderness. Left breast exhibits no mass, no nipple discharge and no tenderness. Breasts are symmetrical. Normal left breast and normalright breast Rectal: Rectal exam with normal anal tone. No mass, no external hemorrhoid and no internal hemorrhoid palpated or inspected. External genitalia: Normal external genitalia appropriate for age. Normal hair distribution. No labial lesion. Urethral meatus: Normal urethral meatus size, location and no lesion. No prolapse present. Normal urethral meatus Urethra: Normal urethra. No urethral tenderness, no mass and no urethral scarring palpated. Bladder: Bladder has no fullness, no mass palpated and no tenderness. Normal bladder Vagina:Normal vagina. No lesion inspected. Normal estrogen effect. Normal support. No abnormal vaginal discharge found. No lesions in the vagina. Cervix: Normal cervix. No lesion. No tenderness and no discharge present. Closed thick Uterus: Uterus is normal size, normal contour, normal position and non-tender. Normal uterus Adnexa: Right adnexa without tenderness, ovary enlargement or mass. Left adnexa without tenderness, ovary enlargement or mass. Normal left adnexa and normal right adnexa Anus/perineum: Normal perineum and normal anus. PHYSICAL: General Exam: HEENT: Normal Neurological: Normal Abdomen: Normal gravid Extremities: Normal Pelvic Exam: Vulva: Normal Vagina: Normal Cervix: Normal Membrane status: Intact Uterus: 16 Weeks Adnexa: Normal Rectum: Normal Assessment/Plan Return to clinic in 2 weeks. follow up with M Return to clinic on tomorrow for labs Denies zika virus risk, signs and symptoms such as fever,rash,joint pain, conjunctivitis (red eyes),muscle pain, headaches; outside [place] travel to areas affected by zika, and FOB exposure to zika. Educated on use of mosquito repellent. Supervision of high risk , antepartum (primary encounter diagnosis) Multiparity Multigravida of advanced maternal age in second trimester Comment: initial visit with labs and physical exam Plan: POCT TEST, POCT URINALYSIS W/O SPECIFIC GRAVITY, CBC WITH DIFF, GC & CHLAMYDIA AMPLIFIED ASSAY, HEPATITIS B SURFACE ANTIGEN, HIV 1/2 AG-AB WITH REFLEX, POCT URINALYSIS W SPECIFIC GRAVITY, WORKUP, BLOOD BANK, RUBELLA SCREEN ([facility]) IGG, GALV ONLY - SYPHILIS IGG/IGM, URINE CULTURE, VZV ANTIBODY SCREEN, Glucose 1 Hour Post Prandial, WORKUP, BLOOD BANK, CBC WITH DIFF, GC & CHLAMYDIA AMPLIFIED ASSAY, HEPATITIS B SURFACE ANTIGEN, HIV 1/2 AG-AB WITH REFLEX, RUBELLA SCREEN ([place]) IGG, GALV ONLY - SYPHILIS IGG/IGM, URINE CULTURE, VZV ANTIBODY SCREEN, Glucose 1 Hour Post Prandial Obesity in Comment: see bmi Plan: BMI discussed, appropriate weight gain, sensible diet, and exercise, increased fiber and waterintake and protein low in fat. Encouraged exercise for 30 min everyday; begin regimen with caution to prevent injury. Encouraged to decrease BMI to <25. Closed nondisplaced fracture of left acetabulum, unspecified portion of acetabulum, sequela Comment: reports Plan: CONSULT/REFERRAL MATERNAL MEDICINE FACULTY/FELLOW Preferred location: [facility] Nausea/vomiting in Comment: reports Plan: proMETHazine 25 mg tablet This visit did not involve counseling and coordination that comprised more than 50% of the visit time. SOFIYA Marie 03/13/2020 4:24 PM Steffi Nazario RN - 03/13/2020 2:00 PM CDTPatient is 34 year old female here for current . Patient is . 1) Previous delivery methods vaginal 2) Patient is mild/moderate experiencing cramping 3) Patient is not experiencing bleeding. 4) LMP 12/17/2019- unknown about 3 months 5) Last Pap was: 12/29/2019 ROR signed for [facility] Results: Neg per pt 6) Have you had a flu vaccine this season? No, declines 7) PPD candidate? no 8) Patient complains of Excessive nausea, mild to moderate cramping. 9) Patient denies current physical, emotional, or sexual abuse. Patient states she currently feels safe at home. 10) ROR signed for pelvic fracture surgery 07/2018. documented in this encounter Miscellaneous Notes Addendum Note - Karyna Drake - 03/13/2020 2:00 PM CDT Addended by: KARYNA DRAKE on: 03/13/2020 04:30 PM Modules accepted: Orders Addendum Note - Lynne Dinh WHCNP - 03/13/2020 2:00 PM CDT Addended by: LYNNE HEAD on: 03/13/2020 04:26 PM Modules accepted: Orders documented in this encounter Plan of Treatment Date Type Specialty Care Team Description 03/14/2020 Ip Paralegal Visit [facility], [place] 03/26/2020 Routine Visit [facility], Marvin corona m Name Type Priority Associated Diagnoses Date/Ti me CBC WITH DIFF LAB Routine Supervision of high risk 4:10 PM CDT , antepartum GC & CHLAMYDIA LAB Routine Supervision of high risk 0 03/13/2020 4:19 PM CDT AMPLIFIED ASSAY , antepartum HEPATITIS B SURFACE LAB Routine Supervision of high r isk 03/13/2020 4:10 PM CDT ANTIGEN , antepartum HIV 1/2 AG-AB WITH LAB Routine Supervision of high ri sk 03/13/2020 4:10 PM CDT REFLEX , antepartum RUBELLA SCREEN ([facility]) LAB Routine Supervision of hig h risk 03/13/2020 4:10 PM CDT IGG , antepartum GALV ONLY - SYPHILIS LAB Routine Supervision of high risk 03/13/2020 4:10 PM CDT IGG/IGM , antepartum URINE CULTURE LAB Routine Supervision of high risk 4:19 PM CDT , antepartum VZV ANTIBODY SCREEN LAB Routine Supervision of high r isk 03/13/2020 4:10 PM CDT , antepartum Glucose 1 Hour Post LAB Routine Supervision of high r isk 03/13/2020 4:10 PM CDT Prandial , antepartum SARS-COV-2 IGG LAB Routine Screening for viral 2019 4:10 PM CDT disease Name Type Priority Associated Diagnoses Order S chedule CBC WITH DIFF LAB Routine Supervision of high risk Ex pected: 03/13/2020, , antepartum s: 03/13/2021 GC & CHLAMYDIA LAB Routine Supervision of high risk E xpected: 03/13/2020, AMPLIFIED ASSAY , antepartum Exp ires: 03/13/2021 HEPATITIS B SURFACE LAB Routine Supervision of high r isk Expected: 03/13/2020, ANTIGEN , antepartum s: 03/13/2021 HIV 1/2 AG-AB WITH LAB Routine Supervision of high ri sk Expected: 03/13/2020, REFLEX , antepartum s: 03/13/2021 POCT URINALYSIS W LAB Routine Supervision of high ris k 20 Occurrences starting SPECIFIC GRAVITY , antepartum until 01/07/2021 WORKUP, BLOOD LAB Routine Supervision of hig h risk Expected: 03/13/2020, BANK , antepartum s: 03/13/2021 RUBELLA SCREEN ([facility]) LAB Routine Supervision of hig h risk Expected: 03/13/2020, IGG , antepartum s: 03/13/2021 GALV ONLY - SYPHILIS LAB Routine Supervision of high risk Expected: 03/13/2020, IGG/IGM , antepartum s: 03/13/2021 URINE CULTURE LAB Routine Supervision of high risk Ex pected: 03/13/2020, , antepartum s: 03/13/2021 VZV ANTIBODY SCREEN LAB Routine Supervision of high r isk Expected: 03/13/2020, , antepartum s: 03/13/2021 Glucose 1 Hour Post LAB Routine Supervision of high r isk Expected: 03/20/2020, Prandial , antepartum s: 03/13/2021 SARS-COV-2 IGG LAB Routine Screening for viral Expect ed: 03/13/2020, disease Expires: 2020 Health Maintenance Due Date Last Done Comments VARICELLA VACCINES (1 of 2 - 1986 2-dose childhood series) DTaP,Tdap,and Td Vaccines (1 2004 - Tdap) PAP SMEAR 09/11/2019 09/10/2016 INFLUENZA VACCINE (#1) 2020 Depression Screening 03/13/2021 03/13/2020, 03/13/2020 PNEUMOCOCCAL 0-64 YEARS Aged Out No longe r eligible based COMBINED SERIES on patient's age to complete this to pic documented as of this encounter Procedures Procedure Name Priority Date/Time Associated Diagnosis Comme nts POCT URINALYSIS W/O Routine 03/13/2020 3:00 Supervision of hi gh Results for this SPECIFIC GRAVITY PM CDT risk , procedur e are in antepartum the results section. POCT TEST Routine 03/13/2020 3:00 Supervision of fl gh Results for this PM CDT risk , procedure ar e in antepartum the results section. documented in this encounter Results POCT URINALYSIS W/O SPECIFIC GRAVITY (03/13/2020 3:00 PM CDT) Pathologist Sig nature POCT PH U 7 5 - 8 mg/dl POCT U LEUK EST Trace Negative - Negative POCT U NIT Neg Negative - Negative POCT U PROT Trace Negative - Negative POCT U GLU Neg Negative - Negative POCT U KETONE None Negative - Negative POCT U BLD Neg Negative - Negative Specimen Urine - URINE, CLEAN CATCH POCT TEST (03/13/2020 3:00 PM CDT) Pathologist Sig nature POCT PREG Positive On board controls acceptable Yes with C Line POCT PREG LOT # POCT PREG TEST DATE Specimen Urine - URINE, CLEAN CATCH documented in this encounter Visit Diagnoses Diagnosis Supervision of high risk , ante - Primary Multiparity Obesity in Obesity complicating , childbir th, or the puerperium, unspecified as to episode of care or not applicable Closed nondisplaced fracture of left jose david tabulum, unspecified portion of acetabulum, sequela Nausea/vomiting in Unspecified vomiting of , unspe cified as to episode of care Multigravida of advanced maternal age in second trimester Screening for viral disease Special screening examination for unspec ified viral disease documented in this encounter Insurance Payer Benefit Plan / Subscriber ID Effective Phone Address T ype Group Dates MEDICAID MEDICAID PENDING [id number] [place] [address] documented as of this encounter Advance Directives Name Relationship Healthcare Agent Relationship Co mmunication Nancy Vela Mother Health Care Agent [phone] ( Mobile) Rachel Vela Sibling First Alternate Health Care Agen t
--- OUTSIDE RECORDS SUMMARY | 2020-05-03 04:01 | XMS REPORT | Summary of Care ---
:1985 Author Organization [facility] Address [address] [place] [address] Care Team Providers Name Role Phone Koki Dinh Primary Care Provider Reason for Referral (Routine) Status Reason Specialty Diagnoses / Referred By Referred To Procedures Contact Contact New Request Maternal Diagnoses Closed nondisplaced fracture of left acetabulum, unspecified portion of acetabulum, sequela Fabrizio, Medicine Procedures CONSULT/REFERRAL MATERNAL MEDICINE FACULTY/FELLOW Preferred location: SOFIYA Baker [address] [place] [address] Reason for Visit Reason Comments Initial Visit Encounter Details Date Type Department Care Team Description 03/13/2020 Initial [facility]- Henok Dinh vision of high risk , antepartum (Primary Dx); Visit SOFIYA Baker Multiparity; [address] [place] in ; Street ST Closed nondisplaced fracture of left jose david tabulum, unspecified portion of acetabulum, sequela; [place], [place] Nausea/vomiting in ; [address] [place], [place] Multigravida of advanced mat ernal age in second trimester [phone] Allergies Active Allergy Reactions Severity Noted Date [...] 20s.But the USPSTF does not recommend CBE. [employer] last reviewed this educational content on 03/29/201719990107-2777 [employer] [place] [address], [place] [address]. All rights reserved. This information is not [...] can make now to protect your future. CAPNIA last reviewed this educational content on 05/29/201819991100-5028 [employer] [place] [address]. All rights reserved. This information is not [...] her child during , childbirth, and . CAPNIA last reviewed this educational content on 11/27/201819998461-3893 [employer]. [address] [place] [address]. All rights reserved. This information is not [...] breast self-examination (BSE). These experts include the [employer] and the [employer] Congress of Obstetricians and Gynecologists. Some experts [...] benign. This means they are not cancer. CAPNIA last reviewed this educational content on 01/27/201719998726-8130 [employer] [address] [place] [address]. All rights reserved. This information is not intended as a substitute for professional medical care. Always follow your healthcare professional's instructions. Patient Education Clinical Breast Exam Many health organizations recommend a yearly clinical breast exam. This exam may be done by a payroll and benefits assistant, family healthcare provider, nurse practitioner, nurse hygiene assistant, or specially trained nurse. Yearly breast exams [...] Guidelines for having clinical breast exams The [employer] College of Obstetricians and Gynecologists recommends that [...] provider about what is best for you. CAPNIA last reviewed this educational content on 01/27/201719993895-[address] [employer] [place] [address]. All rights reserved. This information is not intended as a substitute for professional medical care. Always follow your healthcare professional's instructions. Patient Education Understanding [employer] My[employer]ate The USDA (U.S. Department of Agriculture) [...] get this muchfrom the food you eat. CAPNIA last reviewed this educational content on 01/27/201719996525-1397 [employer] [place] [address], [place] [address]. All rights reserved. This information is not [...] carcinoma, endocervical adenocarcinoma in situ, or adenocarcinoma.) CAPNIA last reviewed this educational content on 01/27/201719991821-[address]33 [employer] [place] [address], [place] [address]. All rights reserved. This information is not intended as a substitute for professional medical care. Always follow your healthcare professional's instructions. documented in this encounter Progress Notes Lynne Dinh, WHCNP - 03/13/2020 2:00 PM CDT Chief complaint: Chief Complaint Patient presents with Initial Visit HPI CC: Follow Up Visit Lisbet Vela is a 34 year old, , [...] Laterality Date CHOLECYSTECTOMY at age 16 yrs [place] PELVIC RING FRACTURE UNI/PARAM left pelvic fracture 07/2018 URETERAL PELVIC JUNCTION REPAIR 2019 Social History Socioeconomic History Marital status: Single [...] file Gets together: Not on file Attends rastafarian service: Not on file Active member of [...] No Hemophilia or other Blood Disorders: No [place] Chorea: No Maternal Metabolic Disorder--specify (eg. Type [...] 12/24/2016 0 Radiology No new radiology. Allergies Lisbet is allergic to erythromycin. Medications Lisbet has a current medication list which includes [...] clinic in 2 weeks. follow up with MFM Return to clinic on tomorrow for labs [...] Last Pap was: 12/29/2019 ROR signed for [facility] Results: Neg per pt 6) Have you had a flu vaccine this season? No, declines 7) PPD candidate? no 8) Patient complains of Excessive nausea, mild to moderate cramping. 9) Patient denies current physical, emotional, or sexual abuse. Patient states she currently feels safe at home. 10) ROR signed for pelvic fracture surgery 07/2018. documented in this encounter Plan of Treatment Date Type Specialty Care Team Description 03/14/2020 Card Assembler Visit [facility], [place] 03/26/2020 Routine Visit [facility] Faculty, Marvin corona [facility] Name Type Priority Associated Diagnoses Date/Ti me [...] 03/13/2020 4:10 PM CDT Prandial , antepartum Name Type Priority Associated Diagnoses Order S [...] Expected: 03/20/2020, Prandial , antepartum s: 03/13/2021 Health Maintenance Due Date Last Done Comments VARICELLA VACCINES (1 of 2 - 1986 2-dose childhood series) DTaP,Tdap,and Td Vaccines (1 2004 - Tdap) PAP SMEAR 09/11/2019 09/10/2016 INFLUENZA VACCINE (#1) 2020 Depression Screening 03/13/2021 03/13/2020, 03/13/2020 PNEUMOCOCCAL 0-64 YEARS Aged Out No longe r eligible based COMBINED SERIES on patient's age to complete [facility] to [facility] documented as of this encounter Procedures Procedure Name Priority Date/Time Associated Diagnosis Comme nts POCT URINALYSIS W/O Routine 03/13/2020 3:00 Supervision of hi gh Results for this SPECIFIC GRAVITY PM CDT risk , procedur e are in antepartum the results section. POCT TEST Routine 03/13/2020 3:00 Supervision of ri gh Results for this PM CDT risk [...] of advanced maternal age in second trimester documented in this encounter Insurance Payer Benefit Plan / Subscriber ID Effective Phone Address T ype Group Dates MEDICAID MEDICAID PENDING 2020-[address] [place] [address] (Home) [place] [address] documented as of this encounter Advance Directives Name Relationship Healthcare Agent Relationship Co mmunication Nancy Pabons Mother Health Care Agent [phone] ( Mobile) Rachel Dane Sibling [facility] Agen t
--- OUTSIDE RECORDS SUMMARY | 2020-05-03 04:01 | XMS REPORT | Summary of Care ---
:1985 Author Organization [facility] Address [address] [place] [address] Care Team Providers Name Role Phone Koki Dinh Primary Care Provider Reason for Referral (Routine) Status Reason Specialty Diagnoses / Referred By Referred To Procedures Contact Contact New Request Maternal Diagnoses Closed nondisplaced fracture of left acetabulum, unspecified portion of acetabulum, sequela Fabrizio, Medicine Procedures CONSULT/REFERRAL MATERNAL MEDICINE FACULTY/FELLOW Preferred location: SOFIYA Baker [address] [place] [address] Reason for Visit Reason Comments Initial Visit Encounter Details Date Type Department Care Team Description 03/13/2020 Initial [facility]- Henok Dinh vision of high risk , antepartum (Primary Dx); Visit Clayton Telles JERSON Multiparity; [address] [address] [place] in ; Street ST Closed nondisplaced fracture of left jose david tabulum, unspecified portion of acetabulum, sequela; [place], [place] Nausea/vomiting in ; [address] [place], [place] Multigravida of advanced mat ernal age in second trimester; [phone] Screening for viral disease [phone] Allergies Active Allergy Reactions Severity Noted Date [...] 20s.But the USPSTF does not recommend CBE. [employer] last reviewed this educational content on 03/29/201719993080-3726 The [employer]. [address] [place] [address], [place] [address]. All rights reserved. This information is not [...] can make now to protect your future. [employer] last reviewed this educational content on 05/29/201819992238-9646 The [employer]. [address] [place] [address]. All rights reserved. This information is not [...] her child during , childbirth, and . [employer] last reviewed this educational content on 11/27/201819994380-8704 The [employer]. [address] [place] [address]. All rights reserved. This information is not [...] breast self-examination (BSE). These experts include the [place] [employer] and the [place] Congress of Obstetricians and Gynecologists. Some experts [...] benign. This means they are not cancer. [employer] last reviewed this educational content on 01/27/201719992682-4659 The [employer]. [address] [place] [address]. All rights reserved. This information is not intended as a substitute for professional medical care. Always follow your healthcare professional's instructions. Patient Education Clinical Breast Exam Many health organizations recommend a yearly clinical breast exam. This exam may be done by a solo musician, family healthcare provider, nurse practitioner, nurse corporate general manager, or specially trained nurse. Yearly breast exams [...] Guidelines for having clinical breast exams The [place] [employer] of Obstetricians and Gynecologists recommends that [...] provider about what is best for you. [employer] last reviewed this educational content on 01/27/201719992985-4935 The [employer]. [address] [place] [address]. All rights reserved. This information is not [...] get this muchfrom the food you eat. [employer] last reviewed this educational content on 01/27/201719996072-9273 The [employer]. [address] [place] [address], [place] [address]. All rights reserved. This information is not [...] carcinoma, endocervical adenocarcinoma in situ, or adenocarcinoma.) [employer] last reviewed this educational content on 01/27/201719990398-9156 The [employer]. [address] [place] [address], [place] [address]. All rights reserved. This information is not [...] Laterality Date CHOLECYSTECTOMY at age 16 yrs [place] PELVIC RING FRACTURE UNI/PARAM left pelvic fracture [...] file Gets together: Not on file Attends muslim service: Not on file Active member of [...] Allergies Karyna is allergic to erythromycin. Medications Karyna has a current medication list which includes [...] Last Pap was: 12/29/2019 ROR signed for [facility] Results: Neg per pt 6) [...] Date Type Specialty Care Team Description 03/14/2020 Head Batcher Visit [facility], [place] 03/26/2020 Routine [...] POCT TEST Routine 03/13/2020 3:00 Supervision of mi gh Results for this PM CDT risk [...] T ype Group Dates MEDICAID MEDICAID PENDING 2020-[address] [place] [address] documented as of this encounter Advance Directives Name Relationship Healthcare Agent Relationship Co mmunication Nancy Vela Mother Health Care Agent [phone] ( Mobile) Rachel Vela Sibling [facility]
--- OUTSIDE RECORDS SUMMARY | 2020-05-03 04:01 | XMS REPORT | Summary of Care ---
:1985 Author Organization [facility] Address [address] [place] [address] Care Team Providers Name Role Phone Koki Dinh Primary Care Provider Reason for Referral (Routine) Status Reason Specialty Diagnoses / Referred By Referred To Procedures Contact Contact New Request Maternal Diagnoses Closed nondisplaced fracture of left acetabulum, unspecified portion of acetabulum, sequela Fabrizio, Medicine Procedures CONSULT/REFERRAL MATERNAL MEDICINE FACULTY/FELLOW Preferred location: SOFIYA Baker [address] [place] [address] Reason for Visit Reason Comments Initial Visit Encounter Details Date Type Department Care Team Description 03/13/2020 Initial [facility]- Henok Dinh vision of high risk , antepartum (Primary Dx); Visit Clayton Telles JERSON Multiparity; [address] [place] in ; Street ST Closed nondisplaced fracture of left jose david tabulum, unspecified portion of acetabulum, sequela; [place], [place] Nausea/vomiting in ; [address] [place], [place] Multigravida of advanced mat ernal age in second trimester; [phone] Screening for viral disease [phone] Allergies Active Allergy Reactions Severity Noted Date [...] 20s.But the USPSTF does not recommend CBE. [employer] last reviewed this educational content on 03/29/201719991018-6625 The [employer]. [address] [place] [address], [place] [address]. All rights reserved. This information is not [...] can make now to protect your future. [employer] last reviewed this educational content on 05/29/201819999529-4348 The [employer]. [address] [place] [address]. All rights reserved. This information is not [...] her child during , childbirth, and . [employer] last reviewed this educational content on 11/27/201819992766-0585 The [employer]. [address] [place] [address]. All rights reserved. This information is not [...] breast self-examination (BSE). These experts include the [place] [employer] and the [place] Congress of Obstetricians and Gynecologists. Some experts [...] benign. This means they are not cancer. [employer] last reviewed this educational content on 01/27/201719995640-6030 The [employer]. [address] [place] [address]. All rights reserved. This information is not intended as a substitute for professional medical care. Always follow your healthcare professional's instructions. Patient Education Clinical Breast Exam Many health organizations recommend a yearly clinical breast exam. This exam may be done by a hospice liaison, family healthcare provider, nurse practitioner, nurse armored transport service manager, or specially trained nurse. Yearly breast [...] Guidelines for having clinical breast exams The [place] [employer] of Obstetricians and Gynecologists recommends that [...] provider about what is best for you. [employer] last reviewed this educational content on 01/27/201719995318-5713 The [employer]. [address] [place] [address]. All rights reserved. This information is not [...] get this muchfrom the food you eat. [employer] last reviewed this educational content on 01/27/201719996584-2108 The [employer]. [address] [place] [address], [place] [address]. All rights reserved. This information is not [...] carcinoma, endocervical adenocarcinoma in situ, or adenocarcinoma.) [employer] last reviewed this educational content on 01/27/201719994755-5796 The [employer]. [address] [place] [address], [place] [address]. All rights reserved. This information is not [...] Laterality Date CHOLECYSTECTOMY at age 16 yrs [place] PELVIC RING FRACTURE UNI/PARAM left pelvic fracture [...] file Gets together: Not on file Attends church service: Not on file Active member of [...] Last Pap was: 12/29/2019 ROR signed for [facility] Results: Neg per pt 6) Have [...] this encounter Miscellaneous Notes Addendum Note - Lynne Dinh WHCNP - 03/13/2020 2:00 PM CDT Addended by: LYNNE HEAD on: 03/13/2020 04:26 PM Modules accepted: Orders documented in this encounter Plan of Treatment Date Type Specialty Care Team Description 03/14/2020 Veterans Adviser Visit [facility], [place] 03/26/2020 Routine Visit [facility] Faculty, Marvin corona [facility] Name Type Priority Associated Diagnoses Date/Ti me [...] on patient's age to complete [facility] documented as of this encounter Procedures Procedure Name Priority Date/Time Associated Diagnosis Comme nts POCT URINALYSIS W/O Routine 03/13/2020 3:00 Supervision of hi gh Results for this SPECIFIC GRAVITY PM CDT risk , procedur e are in antepartum the results section. POCT TEST Routine 03/13/2020 3:00 Supervision of hi gh Results for this PM CDT risk [...] T ype Group Dates MEDICAID MEDICAID PENDING 2020-Pres [address] [place] [address] [place] [address] (Home) [place] [address] documented as of this encounter Advance Directives Name Relationship Healthcare Agent Relationship Co mmunication Nancy Vela Mother Health Care Agent [phone] ( Mobile) Rachel Vela Sibling [facility]
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
--- OUTSIDE RECORDS SUMMARY | 2020-05-03 04:02 | XMS REPORT | Summary of Care ---
:1985 Author Organization [facility] Address [address] [place] [address] Care Team Providers Name Role Phone [facility]oki Dinh [facility] Primary Care Provider Reason for Visit Reason Comments LAB Encounter Details Date Type Department Care Team Description 03/14/2020 Travel Director Visit [facility]- Edin Dinh, [facility] [address] [place] [address] Supervision of high risk in se cond trimester; [facility], [facility] Supervision of high risk , ante [address] [place] [address] Allergies Active Allergy Reactions Severity [...] OB Satellites Faculty, Ang Rmch p Mfm Name Type Priority Associated Diagnoses Date/Ti me Glucose 1 Hour Post LAB Routine Supervision of high r isk 03/14/2020 3:22 PM CDT Prandial , antepartum Health Maintenance Due Date Last Done Comments VARICELLA VACCINES (1 of 2 - 1986 2-dose childhood series) DTaP,Tdap,and Td Vaccines (1 2004 - Tdap) PAP SMEAR 09/11/2019 09/10/2016 INFLUENZA VACCINE (#1) 2020 Depression Screening 03/13/2021 03/13/2020, 03/13/2020 PNEUMOCOCCAL 0-64 YEARS Aged Out No longe r eligible based COMBINED SERIES on patient's age to complete this to [facility] documented as of this encounter Results Not on filedocumented in this encounter Visit Diagnoses Diagnosis Supervision of high risk in se cond trimester Unspecified high-risk Supervision of high risk , ante documented in this encounter Insurance Payer Benefit Plan / Subscriber ID Effective Phone Address T ype Group Dates MEDICAID MEDICAID PENDING 2020-[address] Pending [place] [address] (Home) [place] [address] documented as of this encounter Advance Directives Name Relationship Healthcare Agent Relationship Co mmunication Nancy Vela Mother Health Care Agent [phone] ( Mobile) Rachelsukumar Vela Sibling First Alternate Health Care Agen t
--- OUTSIDE RECORDS SUMMARY | 2020-05-03 04:02 | XMS REPORT | Summary of Care ---
:1985 Author Organization [facility] Address [address] [place] [address] Care Team Providers Name Role Phone Koki Dinh Primary Care Provider Reason for Referral (Routine) Status Reason Specialty Diagnoses / Referred By Referred To Procedures Contact Contact New Request Maternal Diagnoses Closed nondisplaced fracture of left acetabulum, unspecified portion of acetabulum, sequela Fabrizio, Medicine Procedures CONSULT/REFERRAL MATERNAL MEDICINE FACULTY/FELLOW Preferred location: SOFIYA Baker [address] [place] [address] Reason for Visit Reason Comments Initial Visit Encounter Details Date Type Department Care Team Description 03/13/2020 Initial [facility]- Henok Dinh vision of high risk , antepartum (Primary Dx); Visit Clayton Telles JERSON Multiparity; [address] in ; [address] Closed nondisplaced fracture of left jose david tabulum, unspecified portion of acetabulum, sequela; [place], [place]ausea/vomiting in ; [address] [place] Multigravida of advanced mat ernal age in second trimester; [phone] [address] Screening for viral disease [phone] Allergies Active Allergy Reactions Severity Noted Date [...] 20s.But the USPSTF does not recommend CBE. [employer] last reviewed this educational content on 03/29/201719996344-5015 The [employer]. [address] [place] [address], [place] [address]. All rights reserved. This information is not [...] can make now to protect your future. [employer] last reviewed this educational content on 05/29/201819992298-3253 The [employer]. [address] [place] [address]. All rights reserved. This information is [...] her child during , childbirth, and . [employer] last reviewed this educational content on 11/27/201819996947-2343 The [employer]. [address] [place] [address]. All rights reserved. This information is not [...] breast self-examination (BSE). These experts include the [place] [employer] and the [place] [employer]ians and Gynecologists. Some experts [...] benign. This means they are not cancer. [employer] last reviewed this educational content on 01/27/201719992826-7421 The [employer]. [address] [place] [address]. All rights reserved. This information is not intended as a substitute for professional medical care. Always follow your healthcare professional's instructions. Patient Education Clinical Breast Exam Many health organizations recommend a yearly clinical breast exam. This exam may be done by a commodities clerk, family healthcare provider, nurse practitioner, nurse cruller maker machine, or specially trained nurse. Yearly breast exams [...] Guidelines for having clinical breast exams The [place] [employer]ians and Gynec[employer] recommends that [...] provider about what is best for you. [employer] last reviewed this educational content on 01/27/201719999113-6522 The [employer]. [address] [place] [address]. All rights reserved. This information is [...] get this muchfrom the food you eat. [employer] last reviewed this educational content on 01/27/201719995866-5486 The [employer]. [address] [place] [address], [place] [address]. All rights reserved. This information is not [...] carcinoma, endocervical adenocarcinoma in situ, or adenocarcinoma.) [employer] last reviewed this educational content on 01/27/201719990161-9612 The [employer]. [address] [place] [address], [place] [address]. All rights reserved. This information is not [...] Laterality Date CHOLECYSTECTOMY at age 16 yrs [place] PELVIC RING FRACTURE UNI/PARAM left pelvic fracture [...] file Gets together: Not on file Attends sabianism service: Not on file Active member of [...] Last Pap was: 12/29/2019 ROR signed for [facility] Results: Neg per pt 6) Have [...] PM CDT Addended by: LYNNE HEAD on: 03/14/2020 02:44 PM Modules accepted: Orders, SmartSet Addendum Note - Karyna Drake - 03/13/2020 2:00 PM CDT Addended by: KARYNA DRAKE on: 03/13/2020 04:30 PM Modules accepted: Orders Addendum Note - Lynne Dinh WHCNP - 03/13/2020 2:00 PM CDT Addended by: LYNNE HEAD on: 03/13/2020 04:26 PM Modules accepted: Orders documented in this encounter Plan of Treatment Date Type Specialty Care Team Description 03/26/2020 Routine Visit OB Satellites Faculty, [facility] p Mfm Name Type Priority Associated Diagnoses Date/Ti me URINE CULTURE LAB Routine Supervision of high risk 4:19 PM CDT , antepartum Name Type Priority Associated Diagnoses Order S chedule POCT URINALYSIS W LAB Routine Supervision of high ris k 20 Occurrences starting SPECIFIC GRAVITY , antepartum until 01/07/2021 URINE CULTURE LAB Routine Supervision of high risk Ex pected: 03/13/2020, , antepartum s: 03/13/2021 Glucose 1 Hour Post LAB Routine Supervision of high r isk Expected: 03/14/2020, Prandial , antepartum s: 03/14/2021 Health Maintenance Due Date Last Done Comments [...] Name Priority Date/Time Associated Diagnosis Comme nts GC & CHLAMYDIA Routine 03/13/2020 4:19 Supervision of high Re sults for this AMPLIFIED ASSAY PM CDT risk , procedure are in antepartum the results section. SARS-COV-2 IGG Routine 03/13/2020 4:10 Screening for viral Re sults for this PM CDT disease procedure are i n the results section. GALV ONLY - SYPHILIS Routine 03/13/2020 4:10 Supervision of h igh Results for this IGG/IGM PM CDT risk , procedure ar e in antepartum the results section. HIV 1/2 AG-AB WITH Routine 03/13/2020 4:10 Supervision of hig h Results for this REFLEX PM CDT risk , procedure ar e in antepartum the results section. HEPATITIS B SURFACE Routine 03/13/2020 4:10 Supervision of hi gh Results for this ANTIGEN PM CDT risk , procedure ar e in antepartum the results section. VZV ANTIBODY SCREEN Routine 03/13/2020 4:10 Supervision of hi gh Results for this PM CDT risk , procedure ar e in antepartum the results section. RUBELLA SCREEN IGG Routine 03/13/2020 4:10 Supervision of hig h Results for this PM CDT risk , procedure ar e in antepartum the results section. CBC WITH DIFF Routine 03/13/2020 4:10 Supervision of high Res ults for this PM CDT risk , procedure ar e in antepartum the results section. GLUCOSE 1 HOUR POST Routine 03/13/2020 4:10 Supervision of hi gh Results for this PRANDIAL PM CDT risk , procedure ar e in antepartum the results section. HB ABO GROUPING Routine 03/13/2020 4:05 Supervision of high R esults for this PM CDT risk , procedure ar e in antepartum the results section. POCT URINALYSIS W/O Routine 03/13/2020 3:00 Supervision of hi gh Results for this SPECIFIC GRAVITY PM CDT risk , procedur e are in antepartum the results section. POCT TEST Routine 03/13/2020 3:00 Supervision of hi gh Results for this PM CDT risk , procedure ar e in antepartum the results section. documented in this encounter Results GC & CHLAMYDIA AMPLIFIED ASSAY (03/13/2020 4:19 PM CDT) Pathologist Sig nature C. trachomatis Nucleic Negative Negative [facility] Acid SERVICES N. gonorrhoeae Nucleic Negative Negative [facility] Acid SERVICES Specimen Urine - Urine, First Catch (First Void) Narrative Performed At Reliable results are dependent on adequate specimen [facility] collection. A positive result obtained from a patient after therap eutic treatment cannot be interpreted as indicating the pres ence of viable organisms. For patients on whom a false po sitive result may have adverse psychosocial impact, retesting is advised. Indeterminate: Unable to generate a valid test result on this specimen. Please submit a new specimen for repe at testing if clinically indicated. Chlamydia trachomatis/Neisseria gonorrhoeae nucleic ac id amplification testing (NAAT) has not been validated fo r medico-legal specimens (sexual abuse in mercedes-pubertal and pre-pubertal children, sexual assault, and legal cases ). Culture for Chlamydia trachomatis and/or Neisseria gonorrhoeae from clinically appropriate sites is the m ethod of choice in these cases. Results from this testing should be interpreted in conjunction with other laboratory and clinical data available to the clinician. For females in general, a urine specimen is a second-l ine option because it is considered less sensitive than a cervical swab for Chlamydia trachomatis and/or Neisser ia gonorrhoeae NAAT. Performing Organization Address [facility] Phone Number [facility] CLIA: [id number] [place] [address] [place] [address] SARS-COV-2 IGG (03/13/2020 4:10 PM CDT) Pathologist [facility] CoV-2 IgG NegativeComment: Negative [facility] Negative result does SERVICES not rule out acute SARS-CoV-2 infection. Clinical correlation as well as molecular diagnostic test are recommended to rule out acute infection if clinically indicated. Specimen Blood Narrative Performed At This test has been approved by FDA for emergency use. [facility] Performing Organization Address [facility] Phone Number [facility] CLIA: [id number] [place] [address] [phone] [address] [facility] Glucose 1 Hour Post Prandial (03/13/2020 4:10 PM CDT) Pathologist Sig nature GLUC 1 HR 96 (L) 120 - 170 mg/dL [facility] Specimen Blood Performing Organization Address [facility] Phone Number [facility] CLIA: [id number] [place] [address] [phone] 301 [facility] VZV ANTIBODY SCREEN (03/13/2020 4:10 PM CDT) Pathologist Sig [facility] VZV IgG antibody Equivocal Negative [facility] Specimen Blood Narrative Performed At Positive - Indicates the patient was exposed to VZV th rough [facility] infection or vaccination. Negative - Indicates the patient could be susceptible to VZV infection. Equivocal - A second specimen should be sent for testi ng. Performing Organization Address City/[facility] Cent[facility]ode Phone Number [facility] CLIA: [id number] [place] [address] [place] [address] GALV ONLY - SYPHILIS IGG/IGM (03/13/2020 4:10 PM CDT) Pathologist Sig [facility] Syphilis IgG/IgM Non-reactive Non-reactive [facility] Specimen Blood - VENOUS Narrative Performed At [facility] Non-reactive - No serologic evidence of T. pallidum infection. Cannot exclude incubating or early syphilis . Submit a second specimen in 2-4 weeks if syphilis is clinically suspected. Equivocal - Further testing to follow. Reactive - Further testing to follow. Performing Organization Address City/[facility] Phone Number [facility] CLIA: [id number] [place] [address] [place] [address] RUBELLA SCREEN (BEVERLY) IGG (03/13/2020 4:10 PM CDT) Pathologist [facility] Rubella screen IgG Positive Negative [facility]IC ES Specimen Blood Narrative Performed At Positive - Indicates the patient was exposed to Rubell a [facility] through infection or vaccination. Negative - Indicates the patient could be susceptible to Rubella infection. Equivocal - A second specimen should be sent. Performing Organization Address City/[facility] Cent[facility]ode Phone Number [facility] CLIA: [id number] [place] [address] [place] [address] HIV 1/2 AG-AB WITH REFLEX (03/13/2020 4:10 PM CDT) Pathologist Sig [facility] HIV 1/2 Ag-Ab with Negative Negative [facility] Reflex SERVICES HIV Semi-quantitative 0.11 [facility] Specimen Blood Narrative Performed At Non-reactive for HIV-1 antigen and HIV-1/HIV-2 antibod ies. [facility] No laboratory evidence of HIV infection. Repeat in 2-4 weeks if acute HIV infection is suspected. Performing Organization Address City/State/Zipcode Phone Number [facility] CLIA: [id number] [place] [address] [place] [address] HEPATITIS B SURFACE ANTIGEN (03/13/2020 4:10 PM CDT) Pathologist Sig nature HBsAg Negative Negative [facility] HBsAg 0.09 [facility] Semi-Quantitative SERVICES Specimen Blood Performing Organization Address City/[facility]/Zipcode Phone Number [facility] CLIA: [id number] [place] [address] [place] [address] CBC WITH DIFF (03/13/2020 4:10 PM CDT) Pathologist Sig nature WBC 5.70 4.30 - 11.10 [facility] 10*3/L SERVICES RBC 3.92 (L) 3.93 - 5.25 [facility] 10*6/L SERVICES HGB 12.2 11.6 - 15.0 [facility] g/dL SERVICES HCT 35.9 35.7 - 45.2 % [facility] MCV 91.6 80.6 - 95.5 fL [facility] MCH 31.1 25.9 - 32.8 pg [facility] MCHC 34.0 31.6 - 35.1 [facility] g/dL SERVICES RDW-SD 39.9 39.0 - 49.9 fL [facility] SERVICES RDW-CV 11.9 (L) 12.0 - 15.5 % [facility] SERVICES PLT 262 166 - 358 [facility] 10*3/L SERVICES MPV 9.1 (L) 9.5 - 12.9 fL [facility] SERVICES NRBC/100 WBC 0.0 0.0 - 10.0 /100 [facility] WBCs SERVICES NRBC x10^3 <0.01 10*3/L [facility] GRAN MAT (NEUT) % 69.1 % [facility] IMM GRAN % 0.40 % [facility] LYMPH % 22.6 % [facility] MONO % 5.3 % [facility] EOS % 2.1 % [facility] BASO % 0.5 % [facility] GRAN MAT x10^3(ANC) 3.94 1.88 - 7.09 [facility] 10*3/uL SERVICES IMM GRAN x10^3 <0.03 0.00 - 0.06 [facility] 10*3/uL SERVICES LYMPH x10^3 1.29 (L) 1.32 - 3.29 [facility] 10*3/uL SERVICES MONO x10^3 0.30 (L) 0.33 - 0.92 [facility] 10*3/uL SERVICES EOS x10^3 0.12 0.03 - 0.39 [facility] 10*3/uL SERVICES BASO x10^3 0.03 0.01 - 0.07 [facility] 10*3/uL SERVICES Specimen Blood Performing Organization Address City/[facility]/Zipcode Phone Number [facility] CLIA: [id number] [place] [address] [place] [address] WORKUP, BLOOD BANK (03/13/2020 4:05 PM CDT) Pathologist Sig nature ABO & RH B POSITIVE LAB Comment: Performed at [facility] - [facility] Blood [place] [address] Toll Free: [phone] CLIA No. [id number] IAT Negative LAB Comment: Performed at [facility] Services - [facility] Blood [place] [address] Toll Free: [phone] CLIA No. [id number] Specimen Blood - VENOUS Performing Organization Address City/[facility]/Zipcode Phone Number BLD LAB POCT URINALYSIS W/O SPECIFIC GRAVITY (03/13/2020 3:00 [...] T ype Group Dates MEDICAID MEDICAID PENDING 2020-[address] [place] [address] (Home) [place] [address] documented as of this encounter Advance Directives Name Relationship Healthcare Agent Relationship Co mmunication Nancy Vela Mother Health Care Agent [phone] ( Mobile) Rachel Dane Sibling First [employer]ate [employer] Care Agen t
--- OUTSIDE RECORDS SUMMARY | 2020-05-03 04:02 | XMS REPORT | Summary of Care ---
:1985 Author Organization [facility] Address [address] [place] [address] Care Team Providers Name Role Phone Koki Dinh 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 Visit [facility]- Edin Dinh, [facility] [address] [place] [address] Supervision of high risk in se cond trimester; [facility], [facility] Supervision of high risk , ante [address] [place] [address] Allergies Active Allergy Reactions Severity [...] on patient's age to complete [facility] to [facility] documented as of this encounter Results Not on filedocumented in this encounter Visit Diagnoses Diagnosis Supervision of high risk in se cond trimester Unspecified high-risk Supervision of high risk , ante documented in this encounter Insurance Payer Benefit Plan / Subscriber ID Effective Phone Address T ype Group Dates MEDICAID MEDICAID PENDING 2020-[address] [place] [address] (Home) [place] [address] documented as of this encounter Advance Directives Name Relationship Healthcare Agent Relationship Co mmunication Nancy Vela Mother Health Care Agent [phone] ( Mobile) Rachel Vela Sibling [facility] A[facility] t
--- OUTSIDE RECORDS SUMMARY | 2020-05-03 04:02 | XMS REPORT | Summary of Care ---
:1985 Author Organization [facility] Address [address] [place] [address] Care Team Providers Name Role Phone Koki Dinh Primary Care Provider Reason for Referral (Routine) Status Reason Specialty Diagnoses / Referred By Referred To Procedures Contact Contact Authorized Pediatric Diagnoses Supervision of high risk , antepartum Akins[place], Genetics Procedures CONSULT GENETICS SOFIYA Bray [address] [phone] (Routine) Status Reason Specialty Diagnoses / Referred By Referred To Procedures Contact Contact Authorized Maternal Diagnoses Supervision of high risk , antepartum Akinsipe, Medicine Procedures CONSULT MATERNAL MEDICINE ULTRASOUND Preferred Location: SOFIYA Baker [address] [id number] Reason for Visit Reason Comments Care Encounter Details Date Type Department Care Team Description 04/23/2020 [facility] Henok vision of high risk , antepartum (Primary Dx); Visit SOFIYA Baker Multiparity; [address] [facility] [address] Multig ravida of advanced maternal age in second trimester; Street ST Susceptible to varicella (non-immune), c urrently ; [place] [address] JOSE ARNOLD [phone] Allergies Active Allergy Reactions Severity Noted Date Comments Erythromycin Unknown - See comments 03/13/2020 documented as of this encounter (statuses as of 04/23/2020) Medications Medication Sig Dispensed Refills Start Date End Date Status omeprazole 20 mg TAKE ONE CAPSULE 0 12/03/2016 Active capsule BY MOUTH EVERY DAY proMETHazine 25 mg Take 1 tablet by 30 tablet 0 03/13/2020 Active tabletIndications: mouth every 6 Nausea/vomiting in (six) hours as needed for Nausea and Vomiting (N/V). documented as of this encounter (statuses as of 04/23/2020) Active Problems Problem Noted Date Susceptible to [...] as of this encounter (statuses as of 04/23/2020) Resolved Problems Problem Noted Date Resolved Date Nausea/vomiting in 03/13/2020 03/25/2020 Well woman exam 09/10/2016 03/13/2020 Screen for STD (sexually transmitted disease) 09/10/2016 03/13/2020 Unspecified symptom associated with female genital organs 03/13/2020 Encounter for other contraceptive management 09/10/2016 03/13/2020 Family planning counseling 09/10/2016 03/13/2020 Morbid obesity, unspecified obesity type [E66.01] 09/10/2016 03/13/2020 documented as of this encounter (statuses as of 04/23/2020) Social History Tobacco Use Types Packs/Day Years [...] been in contact with No / Unsure 04/23/2020 9:07 AM CDT someone who was confirmed or suspected to have Coronavirus / COVID-19? documented as of this encounter Last Filed Vital Signs Vital Sign Reading Time Taken Comments Blood Pressure 120/75 04/23/2020 9:40 AM CDT Pulse 76 04/23/2020 9:40 AM CDT Temperature 36.1 C (97 F) 04/23/2020 9:40 AM CDT Respiratory Rate 16 04/23/2020 9:40 AM CDT Oxygen Saturation - - Inhaled Oxygen Concentration - - Weight 118.2 kg (260 lb 8 oz) 04/23/2020 9:40 AM CDT Height 157.5 cm (5' 2") 04/23/2020 9:40 AM CDT Body Mass Index 47.65 04/23/2020 9:40 AM CDT documented in this encounter Progress Notes Lynne Dinh, WHCNP - 04/23/2020 9:30 AM CDT Chief complaint: Chief Complaint Patient presents with Care HPI CC: Follow Up Visit Lisbet Vela is a 34 year old, , /White female. Patient's last menstrual period was12/17/2019 (within weeks). She is 18w2d with an intrauterine . Her estimated date of delivery is 09/22/2020, by Last Menstrual Period. She has no complaints today. She reports +FM and denies contractions, LOF [...] Laterality Date CHOLECYSTECTOMY at age 16 yrs [place] PELVIC RING FRACTURE UNI/PARAM left pelvic fracture [...] file Gets together: Not on file Attends amish service: Not on file Active member of [...] control/protection: None Comment: last sexual intercourse 12/17/2019 Labs Labs are pending. and [facility] Porter Visit on 03/14/2020 Component Date Value GLUC 1 HR 03/14/2020 107* Initial Visit on 03/13/2020 Component Date Value POCT PREG 03/13/2020 Positive On board controls accept* 03/13/2020 Yes POCT PH U 03/13/2020 7 POCT U LEUK EST 03/13/2020 Trace POCT U NIT 03/13/2020 Neg POCT U PROT 03/13/2020 Trace POCT U GLU 03/13/2020 Neg POCT U KETONE 03/13/2020 None POCT U BLD 03/13/2020 Neg ABO & RH 03/13/2020 B POSITIVE IAT 03/13/2020 Negative WBC 03/13/2020 5.70 RBC 03/13/2020 3.92* HGB 03/13/2020 12.2 HCT 03/13/2020 35.9 MCV 03/13/2020 91.6 MCH 03/13/2020 31.1 MCHC 03/13/2020 34.0 RDW-SD 03/13/2020 39.9 RDW-CV 03/13/2020 11.9* PLT 03/13/2020 262 MPV 03/13/2020 9.1* NRBC/100 WBC 03/13/2020 0.0 NRBC x10^3 03/13/2020 <0.01 GRAN MAT (NEUT) % 03/13/2020 69.1 IMM GRAN % 03/13/2020 0.40 LYMPH % 03/13/2020 22.6 MONO % 03/13/2020 5.3 EOS % 03/13/2020 2.1 BASO % 03/13/2020 0.5 GRAN MAT x10^3(ANC) 03/13/2020 3.94 IMM GRAN x10^3 03/13/2020 <0.03 LYMPH x10^3 03/13/2020 1.29* MONO x10^3 03/13/2020 0.30* EOS x10^3 03/13/2020 0.12 BASO x10^3 03/13/2020 0.03 C. trachomatis Nucleic A* 03/13/2020 Negative N. gonorrhoeae Nucleic A* 03/13/2020 Negative HBsAg 03/13/2020 Negative HBsAg Semi-Quantitative 03/13/2020 0.09 HIV 1/2 Ag-Ab with Reflex 03/13/2020 Negative HIV Semi-quantitative 03/13/2020 0.11 Rubella screen IgG 03/13/2020 Positive Syphilis IgG/IgM 03/13/2020 Non-reactive URINE CULTURE 03/13/2020 10,000 - 100,000 CFU/mL mixed aerobic organisms - suggests endogenous microbial contamination VZV IgG antibody 03/13/2020 Equivocal GLUC 1 HR 03/13/2020 96* CoV-2 IgG 03/13/2020 Negative Radiology Radiology pending. Allergies Lisbet is allergic to erythromycin. Medications Lisbet has a current medication list which includes the following prescription(s): promethazine and omeprazole. Review of Systems Constitutional: Negative. HENT: Negative. Eyes: Negative. Respiratory: Negative. Breasts: Negative. Cardiovascular: Negative. Gastrointestinal: Negative. Genitourinary: Negative. Musculoskeletal: Negative. Skin: Negative. Neurological: Negative. Psychiatric/Behavioral: Negative. Endocrine: Endocrine negative BP 120/75 (BP Location: Right arm, Patient Position: Sitting, BP CUFF SIZE: Adult Large) | Pulse 76 | Temp 36.1 C (97 F) (Oral) | Resp 16 | Ht 5' 2" (1.575 m) | Wt 260 lb 8 oz (118.2 kg) | LMP 12/17/2019 (Within Weeks) | BMI 47.65 kg/m Pregravid BMI: Could not be calculated Physical Exam PHYSICAL: General Exam: Neurological: Normal Abdomen: Normal gravid Extremities: Normal Pelvic Exam: Uterus: 20 Weeks Assessment/Plan Return to clinic in 4 weeks. Denies zika virus risk, signs and symptoms such as fever,rash,joint pain, conjunctivitis (red eyes),muscle pain, headaches; outside [place] travel to areas affected by zika, and FOB exposure to zika. Educated on use of mosquito repellent. Supervision of high risk , antepartum (primary encounter diagnosis) Multiparity Multigravida of advanced maternal age in second trimester Comment: routine Plan: POCT URINALYSIS W SPECIFIC GRAVITY, QUAD SCRN, CONSULT MATERNAL MEDICINE ULTRASOUND Preferred Location: [place], CONSULT GENETICS Susceptible to varicella (non-immune), currently Comment: no mgmt today Plan: address pp Obesity in Comment: see bmi Plan: BMI discussed, appropriate weight gain, sensible diet, and exercise, increased fiber and waterintake and protein low in fat. Encouraged exercise for 30 min everyday; begin regimen with caution to prevent injury. Encouraged to decrease BMI to <25. Educated on how obesity and smoking can affect future and health. Educated on the effects of chronic health problems, tobacco use, and mental health on future pregnancies and/or group home health. This visit did not involve counseling and coordination that comprised more than 50% of the visit time. SOFIYA Marie 04/23/2020 10:09 AM documented in this encounter Plan of Treatment Date Type Specialty Care Team Description 04/25/2020 [facility] Visit Maternal Medicine 05/02/2020 Telemedicine Visit [facility] Gurmeet Henderson MD [address] [facility] [address] [address] [place] [address] Consults, Mfm Tangela Pn Genetics 05/21/2020 Routine Visit [facility] Albin Dinh WHCNP [address], [place] [address] [phone] Name Type Priority Associated Diagnoses Date/Ti me QUAD SCRN LAB Routine Supervision of high risk pre gnancy, 04/23/2020 10:09 AM CDT antepartum Health Maintenance Due Date Last Done Comments VARICELLA VACCINES (1 of 2 - 1986 2-dose childhood series) DTaP,Tdap,and Td Vaccines (1 2004 - Tdap) PAP SMEAR 09/11/2019 09/10/2016 INFLUENZA VACCINE (#1) 2020 Depression Screening 03/13/2021 03/13/2020, 03/13/2020 PNEUMOCOCCAL 0-64 YEARS Aged Out No longe r eligible based COMBINED SERIES on patient's age to complete this to [facility] documented as of this encounter Procedures Procedure Name Priority Date/Time Associated Diagnosis Comme nts POCT URINALYSIS Routine 04/23/2020 9:41 AM Supervision of [facility] Results for this CDT risk , procedure ar e in antepartum the results section. documented in this encounter Results POCT URINALYSIS W SPECIFIC GRAVITY (04/23/2020 9:41 AM CDT) Pathologist Sig nature POCT U SP GRAV . 1.005 - 1.025 mg/dl POCT PH U . 5 - 8 mg/dl POCT U LEUK EST . Negative - Negative POCT U NIT . Negative - Negative POCT U PROT Trace Negative - Negative POCT U GLU Neg Negative - Negative POCT U KETONE . Negative - Negative POCT U UROBILI . 0.2 - 1 mg/dl POCT U BILI . Negative - Negative POCT U BLD . Negative - Negative POCT U COLOR POCT U APPEAR Specimen Urine - URINE, CLEAN CATCH documented in this encounter Visit Diagnoses Diagnosis Supervision of high risk , ante - Primary Multiparity Multigravida of advanced maternal age in second trimester Susceptible to varicella (non-immune), c urrently Supervision of other high-risk Obesity in Obesity complicating , childbir th, or the puerperium, unspecified as to episode of care or not applicable documented in this encounter Insurance Payer Benefit Plan / Subscriber ID Effective Phone Address T [facility] [id number] 2020-Pres [address] Medic aid HEALTH CHOICE - HEALTH CHOICE ent [id number] 1 MANAGED MEDICAID [place], [place] MED[place] [phone] (Home) [place] [address] documented as of this encounter Advance Directives Name Relationship Healthcare Agent Relationship Co mmunication Nancy Vela Mother Health Care Agent [phone] ( Mobile) Rachel Vela Sibling First Alternate Health Care Agen t
--- OUTSIDE RECORDS SUMMARY | 2020-05-03 04:03 | XMS REPORT | Summary of Care ---
:1985 Author Organization [facility] Address [address] [place] [address] Care Team Providers Name Role Phone Koki Dinh [facility] Primary Care Provider Reason for Visit Reason Comments ULTRASOUND (Routine) Status Reason Specialty Diagnoses / Referred By Referred To Procedures Contact Contact Authorized Maternal Diagnoses Supervision of high risk , antepartum [place], Medicine Procedures CONSULT MATERNAL MEDICINE ULTRASOUND Preferred Location: [place] Lynne Telles, [facility] [address] [place] [address] Encounter Details Date Type Department Care Team Description 04/27/2020 Campus Administrator Visit [facility] Women's Charity Khalil MD [address] [facility] [id number] [place] [address] Supervision of high-risk of el judie multigravida; [address] Us Room Supervision of high risk in se cond trimester; [facility] Clinics Encounter for screening for risk of pre-term labor [address] [place] [address] Allergies Active Allergy Reactions Severity Noted Date Comments Erythromycin Unknown - See comments 03/13/2020 documented as of this encounter (statuses as of 04/27/2020) Medications Medication Sig Dispensed Refills Start Date End Date Status omeprazole 20 mg TAKE ONE CAPSULE 0 12/03/2016 Active capsule BY MOUTH EVERY DAY proMETHazine 25 mg Take 1 tablet by 30 tablet 0 03/13/2020 Active tabletIndications: mouth every 6 Nausea/vomiting in (six) hours as needed for Nausea and Vomiting (N/V). documented as of this encounter (statuses as of 04/27/2020) Active Problems Problem Noted Date Susceptible to [...] as of this encounter (statuses as of 04/27/2020) Resolved Problems Problem Noted Date Resolved Date Nausea/vomiting in 03/13/2020 03/25/2020 Well woman exam 09/10/2016 03/13/2020 Screen for STD (sexually transmitted disease) 09/10/2016 03/13/2020 Unspecified symptom associated with female genital organs 03/13/2020 Encounter for other contraceptive management 09/10/2016 03/13/2020 Family planning counseling 09/10/2016 03/13/2020 Morbid obesity, unspecified obesity type [E66.01] 09/10/2016 03/13/2020 documented as of this encounter (statuses as of 04/27/2020) Social History Tobacco Use Types Packs/Day Years [...] been in contact with No / Unsure 04/27/2020 8:47 AM CDT someone who was confirmed or suspected to have Coronavirus / COVID-19? documented as of this encounter Last Filed Vital Signs Not on filedocumented in this encounter Plan of Treatment Date Type Specialty Care Team Description 05/02/2020 Telemedicine Visit [facility] Gurmeet Henderson MD [address] [facility] [address] [place] [address] Consults, Mfm Tangela Pn Genetics 05/21/2020 Routine Visit [facility]ell[facility] Albin Dinh, WHCNP [address] [place], [place] [address] [phone] Health Maintenance Due Date Last Done Comments VARICELLA VACCINES (1 of 2 - 1986 2-dose childhood series) DTaP,Tdap,and Td Vaccines (1 2004 - Tdap) PAP SMEAR 09/11/2019 09/10/2016 INFLUENZA VACCINE (#1) 2020 Depression Screening 03/13/2021 03/13/2020, 03/13/2020 PNEUMOCOCCAL 0-64 YEARS Aged Out No longe r eligible based COMBINED SERIES on patient's age to complete this to psychiatric documented as of this encounter Results Not on filedocumented in this encounter Visit Diagnoses Diagnosis Supervision of high-risk of el judie multigravida Supervision of high risk in se cond trimester Unspecified high-risk Encounter for screening for risk of pre- term labor documented in this encounter Insurance Payer Benefit Plan / Subscriber ID Effective Phone Address T [facility] [id number] 2020-Pres [address] Medic aid HEALTH CHOICE - HEALTH CHOICE ent [id number] 1 MANAGED MEDICAID [place], [place] [phone] documented as of this encounter Advance Directives Name Relationship Healthcare Agent Relationship Co mmunication Nancy Vela Mother Health Care Agent [phone] ( Mobile) Rachelsukumar Vela S[facility]ling [facility]
--- OUTSIDE RECORDS SUMMARY | 2020-05-03 04:03 | XMS REPORT | Summary of Care ---
:1985 Author Organization [facility] Address [address] [place] [address] Care Team Providers Name Role Phone Koki Dinh [facility] Primary Care Provider Encounter Details Date Type Department Care Team Description 05/01/2020 [facility] Lyn[facility] Chase C, [address] [place] [address] [address] [facility] [phone] [facility] [place] [address] Allergies Active Allergy Reactions Severity Noted Date Comments Erythromycin Unknown - See comments 03/13/2020 documented as of this encounter (statuses as of 05/01/2020) Medications Medication Sig Dispensed Refills Start Date End Date Status omeprazole 20 mg TAKE ONE CAPSULE 0 12/03/2016 Active capsule BY MOUTH EVERY DAY proMETHazine 25 mg Take 1 tablet by 30 tablet 0 03/13/2020 Active tabletIndications: mouth every 6 Nausea/vomiting in (six) hours as needed for Nausea and Vomiting (N/V). documented as of this encounter (statuses as of 05/01/2020) Active Problems Problem Noted Date Susceptible to [...] as of this encounter (statuses as of 05/01/2020) Resolved Problems Problem Noted Date Resolved Date Nausea/vomiting in 03/13/2020 03/25/2020 Well woman exam 09/10/2016 03/13/2020 Screen for STD (sexually transmitted disease) 09/10/2016 03/13/2020 Unspecified symptom associated with female genital organs 03/13/2020 Encounter for other contraceptive management 09/10/2016 03/13/2020 Family planning counseling 09/10/2016 03/13/2020 Morbid obesity, unspecified obesity type [E66.01] 09/10/2016 03/13/2020 documented as of this encounter (statuses as of 05/01/2020) Social History Tobacco Use Types Packs/Day Years [...] Telemedicine Visit [facility]ell[facility] Gurmeet Henderson MD [address] [facility] [address] [place], [place] [address] Consults, Mfm Tangela Pn Genetics 05/21/2020 Routine Visit [facility] [address] [place], [place] [address] [phone] 05/28/2020 Childbirth And Infant Care Teacher Visit Maternal 5, [facility] Us Medicine Room Health Maintenance Due Date Last Done Comments VARICELLA VACCINES (1 of 2 - 1986 2-dose childhood series) DTaP,Tdap,and Td Vaccines (1 2004 - Tdap) PAP SMEAR 09/11/2019 09/10/2016 INFLUENZA VACCINE (#1) 2020 Depression Screening 03/13/2021 03/13/2020, 03/13/2020 PNEUMOCOCCAL 0-64 YEARS Aged Out No longe r eligible based COMBINED SERIES on patient's age to complete this to [facility] documented as of this encounter Results Not on filedocumented in this encounter Insurance Payer Benefit Plan / Subscriber ID Effective Phone Address T [facility] [id number] 2020-Pres [address] Medic aid HEALTH CHOICE - HEALTH CHOICE ent [id number] 1 MANAGED MEDICAID [place], [place]ID [phone] documented as of this encounter Advance Directives Name Relationship Healthcare Agent Relationship Co mmunication Nancy Vela Mother Health Care Agent [phone] ( Mobile) Rachel Vela Sibling First Alternate Health Care Agen t
[2020-05-03] MEDS ORDERED: ACETAMINOPHEN 500 MG TAB ONE (04:49)
[2020-05-03 05:16] LABS: Absolute Lymphocytes (CBC) 1.7 K/uL (0.7-4.9); Basophils % 0.3 % (0-1.3); Hematocrit 32.2 % (36.0-45.0); Lymphocytes % 20.5 % (15.3-44.8); MPV 6.9 fL (7.6-11.3); RBC Red Blood Cell Count 3.62 M/uL (3.86-4.86)
[2020-05-03 05:43] LABS: BUN Blood Urea Nitrogen 7 mg/dL (7-18); Bicarbonate 26 mmol/L (21-32); Glucose Level 85 mg/dL (74-106); HCG, Quantitative 15680 mIU/mL (1-3); Potassium 3.5 mmol/L (3.5-5.1); Sodium Level 140 mmol/L (136-145)
[2020-05-03 05:44] LABS: Protime INR 1.03
[2020-05-03 06:18] LABS: Urine Blood NEGATIVE (NEG); Urine Glucose NEGATIVE (NEG); Urine Protein NEGATIVE (NEG); Urine Specific Gravity 1.015 (1.005-1.030)
--- NOTE | 2020-05-03 07:43 | ER ---
Nurse's Notes [facility] Name: Lisbet Vela Age: 34 yrs Sex: Female : 1985 Arrival Date: 05/03/2020 Time: 03:58 Bed 2 Private MD: Diagnosis: Other slipping, tripping and stumbling and falls;Left flank pain;Normal 20 wk 5 d IUP Presentation: 05/03 04:03 Chief complaint: EMS states: Pt reports she was getting in her vehicle lost her footing ea and fell. Pt reports she landed on her left side and left hip. Reports she is 5 months and wants to make sure she is ok. Coronavirus screen: At this time, the client does not indicate any symptoms associated with coronavirus-19. Ebola Screen: No symptoms or risks identified at this time. Initial Sepsis Screen: Does the patient meet any 2 criteria? No. Patient's initial sepsis screen is negative. Does the patient have a suspected source of infection? No. Patient's initial sepsis screen is negative. Risk Assessment: Do you want to hurt yourself or someone else? Patient reports no desire to harm self or others. Onset of symptoms was May 03, 2020. 04:03 Method Of Arrival: EMS: [facility] ea 04:03 Acuity: ARGENIS 3 ea Triage Assessment: 04:11 General: Appears in no apparent distress. Behavior is appropriate for age. Pain: ea Complains of pain in left hip. 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 - Social history:: Smoking status: Patient denies any tobacco usage or history of. Screenin:09 Abuse screen: Denies threats or abuse. Nutritional screening: No deficits noted. ea Tuberculosis screening: No symptoms or risk factors identified. Fall Risk Fall in past 12 months (25 points). Assessment: 04:11 General: Appears in no apparent distress. Behavior is appropriate for age. Pain: ea Complains of pain in left hip. Neuro: Level of Consciousness is awake, alert, obeys commands, Oriented to person, place, time. Cardiovascular: Patient's skin is warm and dry. Respiratory: Airway is patent Respiratory effort is even, unlabored, Respiratory pattern is regular, symmetrical. Derm: Skin is pink, warm \T\ dry. 06:13 Reassessment: Patient and/or family updated on plan of care and expected duration. Pain ea level reassessed. Patient is alert, oriented x 3, equal unlabored respirations, skin warm/dry/pink. Awaiting for ultrasound. 07:00 Reassessment: RECD REPORT FROM DEVORA ROLON. 34YO HF S/P FALL, 5 MONTH GESTATION. U/S bp PENDING. 07:24 Reassessment: U/S AT B/S. bp 07:54 Reassessment: PT D/C HOME, FAMILY TRANSPORT PENDING. bp Vital Signs: 04:03 BP 122 / 74; Pulse 71; Resp 18; Temp 98; Pulse Ox 100% on R/A; Weight 117.93 kg; Height ea 5 ft. 2 in. (157.48 cm); 06:30 BP 92 / 51; Pulse 64; Resp 19; Pulse Ox 99% ; rr5 07:30 BP 98 / 56; Pulse 64; Resp 17; Pulse Ox 97% ; bp 04:03 Body Mass Index 47.55 (117.93 kg, 157.48 cm) ea Vitals: 05:12 Heart Tones 153 bpm. rr5 ED Course: 03:58 Patient arrived in ED. cl3 04:03 Dariana Friend, GONZALES is Primary Nurse. ea 04:09 Charlie Diallo MD is Attending Physician. [facility] 04:09 Triage completed. ea 04:10 Arm band placed on right wrist. Patient placed in an exam room, on a stretcher, on ea pulse oximetry. 04:10 Patient has correct armband on for positive identification. Bed in low position. Call ea light in reach. Side rails up X 1. 05:00 Inserted saline lock: 20 gauge in left forearm, using aseptic technique. Blood rr5 collected. 07:12 Attending Physician role handed off by Charlie Diallo MD kdr 07:12 Mak Macias MD is Attending Physician. kdr 07:32 Abdomen Exam Limited In Process Unspecified. EDMS 07:32 US OB Limited In Process Unspecified. EDMS 07:54 No provider procedures requiring assistance completed. IV discontinued, intact, bp bleeding controlled, No redness/swelling at site. Pressure dressing applied. Administered Medications: 05:00 Drug: Tylenol 1000 mg Route: PO; rr5 06:00 Follow up: Response: No adverse reaction rr5 Outcome: 07:42 Discharge ordered by . kdr 07:54 Discharged to home via wheelchair, with family. bp 07:54 Condition: stable 07:54 Discharge instructions given to patient, Instructed on discharge instructions, follow up and referral plans. Demonstrated understanding of instructions, follow-up care. 07:55 Patient left the ED. bp Signatures: Dispatcher [employer] EDMS Mak Macias MD MD kdr Dariana Friend RN RN ea Peltier, Brian, RN RN bp Roque, Raymond, RN RN rr5 Kari Hurt cl3 Charlie Diallo MD MD [id number]
--- NOTE | 2020-05-03 07:43 | EDPHYS ---
Physician Documentation [facility] Name: Lisbet Vela Age: 34 yrs Sex: Female : 1985 Arrival Date: 05/03/2020 Time: 03:58 Bed 2 Private MD: ED Physician Mak Macias HPI: 05/03 04:48 This 34 yrs old Female presents to ER via EMS with complaints of Fall Injury. mh7 04:48 Details of fall: The patient fell from a height, while climbing, primarily sliding. mh7 04:48 Details of fall: The patient fell and struck a grass-covered surface. Onset: The mh7 symptoms/episode began/occurred today. 04:49 Associated injuries: The patient sustained injury to the abdomen, specifically the mh7 anterior aspect of left lateral abdomen, contusion, tenderness, left hip, contusion. Severity of symptoms: At their worst the symptoms were moderate, earlier today, in the emergency department the symptoms are unchanged. 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 - Social history:: Smoking status: Patient denies any tobacco usage or history of. ROS: 04:49 Constitutional: Negative for fever, chills, and weight loss, Eyes: Negative for injury, mh7 pain, redness, and discharge, ENT: Negative for injury, pain, and discharge, Neck: Negative for injury, pain, and swelling, Cardiovascular: Negative for chest pain, palpitations, and edema, Respiratory: Negative for shortness of breath, cough, wheezing, and pleuritic chest pain, : Negative for injury, bleeding, discharge, and swelling, Skin: Negative for injury, rash, and discoloration, Neuro: Negative for headache, weakness, numbness, tingling, and seizure, Psych: Negative for depression, anxiety, suicide ideation, homicidal ideation, and hallucinations, Allergy/Immunology: Negative for hives, rash, and allergies, Endocrine: Negative for neck swelling, polydipsia, polyuria, polyphagia, and marked weight changes, Hematologic/Lymphatic: Negative for swollen nodes, abnormal bleeding, and unusual bruising. Exam: 04:49 Constitutional: This is a well developed, well nourished patient who is awake, alert, mh7 and in no acute distress. Head/Face: Normocephalic, atraumatic. Eyes: Pupils equal round and reactive to light, extra-ocular motions intact. Lids and lashes normal. Conjunctiva and sclera are non-icteric and not injected. Cornea within normal limits. Periorbital areas with no swelling, redness, or edema. Neck: Trachea midline, no thyromegaly or masses palpated, and no cervical lymphadenopathy. Supple, full range of motion without nuchal rigidity, or vertebral point tenderness. No Meningismus. Chest/axilla: Normal chest wall appearance and motion. Nontender with no deformity. No lesions are appreciated. Cardiovascular: Regular rate and rhythm with a normal S1 and S2. No gallops, murmurs, or rubs. Normal PMI, no JVD. No pulse deficits. Respiratory: Lungs have equal breath sounds bilaterally, clear to auscultation and percussion. No rales, rhonchi or wheezes noted. No increased work of breathing, no retractions or nasal flaring. 04:49 Back: No spinal tenderness. No costovertebral tenderness. Full range of motion. Skin: Warm, dry with normal turgor. Normal color with no rashes, no lesions, and no evidence of cellulitis. MS/ Extremity: Pulses equal, no cyanosis. Neurovascular intact. Full, normal range of motion. Neuro: Awake and alert, GCS 15, oriented to person, place, time, and situation. Cranial nerves II-XII grossly intact. Motor strength 5/5 in all extremities. Sensory grossly intact. Cerebellar exam normal. Normal gait. 04:49 Abdomen/GI: Inspection: abdomen appears normal, obese Bowel sounds: normal, in all quadrants, Palpation: mild abdominal tenderness, in the anterior aspect of left lateral abdomen, Rectal exam: the exam is deferred, because of patient request, Indicators: McBurney's point is not tender, Vega's sign is negative, Rovsing's sign is negative, Obturator sign is negative, Psoas sign is negative, Liver: no appreciated palpable abnormalities, Hernia: not appreciated. Vital Signs: 04:03 BP 122 / 74; Pulse 71; Resp 18; Temp 98; Pulse Ox 100% on R/A; Weight 117.93 kg; Height ea 5 ft. 2 in. (157.48 cm); 06:30 BP 92 / 51; Pulse 64; Resp 19; Pulse Ox 99% ; rr5 07:30 BP 98 / 56; Pulse 64; Resp 17; Pulse Ox 97% ; bp 04:03 Body Mass Index 47.55 (117.93 kg, 157.48 cm) ea MDM: 04:34 Patient medically screened. [facility] 07:40 Data reviewed: vital signs, lab test result(s), radiologic studies. Counseling: I had a kdr detailed discussion with the patient and/or guardian regarding: the historical points, exam findings, and any diagnostic results supporting the discharge/admit diagnosis, lab results, radiology results, the need for outpatient follow up. ED course: 20 wk 5 d IUP HR 132. Cervix closed and no bleeding o/w no bleeding. 05/03 04:37 Order name: Basic Metabolic Panel; Complete Time: 06:14 [facility] 05/03 04:37 Order name: CBC with Diff; Complete Time: 06:14 [facility] 05/03 04:37 Order name: Type And Screen; Complete Time: 06:14 [facility] 05/03 04:37 Order name: Quantitative Hcg; Complete Time: 06:14 [facility] 05/03 04:37 Order name: Protime (+inr); Complete Time: 06:14 [facility] 05/03 04:37 Order name: Ptt, Activated; Complete Time: 06:14 [facility] 05/03 04:37 Order name: Labs collected and sent; Complete Time: 05:00 [facility] 05/03 04:37 Order name: Urine Dipstick-Ancillary (obtain specimen); Complete Time: 05:00 [facility] 05/03 04:58 Order name: Urine --Ancillary (enter results); Complete Time: 07:01 tt3 05/03 04:58 Order name: Urine Dipstick--Ancillary (enter results); Complete Time: 07:01 tt3 05/03 07:09 Order name: Abdomen Exam Limited [facility] 05/03 07:13 Order name: US OB Limited [facility] 05/03 04:37 Order name: Urine Test (obtain specimen); Complete Time: 05:00 [facility] 05/03 04:37 Order name: Heart Tones; Complete Time: 05:06 7 Administered Medications: 05:00 Drug: Tylenol 1000 mg Route: PO; rr5 06:00 Follow up: Response: No adverse reaction rr5 Disposition: 05/03/20 07:42 Discharged to Home. Impression: Other slipping, tripping and stumbling and falls, Left flank pain, Normal 20 wk 5 d IUP. - Condition is Stable. - Discharge Instructions: Fall Prevention in the Home, [id number], Abdominal Pain During , [id number], Flank Pain, [id number]. - Medication Reconciliation Form, Thank You Letter form. - Follow up: Private Physician; When: 2 - 3 days; Reason: If symptoms return, Further diagnostic work-up, Recheck today's complaints, Continuance of care, Re-evaluation by your physician. - Problem is new. - Symptoms have improved. Signatures: Dispatcher [employer] [facility] Mak Macias MD MD kdr Dariana Friend RN Osorio Marshall ea, RN RN bp Roque, Raymond, RN RN rr5 Charlie Diallo MD MD 7 Corrections: (The following items were deleted from the chart) 07:09 07:01 Abdomen Complete+US.RAD.BRZ ordered. [facility] 07:55 07:42 05/03/2020 07:42 Discharged to Home. Impression: Other slipping, tripping and bp stumbling and falls; Left flank pain; Normal 20 wk 5 d IUP. Condition is Stable. Forms are Medication Reconciliation Form, Thank You Letter, Antibiotic Education, Prescription Opioid Use. Follow up: Private Physician; When: 2 - 3 days; Reason: If symptoms return, Further diagnostic work-up, Recheck today's complaints, Continuance of care, Re-evaluation by your physician. Problem is new. Symptoms have improved. kdr
--- NOTE | 2020-05-03 08:02 | RAD REPORT ---
EXAM DESCRIPTION: US - Abdomen Exam Limited - 05/03/2020 7:32 am CLINICAL HISTORY: Abdominal pain status post trauma FINDINGS: Ultrasound does not reveal ascites within the abdomen nor pelvis IMPRESSION: Negative for ascites. This does not exclude an intra abdominal injury
--- NOTE | 2020-05-03 08:08 | RAD REPORT ---
EXAM DESCRIPTION: US - OB Limited - 05/03/2020 7:32 am CLINICAL HISTORY: with trauma and abdominal pain COMPARISON: None FINDINGS: A limited ultrasound was performed to assess for viability and placenta A myometrial contraction was visualized Single live intrauterine in variable presentation The placenta is anterior. It is low lying. Subchorionic/retroplacental bleed is not seen. Cervix is normal caliber. It contains a mucus plug. Amniotic fluid within normal limits. Cardiac activity 132 beats per minute length 3.5 centimeters 20 weeks 5 days IMPRESSION: Limited OB ultrasound performed Estimated gestational age of 20 weeks 5 days ANGELIQUE 09/15/2020 No retroplacental/subchorionic bleed Low lying placenta Mucus plug within the cervix
[2020-05-03 08:19] VITALS: TEMP 98
[2020-05-03 08:27] VITALS: BP 98/56; O2SAT 97
== END 2020-05-03 07:55 | disposition home or self-care (01) ==
LOC: ER 03:58
DX: O26.892 Other specified pregnancy related conditions, second trimester (principal); W17.89XA Other fall from one level to another, initial encounter; Y93.89 Activity, other specified; Z3A.20 20 weeks gestation of pregnancy; Y92.9 Unspecified place or not applicable; Z88.3 Allergy status to other anti-infective agents; Z88.5 Allergy status to narcotic agent
CPT/HCPCS: 36415; 76705; 76815; 80048; 81003; 81025; 84702; 85025; 85610; 85730; 86850; 86900; 86901; 99284

== ENCOUNTER 2021-12-02 13:54 | Emergency (ER) | payer OTHER ==
--- OUTSIDE RECORDS SUMMARY | 2021-12-02 14:00 | XMS REPORT | Continuity of Care Document ---
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 CAPSULE BY ity of capsule 00:00: MOUTH [place] 00 EVERY DAY Medical Branch omeprazole 2016-0 Yes TAKE ONE Uni vers 20 mg 6-07 CAPSULE BY ity of capsule 00:00: MOUTH [place] 00 EVERY DAY Medical Branch omeprazole 2016-0 Yes TAKE ONE Uni vers 20 mg 6-07 CAPSULE BY ity of capsule 00:00: MOUTH [place] 00 EVERY DAY Medical Branch omeprazole 2017-0 Yes TAKE ONE Uni vers 20 mg 6-07 CAPSULE BY ity of capsule 00:00: MOUTH [place] 00 EVERY DAY Medical Branch omeprazole 2016-0 Yes TAKE ONE Uni vers 20 mg 6-07 CAPSULE BY ity of capsule 00:00: MOUTH [place] 00 EVERY DAY Medical Branch omeprazole 2017-0 Yes TAKE ONE Uni vers 20 mg 6-07 CAPSULE BY ity of capsule 00:00: MOUTH [place] 00 EVERY DAY Medical Branch omeprazole 2017-0 Yes TAKE ONE Uni vers 20 mg 6-07 CAPSULE BY ity of capsule 00:00: MOUTH [place] 00 EVERY DAY Medical Branch omeprazole 2017-0 Yes TAKE ONE Uni vers 20 mg 6-07 CAPSULE BY ity of capsule 00:00: MOUTH [place] 00 EVERY DAY Medical Branch omeprazole 2017-0 Yes TAKE ONE Uni vers 20 mg 6-07 CAPSULE BY ity of capsule 00:00: MOUTH [place] 00 EVERY DAY Medical Branch omeprazole 2017-0 Yes TAKE ONE Uni vers 20 mg 6-07 CAPSULE BY ity of capsule 00:00: MOUTH [place] 00 EVERY DAY Medical Branch omeprazole 2017-0 Yes TAKE ONE Uni vers 20 mg 6-07 CAPSULE BY ity of capsule 00:00: MOUTH [place] 00 EVERY DAY Medical Branch omeprazole 2017-0 Yes TAKE ONE Uni vers 20 mg 6-07 CAPSULE BY ity of capsule 00:00: MOUTH [place] 00 EVERY DAY Medical Branch omeprazole 2017-0 Yes TAKE ONE Uni vers 20 mg 6-07 CAPSULE BY ity of capsule 00:00: MOUTH [place] 00 EVERY DAY Medical Branch omeprazole 2016-0 Yes TAKE ONE Uni vers 20 mg 6-07 CAPSULE BY ity of capsule 00:00: MOUTH [place] 00 EVERY DAY Medical Branch omeprazole 2016-0 Yes TAKE ONE Uni vers 20 mg 6-07 CAPSULE BY ity of capsule 00:00: MOUTH [place] 00 EVERY DAY Medical Branch omeprazole 2017-0 Yes TAKE ONE Uni vers 20 mg 6-07 CAPSULE BY ity of capsule 00:00: MOUTH [place] 00 EVERY DAY Medical Branch omeprazole 2016-0 Yes TAKE ONE Uni vers 20 mg 6-07 CAPSULE BY ity of capsule 00:00: MOUTH [place] 00 EVERY DAY Medical Branch omeprazole 2017-0 Yes TAKE ONE Uni vers 20 mg 6-07 CAPSULE BY ity of capsule 00:00: MOUTH [place] 00 EVERY DAY Medical Branch omeprazole 2017-0 Yes TAKE ONE Uni vers 20 mg 6-07 CAPSULE BY ity of capsule 00:00: MOUTH [place] 00 EVERY DAY Medical Branch omeprazole 2017-0 Yes TAKE ONE Uni vers 20 mg 6-07 CAPSULE BY ity of capsule 00:00: MOUTH [place] 00 EVERY DAY Medical Branch omeprazole 2017-0 Yes TAKE ONE Uni vers 20 mg 6-07 CAPSULE BY ity of capsule 00:00: MOUTH [place] 00 EVERY DAY Medical Branch omeprazole 2017-0 Yes TAKE ONE Uni vers 20 mg 6-07 CAPSULE BY ity of capsule 00:00: MOUTH [place] 00 EVERY DAY Medical Branch omeprazole 2017-0 Yes TAKE ONE Uni vers 20 mg 6-07 CAPSULE BY ity of capsule 00:00: MOUTH [place] 00 EVERY DAY Medical Branch omeprazole 2017-0 Yes TAKE ONE Uni vers 20 mg 6-07 CAPSULE BY ity of capsule 00:00: MOUTH [place] 00 EVERY DAY Medical Branch omeprazole 2017-0 Yes TAKE ONE Uni vers 20 mg 6-07 CAPSULE BY ity of capsule 00:00: MOUTH [place] 00 EVERY DAY Medical Branch omeprazole 2017-0 Yes TAKE ONE Uni vers 20 mg 6-07 CAPSULE BY ity of capsule 00:00: MOUTH [place] 00 EVERY DAY Medical Branch omeprazole 2017-0 Yes TAKE ONE Uni vers 20 mg 6-07 CAPSULE BY ity of capsule 00:00: MOUTH [place] 00 EVERY DAY Medical Branch omeprazole 2017-0 Yes TAKE ONE Uni vers 20 mg 6-07 CAPSULE BY ity of capsule 00:00: MOUTH [place] 00 EVERY DAY Medical Branch omeprazole 2017-0 Yes TAKE ONE Uni vers 20 mg 6-07 CAPSULE BY ity of capsule 00:00: MOUTH [place] 00 EVERY DAY Medical Branch omeprazole 2017-0 Yes TAKE ONE Uni vers 20 mg 6-07 CAPSULE BY ity of capsule 00:00: MOUTH [place] 00 EVERY DAY Medical Branch omeprazole 2017-0 Yes TAKE ONE Uni vers 20 mg 6-07 CAPSULE BY ity of capsule 00:00: MOUTH [place] 00 EVERY DAY Medical Branch omeprazole 2017-0 Yes TAKE ONE Uni vers 20 mg 6-07 CAPSULE BY ity of capsule 00:00: MOUTH [place] 00 EVERY DAY Medical Branch omeprazole 2017-0 Yes TAKE ONE Uni vers 20 mg 6-07 CAPSULE BY ity of capsule 00:00: MOUTH [place] 00 EVERY DAY Medical Branch omeprazole 2017-0 Yes TAKE ONE Uni vers 20 mg 6-07 CAPSULE BY ity of capsule 00:00: MOUTH [place] 00 EVERY DAY Medical Branch omeprazole 2017-0 Yes TAKE ONE Uni vers 20 mg 6-07 CAPSULE BY ity of capsule 00:00: MOUTH [place] 00 EVERY DAY Medical Branch omeprazole 2017-0 Yes TAKE ONE Uni vers 20 mg 6-07 CAPSULE BY ity of capsule 00:00: MOUTH [place] 00 EVERY DAY Medical Branch omeprazole 2017-0 Yes TAKE ONE Uni vers 20 mg 6-07 CAPSULE BY ity of capsule 00:00: MOUTH [place] 00 EVERY DAY Medical Branch omeprazole 2017-0 Yes TAKE ONE Uni vers 20 mg 6-07 CAPSULE BY ity of capsule 00:00: MOUTH [place] 00 EVERY DAY Medical Branch omeprazole 2017-0 Yes TAKE ONE Uni vers 20 mg 6-07 CAPSULE BY ity of capsule 00:00: MOUTH [place] 00 EVERY DAY Medical Branch omeprazole 2017-0 Yes TAKE ONE Uni vers 20 mg 6-07 CAPSULE BY ity of capsule 00:00: MOUTH [place] EVERY DAY Medical Branch omeprazole 2016-0 Yes TAKE ONE Uni vers 20 mg 6-07 CAPSULE BY ity of capsule 00:00: MOUTH [place] EVERY DAY Medical Branch omeprazole 2016-0 Yes TAKE ONE Uni vers 20 mg 6-07 CAPSULE BY ity of capsule 00:00: MOUTH [place] EVERY DAY Medical Branch Immunizations Ordered Filled Immunization Date Status Comments [facility] Immunization Name Name TDAP 2020-06-27 Completed University of 00:00:00 [facility] TDAP 2020-06-27 Completed University of 00:00:00 [facility] TDAP 2020-06-27 Completed University of 00:00:00 [facility] TDAP 2020-06-27 Completed University of 00:00:00 [facility] TDAP 2020-06-27 Completed University of 00:00:00 [facility] TDAP 2020-06-27 Completed University of 00:00:00 [facility] TDAP 2020-06-27 Completed University of 00:00:00 [facility] TDAP 2020-06-27 Completed University of 00:00:00 [facility] TDAP 2020-06-27 Completed University of 00:00:00 [facility] TDAP 2020-06-27 Completed University of 00:00:00 [facility] TDAP 2020-06-27 Completed University of 00:00:00 [facility] TDAP 2020-06-27 Completed University of 00:00:00 [facility] TDAP 2020-06-27 Completed University of 00:00:00 [facility] TDAP 2020-06-27 Completed University of 00:00:00 [facility] TDAP 2020-06-27 Completed University of 00:00:00 [facility] TDAP 2020-06-27 Completed University of 00:00:00 [facility] TDAP 2020-06-27 Completed University of 00:00:00 [facility] TDAP 2020-06-27 Completed University of 00:00:00 [facility] Vital Signs Vital Name Observation Time Observation Value Comments Source Systolic blood 2020-09-08 01:30:00 121 mm[Hg] Univer sity of pressure [facility] Diastolic blood 2020-09-08 01:30:00 77 mm[Hg] Unive rsity of pressure [facility] Heart rate 2020-09-08 01:30:00 73 /min [facility] [place] [facility] Body temperature 2020-09-08 01:30:00 36.67 Monserrat [facility] [place] [facility] Respiratory rate 2020-09-08 01:30:00 18 /min [facility] [place] [facility] Oxygen saturation in 2020-09-07 13:10:00 98 /min University of Arterial blood by [facility] Pulse oximetry Branch Body height 2020-09-06 17:39:00 157.5 cm [facility] [place] [facility] Body weight 2020-09-06 17:39:00 127.007 kg [facility] [place] [facility] BMI 2020-09-06 17:39:00 51.21 kg/m2 [facility] [place] [facility] Systolic blood 2020-08-30 16:58:00 111 mm[Hg] Univer sity of pressure [place] [facility] Diastolic blood 2020-08-30 16:58:00 71 mm[Hg] Unive rsity of pressure [place] [facility] Heart rate 2020-08-30 16:58:00 72 /min [facility] [place] [facility] Body temperature 2020-08-30 16:58:00 36.39 Monserrat [facility] [place] [facility] Respiratory rate 2020-08-30 16:58:00 16 /min [facility] [place] [facility] Body height 2020-08-30 16:58:00 157.5 cm [facility] [place] [facility] Body weight 2020-08-30 16:58:00 130.381 kg [facility] [place] [facility] BMI 2020-08-30 16:58:00 52.57 kg/m2 [facility] [place] [facility] Systolic blood 2020-08-21 19:41:00 107 mm[Hg] Univer sity of pressure [place] [facility] Diastolic blood 2020-08-21 19:41:00 67 mm[Hg] Unive rsity of pressure [place] [facility] Heart rate 2020-08-21 19:41:00 73 /min [facility] [place] [facility] Body temperature 2020-08-21 19:41:00 36.5 [place]at [facility] [place] [facility] Respiratory rate 2020-08-21 19:41:00 16 /min [facility] [place] [facility] Body height 2020-08-21 19:41:00 157.5 cm [facility] [place] [facility] Body weight 2020-08-21 19:41:00 127.659 kg [facility] [place] [facility] BMI 2020-08-21 19:41:00 51.48 kg/m2 [facility] [place] [facility] Systolic blood 2020-08-07 22:01:00 110 mm[Hg] Univer sity of pressure [place] [facility] Diastolic blood 2020-08-07 22:01:00 65 mm[Hg] Unive rsity of pressure [place] [facility] Heart rate 2020-08-07 22:01:00 70 /min [facility] [place] [facility] Body temperature 2020-08-07 22:01:00 36.5 [place]at [facility] [place] [facility] Respiratory rate 2020-08-07 22:01:00 16 /min [facility] [place] [facility] Body height 2020-08-07 22:01:00 157.5 cm [facility] [place] [facility] Body weight 2020-08-07 22:01:00 129.53 kg [facility] [place] [facility] BMI 2020-08-07 22:01:00 52.23 kg/m2 [facility] [place] [facility] Systolic blood 2020-06-27 22:02:00 98 mm[Hg] Univer sity of pressure [place] [facility] Diastolic blood 2020-06-27 22:02:00 63 mm[Hg] Unive rsity of pressure [place] [facility] Heart rate 2020-06-27 22:02:00 80 /min [facility] [place] [facility] Body temperature 2020-06-27 22:02:00 36.22 [place]at [facility] [place] [facility] Respiratory rate 2020-06-27 22:02:00 16 /min [facility] [place] [facility] Body height 2020-06-27 22:02:00 157.5 cm [facility] [place] [facility] Body weight 2020-06-27 22:02:00 123.86 kg [facility] [place] [facility] BMI 2020-06-27 22:02:00 49.94 kg/m2 [facility] [place] [facility] Systolic blood 2020-06-01 19:15:00 109 mm[Hg] Univer sity of pressure [place] [facility] Diastolic blood 2020-06-01 19:15:00 72 mm[Hg] Unive rsity of pressure [place] [facility] Heart rate 2020-06-01 19:15:00 73 /min [facility] [place] [facility] Body temperature 2020-06-01 19:15:00 36.17 [place]at [facility] [place] [facility] Respiratory rate 2020-06-01 19:15:00 16 /min [facility] [place] [facility] Body height 2020-06-01 19:15:00 157.5 cm [facility] [place] [facility] Body weight 2020-06-01 19:15:00 121.621 kg [facility] [place] [facility] BMI 2020-06-01 19:15:00 49.04 kg/m2 [facility] [place] [facility] Systolic blood 2020-04-23 14:40:00 120 mm[Hg] [facility]ity [facility] pressure [place] [facility] Diastolic blood 2020-04-23 14:40:00 75 mm[Hg] Unive rsity of pressure [place] [facility] Heart rate 2020-04-23 14:40:00 76 /min [facility] [place] [facility] Body temperature 2020-04-23 14:40:00 36.11 [place]at [facility] [place] [facility] Respiratory rate 2020-04-23 14:40:00 16 /min [facility] [place] [facility] Body height 2020-04-23 14:40:00 157.5 cm [facility] [place] [facility] Body weight 2020-04-23 14:40:00 118.162 kg [facility] [place] [facility] BMI 2020-04-23 14:40:00 47.65 kg/m2 [facility] [place] [facility] Systolic blood 2020-04-23 14:40:00 120 mm[Hg] Univer [facility]ity of pressure [place] [facility] Diastolic blood 2020-04-23 14:40:00 75 mm[Hg] Unive rsity of pressure [place] [facility] Heart rate 2020-04-23 14:40:00 76 /min [facility] [place] [facility] Body temperature 2020-04-23 14:40:00 36.11 [place]at [facility] [place] [facility] Respiratory rate 2020-04-23 14:40:00 16 /min [facility] [place] [facility] Body height 2020-04-23 14:40:00 157.5 cm [facility] [place] [facility] Body weight 2020-04-23 14:40:00 118.162 kg [facility] [place] [facility] BMI 2020-04-23 14:40:00 47.65 kg/m2 [facility] [place] [facility] Systolic blood 2020-04-09 18:54:00 109 mm[Hg] Univer sity of pressure [place] [facility] Diastolic blood 2020-04-09 18:54:00 69 mm[Hg] Unive rsity of pressure [place] [facility] Heart rate 2020-04-09 18:54:00 60 /min [facility] [place] [facility] Body temperature 2020-04-09 18:54:00 36.5 [place]at [facility] [place] [facility] Respiratory rate 2020-04-09 18:54:00 16 /min [facility] [place] [facility] Body height 2020-04-09 18:54:00 157.5 cm [facility] [place] [facility] Body weight 2020-04-09 18:54:00 115.837 kg [facility] [place] [facility] BMI 2020-04-09 18:54:00 46.71 kg/m2 [facility] [place] [facility] Systolic blood 2020-04-09 18:54:00 109 mm[Hg] [facility]iver [facility]ity of pressure [place] [facility] Diastolic blood 2020-04-09 18:54:00 69 mm[Hg] Unive rsity of pressure [place] [facility] Heart rate 2020-04-09 18:54:00 60 /min [facility] [place] [facility] Body temperature 2020-04-09 18:54:00 36.5 [place]at [facility] [place] [facility] Respiratory rate 2020-04-09 18:54:00 16 /min [facility] [place] [facility] Body height 2020-04-09 18:54:00 157.5 cm [facility] [place] [facility] Body weight 2020-04-09 18:54:00 115.837 kg [facility] [place] [facility] BMI 2020-04-09 18:54:00 46.71 kg/m2 [facility] [place] [facility] Systolic blood 2020-03-13 20:09:00 101 mm[Hg] Univer sity of pressure [place] [facility] Diastolic blood 2020-03-13 20:09:00 72 mm[Hg] Unive rsity of pressure [place] [facility] Heart rate 2020-03-13 20:09:00 61 /min [facility] [place] [facility] Body temperature 2020-03-13 20:09:00 36 Monserrat [facility] [place] [facility] Respiratory rate 2020-03-13 20:09:00 16 /min [facility] Body height 2020-03-13 20:09:00 157.5 cm [facility] Body weight 2020-03-13 20:09:00 94.15 kg [facility] BMI 2020-03-13 20:09:00 37.96 kg/m2 [facility] Procedures Procedure Date / Time Performing Clinician Source Performed ADC OR FE ONLY - 2020-09-07 22:22:00 Adum, Sushila Chamorro [facility] RPR [facility] Branch CBC WITH DIFF 2020-09-07 09:26:00 Adum, Sushila Pedro Pablo [facility] VENOUS CORD GAS 2020-09-06 23:13:00 Adum, Sushila Pedro Pablo [facility] HB ABO GROUPING 2020-09-06 13:15:00 Adum, Sushila Pedro Pablo [facility] CBC WITH DIFF 2020-09-06 13:14:00 Adum, Sushila L [facility] HEPATITIS B SURFACE 2020-09-06 13:14:00 Adum, Sushila Chamorro [facility] ANTIGEN [facility] HIV 1/2 AG-AB WITH 2020-09-06 13:14:00 Adum, Sushila Chamorro [facility] REFLEX [facility] ADC ONLY - FERN TEST 2020-09-06 11:58:00 Adum, Sushila Chamorro [facility] COVID-19 (ID NOW RAPID 2020-09-06 11:51:00 Adum, Sushila Chamorro [facility] TESTING) Medical Branch ASSIGNMENT OF BENEFITS 2020-09-06 11:28:48 Doctor Unassigned, No [facility] NOTICE OF PRIVACY 2020-09-06 11:26:23 [facility] PRACTICES Name Medical Branch CONSENT/REFUSAL FOR 2020-09-06 11:26:05 [facility] Name [facility] Branch CONSENT/REFUSAL FOR 2020-09-06 11:26:04 Doctor Unassigned, No [facility] POCT URINALYSIS 2020-08-30 19:09:00 Lynne Dinh [facility] POCT URINALYSIS 2020-08-21 19:44:00 Lynne Dinh [facility] CBC WITH DIFF 2020-08-21 19:40:00 Lynne Dinh [facility] SARS-COV-2 IGG 2020-08-21 19:40:00 Lynne Dinh [facility] POCT URINALYSIS 2020-06-27 22:18:00 Lynne Dinh [facility] TDAP VACCINE, >11 YRS, 2020-06-27 21:51:58 Lynne Dinh [facility] AUTHORIZATION TO RELEASE 2020-06-15 06:01:00 Doctor Unassigned, No [facility] PHI TO [facility] POCT URINALYSIS 2020-06-01 19:20:00 Lynne Dinh [facility] SECOND AND THIRD 2020-04-27 13:11:00 Lynne Dinh [facility] TRIMESTER ULTRASOUND Medical [facility] GUN TESTER CLINIC ULTRASOUND 2020-04-27 05:01:00 Doctor Unassigned, No [facility] POCT URINALYSIS 2020-04-23 14:41:00 Lynne Dinh [facility] GC & CHLAMYDIA AMPLIFIED 2020-03-13 21:19:00 Lynne Dinh [facility] GLUCOSE 1 HOUR POST 2020-03-13 21:10:00 Lynne Dinh [facility] CBC WITH DIFF 2020-03-13 21:10:00 Lynne Dinh [facility] RUBELLA SCREEN IGG 2020-03-13 21:10:00 Lynne Dinh [facility] VZV ANTIBODY SCREEN 2020-03-13 21:10:[address] [facility] HEPATITIS B SURFACE 2020-03-13 21:10:00 Lynne Dinh [facility] HIV 1/2 AG-AB WITH 2020-03-13 21:10:00 Lynne Dinh [facility] GALV ONLY - SYPHILIS 2020-03-13 21:10:00 [facility] IGG/IGM [facility] SARS-COV-2 IGG 2020-03-13 21:10:00 Lynne Dinh [facility] HB ABO GROUPING 2020-03-13 21:05:00 Lynne Dinh [facility] POCT TEST 2020-03-13 20:00:[address] [facility] POCT URINALYSIS W/O 2020-03-13 20:00:00 Lynne iDnh [facility] SPECIFIC GRAVITY [facility] ASSIGNMENT OF BENEFITS 2020-03-13 19:07:48 Doctor Unassigned, No [facility] [U] XRAY PELVIS MIN 3 2018-11-15 00:00:00 [id number] [U] XRAY PELVIS MIN 3 2018-10-08 00:00:00 [facility] [id number] Encounters Start End Encounter Admission Attending Care Care Encounter Source Date/Time Date/Time Type Type Clinicians Facility Department ID 2021-04-28 Outpatient P [facility] RICHARD [id number] [facility] 2020-10-09 Telephone Fabrizio [facility] [id number] Univers 00:00:00 00:00:00 Lynne Telles GUN TESTER [id number] ity [facility] [id number] Wale as MATERNAL [id number] Med ical & CHILD [address] [place] [address] 2020-10-08 2020-10-08 Outpatient R FABRIZIO [facility] [id number] Univers 09:30:00 09:30:00 LYNNE [id number] ity o f [facility] 2020-10-08 2020-10-08 Outpatient R FABRIZIO [facility] [id number] Univers 09:30:00 09:30:00 LYNNE ity o f [facility] 2020-09-102020-09-10 Telephone [facility] [id number] Univers 00:00:00 00:00:00 Lynne Telles GUN TESTER [id number] [facility] [id number] [place]ale as MATERNAL [id number] [facility] [address] [place] [address] 2020-09-06 2020-09-08 Hospital [facility] [id number] Univers 05:26:00 09:50:00 Encounter Sushila Arnold [id number] ity of [place] [id number] [place] [facility] [id number] [facility] [address] [place] 2020-09-06 2020-09-06 Orders Doctor GLENDY [id number] Univers 00:00:00 00:00:00 Only Unassigned, JAMES [id number] ity of [place] [facility] [id number] Wale as [id number] [facility] [address] [place] 2020-08-30 2020-08-30 Routine [facility] [id number] Univers 10:46:35 11:15:40 Lynne Telles GUN TESTER [id number] [facility] [id number] [place] as MATERNAL [id number] [facility] & CHILD [address] [place] [address] 2020-08-30 2020-08-30 Outpatient R AKINSIPE, [facility] [id number] Univers 10:45:00 10:45:00 LYNNE [id number] ity o [facility] 2020-08-30 2020-08-30 Outpatient R AKINSIPE, [facility] [id number] Univers 10:45:00 10:45:00 LYNNE ity o [facility] 2020-08-28 2020-08-28 Outpatient R AKINSIPE, [facility] [id number] Univers 15:00:00 15:00:00 LYNNE [id number] ity o [facility] 2020-08-28 2020-08-28 [facility] [id number] Univers 15:00:00 15:00:00 LYNNENICKOLAS curtis [facility] 2020-08-27 2020-08-27 Abstract Fabrizio [facility] [id number] Univers 00:00:00 00:00:00 Lynne C GUN TESTER [id number] ity of REGIONAL [id number] [place] as MATERNAL [id number] [facility] [address] [place] [address] 2020-08-24 2020-08-24 Outpatient R [facility] [id number] Univers 14:30:00 14:30:00 [id number] ity of [facility] 2020-08-24 2020-08-24 [facility] [id number] Univers 14:30:00 14:30:00 LYNNE curtis [facility] 2020-08-24 2020-08-24 [facility] [id number]. [id number] Univers 07:55:46 08:10:46 Only Joel Dinhnickolas Telles GUN TESTER [id number] 10 ity of REGIONAL [id number] [place] as MATERNAL [id number] [facility] & CHILD [address] [place] [address] 2020-08-23 2020-08-23 Telephone Fabrizio [facility] [id number] Univers 00:00:00 00:00:00 Lynne C GUN TESTER [id number] ity of REGIONAL [id number] [place] as MATERNAL [id number] [facility] [address] [place] [address] 2020-08-22 2020-08-22 Fws Faculty Assistant [facility] 1.2 .[id number] Univers 15:20:40 15:50:40 Visit Ki Boykin GUN TESTER [id number] ity of REGIONAL [id number] [place] as MATERNAL [id number] [facility] ical & CHILD [address] [place] [address] 2020-08-22 2020-08-22 Outpatient R [facility] [id number] Univers 15:15:00 15:15:00 [id number] ity of [facility] 2020-08-22 2020-08-22 Outpatient R [facility] [id number] Univers 15:15:00 15:15:00 ity of [facility] 2020-08-22 2020-08-22 [facility] [id number] Univers 00:00:00 00:00:00 Lynne C GUN TESTER [id number] ity of REGIONAL [id number] [place] as MATERNAL [id number] [facility] ical & CHILD [address] [place] [address] 2020-08-21 2020-08-21 Routine Akinpe, [facility] [id number] Univers 13:16:09 14:23:26 Lynne C GUN TESTER [id number] ity of Visit REGIONAL [id number] [place] as MATERNAL [id number] [facility] [address] [place] [address] 2020-08-21 2020-08-21 Outpatient R AKINSIPE, [facility] [id number] Univers 13:15:00 13:15:00 LYNNE [id number] ity o [facility] 2020-08-21 2020-08-21 Outpatient R [facility]INFORMERLY [facility], [facility] [id number] Univers 13:15:00 13:15:00 LYNNE ity o [facility] 2020-08-07 2020-08-07 Routine Akinsipe, [facility] [id number] Univers 15:44:41 16:28:06 Lynne C GUN TESTER 350.1.13.10 ity of Visit REGIONAL 4.2.7.2.686 Wale as MATERNAL [id number] [facility] & [address] 2020-08-07 2020-08-07 Outpatient R AKINSIPE, [facility] [id number] 2Q-20 Univers 15:45:00 15:45:00 LYNNE [id number] ity o f [facility] 2020-08-07 2020-08-07 Outpatient R AKINSIPE, [facility] [id number] Univers 15:45:00 15:45:00 LYNNE [facility] 2020-08-01 2020-08-01 Outpatient R AKINSIPE, [facility] [id number] 2Q-20 Univers 08:30:00 08:30:00 LYNNE [id number] [facility] 2020-08-01 2020-08-01 Outpatient R AKINSIPE, [facility] [id number] Univers 08:30:00 08:30:00 LYNNE [facility] 2020-07-30 2020-07-30 Outpatient R AKINSIPE, [facility] [id number] 2Q-20 Univers 14:30:00 14:30:00 LYNNE [id number] [facility] 2020-07-30 2020-07-30 Outpatient R AKINSIPE, [facility] [id number] Univers 14:30:00 14:30:00 LYNNE [facility] 2020-07-12 2020-07-12 Outpatient R AKINSIPE, [facility] [id number] 2Q-20 Univers 10:45:00 10:45:00 LYNNE [id number] [facility] 2020-07-12 2020-07-12 Outpatient R AKINSIPE, [facility] [id number] Univers 10:45:00 10:45:00 LYNNE [facility] 2020-06-28 2020-06-28 [facility] 1.2.840.114 [id number] Univers 00:00:00 00:00:00 Lynne Telles GUN TESTER 350.1.13.10 ity of REGIONAL 4.2.7.2.686 [place] as MATERNAL [id number] [facility] [address] [place] [address] 2020-06-27 2020-06-27 Routine Akinsipe, [facility] 1.2.617.621 [id number] Univers 15:46:33 16:28:54 Lynne Telles GUN TESTER 350.1.13.10 ity of Visit REGIONAL 4.2.7.2.686 [place] as MATERNAL [id number] Med ical & CHILD 107 [facility] 2020-06-27 2020-06-27 Fws Faculty Assistant Ultrasound, Alverto [facility] 1.2 .840.114 [id number] Univers 15:13:22 15:43:22 Visit Francois Weber GUN TESTER 350.1.13.10 ity [facility] 4.2.7.2.686 Wale as MATERNAL [id number] [facility] ical & CHILD 369 [facility] 2020-06-27 2020-06-27 Outpatient R [facility] [id number] -[id number] Univers 15:00:00 15:00:00 ity [facility] 2020-06-27 2020-06-27 Outpatient P [facility] [id number] Univers 15:00:00 [facility]00[facility] 2020-06-18 Outpatient R AKINSIPE, [facility] [id number] 2Q-20 Univers 14:00:00 14:00:00 LYNNE [id number] ity o f [facility] 2020-06-18 2020-06-18 Outpatient R AKINSIPE, [facility] [id number] Univers 14:00:00 14:00:00 LYNNE ity o [facility] 2020-06-15 2020-06-15 Outpatient R AKINSIPE, [facility] [id number] 2Q-20 Univers 09:00:00 09:00:00 LYNNE [id number] ity o f [facility] 2020-06-15 2020-06-15 Outpatient R AKINSIPE, [facility] [id number] Univers 09:00:00 09:00:00 LYNNE ity o [facility] 2020-06-15 2020-06-15 Orders Doctor PIKE 1.2.840.114 [id number] Univers 00:00:00 00:00:00 Only Unassigned, JAMES 350.1.13.10 ity of [facility] 4.2.7.2.686 Wale as [id number] [address] 2020-06-04 2020-06-04 Outpatient R [facility] [id number] -[id number] Univers 08:15:00 08:15:00 ity [facility] 2020-06-04 2020-06-04 Outpatient R AKINSIPE, [facility] [id number] Univers 08:15:00 08:15:00 LYNNE ity o [facility] 2020-06-01 2020-06-01 Routine Akinsipe, [facility] 1.2.885.449 [id number] Univers 12:57:12 13:40:52 Lynne C GUN TESTER 350.1.13.10 ity of Visit REGIONAL 4.2.7.2.686 [place]ale as MATERNAL [id number] [facility] ical & CHILD [address] [place] [address] 2020-06-01 2020-06-01 Outpatient R AKINSIPE, [facility] [id number] 2Q-20 Univers 12:45:00 12:45:00 LYNNE ity o [facility] 2020-06-01 2020-06-01 Outpatient R AKINSIPE, [facility] [id number] Univers 12:45:00 12:45:00 LYNNE ity o [facility] 2020-05-30 2020-05-30 Outpatient R AKINSIPE, [facility] [id number] 2Q-20 Univers 13:00:00 13:00:00 LYNNE ity o [facility] 2020-05-30 2020-05-30 Outpatient R AKINSIPE, [facility] [id number] Univers 13:00:00 13:00:00 LYNNE itetienne o [facility] 2020-05-30 2020-05-30 [facility] 1.2.840.114 [id number] Univers 00:00:00 00:00:00 Lynne Telles GUN TESTER 350.1.13.10 ity of REGIONAL 4.2.7.2.686 Wale as MATERNAL [id number] [facility]ILD [address] [place] [address] 2020-05-29 2020-05-29 Fws Faculty Assistant 1, [facility] Us Room UNIVERSIT 1 .2.840.114 [id number] Univers 11:32:08 12:44:56 Visit Alecia Rader [facility] 350.1.13.10 ity of CL[place] [id number] [address] 2020-05-29 2020-05-29 Outpatient P [facility] [id number] -[id number] Univers 11:30:00 11:30:00 ity of [facility] 2020-05-29 2020-05-29 Outpatient P [facility] [id number] Univers 11:30:00 11:30:00 ity of [facility] 2020-05-28 2020-05-28 Outpatient R [facility] [id number] -[id number] Univers 11:30:00 11:30:00 ity [facility] 2020-05-28 2020-05-28 Outpatient P [facility] [id number] Univers 11:30:00 11:30:00 ity [facility] 2020-05-23 2020-05-23 Outpatient R AKINSIPE, [facility] [id number] 2Q-20 Univers 08:15:00 08:15:00 LYNNE [id number] ity o [facility] 2020-05-23 2020-05-23 Outpatient R AKINSIPE, [facility] [id number] Univers 08:15:00 08:15:00 LYNNE carry o f [facility] 2020-05-22 2020-05-22 Abstract [facility] .2.840.114 [id number] Univers 00:00:00 00:00:00 Lynne Telles GUN TESTER 350.1.13.10 ity of REGIONAL 4.2.7.2.686 Wale as MATERNAL [id number] [facility] ical & CHILD [address] [place] [address] 2020-05-21 2020-05-21 Outpatient R AKINSIPE, [facility] [id number] 2Q-20 Univers 10:30:00 10:30:00 LYNNE [id number] ity o f [facility] 2020-05-21 2020-05-21 Outpatient R AKINSIPE, [facility] [id number] Univers 10:30:00 10:30:00 LYNNE ity o f [facility] 2020-05-04 2020-05-04 [facility] 1.2.840.114 [id number] Univers 00:00:00 00:00:00 Concepcion Mcdaniel GUN TESTER 350.1.13.10 it y of REGIONAL 4.2.7.2.686 [place] as MATERNAL [id number] Med ical & CHILD [address] [place] [address] 2020-05-02 2020-05-02 Outpatient [facility] [id number] -[id number] Univers 13:00:00 13:00:00 ity [facility] 2020-05-02 2020-05-02 Outpatient P SHASHA ELENA [facility] [id number] Univers 13:00:00 13:00:00 ity [facility] 2020-05-01 2020-05-01 Abstract [facility] 1.2.840.114 [id number] 00:00:00 00:00:00 Lynne C GUN TESTER 350.1.13.10 REGIONAL 4.2.7.2.686 MATERNAL [id number] & CHILD [address] [place] [address] 2020-05-01 2020-05-01 [facility] 1.2.840.114 [id number] Univers 00:00:00 00:00:00 Lynne C GUN TESTER 350.1.13.[address] [facility] 4.2.7.2.686 Wale as MATERNAL [id number] Med ical & CHILD [address] [place] [address] 2020-04-27 2020-04-27 Fws Faculty Assistant 3, [facility] Room UNIVERSIT 1 .2.840.114 [id number] Univers 08:48:19 10:49:18 Visit Khalil, Speedy Gene Y HEALTH 350.1.13. 10 ity of [facility] [place].2.7.2.[place] [id number] [address] 2020-04-27 2020-04-27 Fws Faculty Assistant 3, [facility] UNIVERSIT 1.2.840.11 [id number] 08:48:19 10:03:19 Visit [facility] Room Y HEALTH 350.1.13.10 CLINICS 4.2.7.2.686 [id number] [facility] 2020-04-27 2020-04-27 Outpatient P [facility] [id number] -[id number] Univers 09:00:00 09:00:00 ity [facility] 2020-04-27 2020-04-27 Outpatient P [facility] [id number] Univers 09:00:00 09:00:00 ity of [facility] 2020-04-27 2020-04-27 Orders Doctor GLENDY 1.2.840.114 [id number] Univers 00:00:00 00:00:00 Only Unassigned, JAMES 350.1.13.10 [facility] 4.2.7.2.686 Wale as [id number] [address] 2020-04-25 2020-04-25 Outpatient R [facility] [id number] -[id number] Univers 08:00:00 08:00:00 [id number] ity [facility] 2020-04-25 2020-04-25 Outpatient P [facility] [id number] Univers 08:00:00 08:00:00 ity [facility] 2020-04-24 2020-04-24 Outpatient R AKINCHAITANYA, [facility] [id number] 2Q-20 Univers 09:00:00 09:00:00 LYNNE [id number] brunoy o [facility] 2020-04-24 2020-04-24 Outpatient R AKINSIPE, [facility] [id number] Univers 09:00:00 09:00:00 LYNNE pierson o [facility] 2020-04-23 2020-04-23 Routine Akinsipe, [facility] 1.2.115.753 [id number] [facility] 09:24:58 10:15:07 Lynne C GUN TESTER 350.1.13.[address] [facility] 4.2.7.2.686 MATERNAL [id number] & CHILD [address] [place] [address] 2020-04-23 2020-04-23 Routine Akinsipe, [facility] 1.2.130.[id number] [place] [address] 09:24:58 10:15:07 Lynne C GUN TESTER 350.1.13.10 ity of Visit REGIONAL 4.2.7.2.686 [place]ale as MATERNAL [id number] Med ical & CHILD [address] [place] [address] 2020-04-23 2020-04-23 Outpatient R AKINSIPE, [facility] [id number] 2Q-20 Univers 09:30:00 09:30:00 LYNNE [id number] brunoy o f [facility] 2020-04-23 2020-04-23 Outpatient R AKINSIPE, [facility] [id number] Univers 09:30:00 09:30:00 LYNNE pierson o f [facility] 2020-04-09 2020-04-09 Routine Faculty, [facility] 1.2.840.114 [id number] 13:36:15 14:26:16 [facility] GUN TESTER 350.1.13.10 Visit [facility] 4.2.7.2.686 MATERNAL [id number] & CHILD [address] [facility] 2020-04-09 2020-04-09 Routine Faculty, [facility] 1.2 .840.114 [id number] Univers 13:36:15 14:26:16 Alecia Rader GUN TESTER 350.1.13.10 ity of Visit REGIONAL 4.2.7.2.686 [place] as MATERNAL [id number] Med ical & CHILD [address] [place] [address] 2020-04-09 2020-04-09 Outpatient R [facility] [id number] -[id number] Univers 13:00:00 13:00:00 [id number] ity [facility] 2020-04-09 2020-04-09 Outpatient R [facility] [id number] Univers 13:00:00 13:00:00 ity [facility] 2020-03-26 2020-03-26 Outpatient R [facility] [id number] Univers 13:30:00 13:30:00 [id number] ity [facility] 2020-03-26 2020-03-26 Outpatient R [facility] [id number] Univers 13:30:00 13:30:[facility] 2020-03-14 2020-03-14 Fws Faculty Assistant Lab, [facility] 1.2.840.114 [id number] 14:32:03 15:22:[address] [facility] GUN TESTER 350.1.13.10 REGIONAL 4.2.7.2.686 MATERNAL [id number] & CHILD [address] [facility] 2020-03-14 2020-03-14 Fws Faculty Assistant [facility], [facility] 1.2.840. 114 [id number] Univers 14:32:03 15:22:32 Visit Lynne Dinh GUN TESTER 350.1.13. 10 ity of REGIONAL 4.2.7.2.686 [place]ale as MATERNAL [id number] [facility] ical & CHILD [address] [place] [address] 2020-03-13 2020-03-14 Initial Fabrizio, [facility] 1.2.814.648 [id number] Univers 14:50:27 14:44:47 Lynne Telles GUN TESTER 350.1.13.[address] [facility] 4.2.7.2.686 Wale as MATERNAL [id number] [facility] & CHILD [address] [place] [address] 2020-03-14 2020-03-14 Outpatient R [facility] [id number] -[id number] Univers 14:00:00 14:00:00 [id number] ity [facility] 2020-03-14 2020-03-14 Outpatient R AKINSIPE, [facility] [id number] Univers 14:00:00 14:00:00 LYNNE pierson o f [facility] 2020-03-14 2020-03-14 Outpatient R [facility] [id number] Univers 09:00:00 09:00:00 ity [facility] 2020-03-13 2020-03-13 Outpatient R AKINSIPE, [facility] [id number] Univers 14:00:00 14:00:00 LYNNE carry o f [facility] 2020-03-13 2020-03-13 Outpatient R [facility] [id number] -[id number] Univers 13:30:00 13:30:00 [id number] [facility] 2020-03-13 2020-03-13 Outpatient R AKINSIPE, [facility] [id number] Univers 13:30:00 13:30:00 LYNNE pierson o f [facility] 2020-03-13 2020-03-13 Orders Doctor PIKE 1.2.840.114 [id number] Univers 00:00:00 00:00:00 Only Unassigned, JAMES 350.1.13.10 ity of [place] [facility] 4.2.7.2.686 Wale as [id number] [address] 2018-11-24 2018-11-24 [facility] [id number] [place] 09:30:00 09:30:00 t; ROBBIE MERRILL Physic i poornima YI NP 2018-10-13 2018-10-13 App[facility]NEY [facility] [id number] [place] 09:30:00 09:30:00 t; ROBBIE MERRILL Physic poornima Doherty NP 2018-09-15 2018-09-15 Appointbib KASSIDYBARNEY [facility] [id number] [place] 11:00:00 11:00:00 t; ROBBIE MERRILL i, ans AMY, NP Results Test Description Test Time Test Comments Results Result Comments Source ADC OR FE ONLY - RPR 2020-09-08 09:09:03 Test Item Value Reference Range Interpretation Comme nts RPR (Qualitative) (test code = 79922-0) Nonreactive Nonreactive Lab Interpretation (test code = 48784-6) Normal [facility] with [id number] 09:36:12 Test Item Value Reference Range Interpretation Comments WBC (test code = See_Comment [Automated 4390-2) message] The sy stem which generated this result transmitted reference range : 4.30 - 11.10 10*3/?L. The reference range was not used to interpret this result as normal/abnormal . RBC (test code = See_Comment L [Automated 199-8) message] The sy stem which generated this result transmitted reference range : 3.93 - 5.25 10*6/?L. The reference range was not used to interpret this result as normal/abnormal . HGB (test code = 10.0 g/dL 11.6-15.0 L 718-7) HCT (test code = 30.5 % 35.7-45.2 L 4544-3) MCV (test code = 87.1 fL 80.6-95.5 787-2) MCH (test code = 28.6 pg 25.9-32.8 785-6) MCHC (test code = 32.8 g/dL 31.6-35.1 786-4) RDW-SD (test code = 44.0 fL 39.0-49.9 92481-5) RDW-CV (test code = 14.0 % 12.0-15.5 788-0) PLT (test code = See_Comment [Automated 777-3) message] The sy stem which generated this result transmitted reference range : 166 - 358 10*3/ ?L. The reference r dustin was not used to interpret this result as normal/abnormal . MPV (test code = 8.7 fL 9.5-12.9 L 44400-1) NRBC/100 WBC (test See_Comment [Automat ed code = 4785461668) message] The system which generated this result transmitted reference range : 0.0 - 10.0 /100 WBCs. The refer ence range was not u sed to interpret th is result as normal/abnormal . NRBC x10^3 (test code <0.01 See_Comment [Auto mated = 5927431716) message] The s ystem which generated this result transmitted reference range : 10*3/?L. The reference range was not used to interpret this result as normal/abnormal . GRAN MAT (NEUT) % 79.3 % (test code = 770-8) IMM GRAN % (test code 0.50 % = 9285060865) LYMPH % (test code = 14.2 % 736-9) MONO % (test code = 4.9 % 5905-5) EOS % (test code = 1.0 % 713-8) BASO % (test code = 0.1 % 706-2) GRAN MAT x10^3(ANC) 7.89 10*3/uL 1.88-7.09 H (test code = 1318545748) IMM GRAN x10^3 (test 0.05 10*3/uL 0.00-0.06 code = 2233612932) LYMPH x10^3 (test code 1.41 10*3/uL 1.32-3.29 = 731-0) MONO x10^3 (test code 0.49 10*3/uL 0.33-0.92 = 742-7) EOS x10^3 (test code = 0.10 10*3/uL 0.03-0.39 711-2) BASO x10^3 (test code <0.03 0.01-0.07 = 704-7) Lab Interpretation Abnormal (test code = 32310-8) [facility] CORD [id number] 23:25:36 Test Item Value Reference Range Interpretation Comments VENOUS BASE EXCESS, mEq/L CORD (test code = 6216199432) VENOUS PH, CORD (test 7.25-7.45 code = 2066782546) VENOUS PC02, CORD See_Comment [Automate d message] The (test code = system which ge nerated 5998589337) this result tra nsmitted reference range : 27 - 49 mmHg. The refer ence range was not used to interpret this result as normal/abnormal . VENOUS PO2, CORD (test See_Comment [Aut omated message] The code = 0817911788) system wh ich generated this result tra nsmitted reference range : 17 - 41 mmHg. The refer ence range was not used to interpret this result as normal/abnormal . VENOUS BICARBONATE, See_Comment [Automa mayito message] The CORD (test code = system whi ch generated 9107960150) this result tra nsmitted reference range : 12 - 29 mEq/L. The refe rence range was not used to interpret this result as normal/abnormal . [facility] Surface [id number] 16:58:31 Test Item Value Reference Range Interpretation Comments HBsAg Semi-Quantitative (test code = Negative Negative 5195-3) [facility]2 AG-AB WITH [id number] 14:47:15 Test Item Value Reference Range Interpretation Comments HIV Negative Negative Semi-quantitative (test code = 87810-2) ZOE (test code = Non-reactive for HIV-1 ZOE) antigen and HIV-1/HIV-2 antibodies. ?No laboratory evidence of HIV infection. ?Repeat in 2-4 weeks if acute HIV infection is suspected. [facility] Center[facility] and Screen - ONCE [id number] 14:21:06 Test Item Value Reference Range Interpretation Comments ABO & RH (test code B Positive Performe d at [facility] = 20) Laboratory [facility] [address] [place], [place] [address]Toll Free: [phone] A No. [id number] IAT (test code = Negative Performed a t [facility] 1185) Laboratory [facility] [address] [place], [place] [address]Toll Free: [phone] A No. [id number] [facility] Center[facility] with [id number] 13:28:10 Test Item Value Reference Range Interpretation Comments WBC (test code = See_Comment [Automated 6690-2) message] The sy stem which generated this result transmitted reference range : 4.30 - 11.10 10*3/?L. The reference range was not used to interpret this result as normal/abnormal . RBC (test code = See_Comment L [Automated 789-8) message] The sy stem which generated this result transmitted reference range : 3.93 - 5.25 10*6/?L. The reference range was not used to interpret this result as normal/abnormal . HGB (test code = 10.0 g/dL 11.6-15.0 L 718-7) HCT (test code = 30.5 % 35.7-45.2 L 4544-3) MCV (test code = 86.2 fL 80.6-95.5 787-2) MCH (test code = 28.2 pg 25.9-32.8 785-6) MCHC (test code = 32.8 g/dL 31.6-35.1 786-4) RDW-SD (test code = 42.7 fL 39.0-49.9 41162-0) RDW-CV (test code = 13.7 % 12.0-15.5 788-0) PLT (test code = See_Comment [Automated 777-3) message] The sy stem which generated this result transmitted reference range : 166 - 358 10*3/ ?L. The reference r dustin was not used to interpret this result as normal/abnormal . MPV (test code = 8.8 fL 9.5-12.9 L 71274-9) NRBC/100 WBC (test See_Comment [Automat ed code = 6958183866) message] The system which generated this result transmitted reference range : 0.0 - 10.0 /100 WBCs. The refer ence range was not u sed to interpret th is result as normal/abnormal . NRBC x10^3 (test code <0.01 See_Comment [Auto mated = 3705773828) message] The s ystem which generated this result transmitted reference range : 10*3/?L. The reference range was not used to interpret this result as normal/abnormal . GRAN MAT (NEUT) % 76.0 % (test code = 770-8) IMM GRAN % (test code 0.70 % = 7104587287) LYMPH % (test code = 16.5 % 736-9) MONO % (test code = 5.5 % 5905-5) EOS % (test code = 1.1 % 713-8) BASO % (test code = 0.2 % 706-2) GRAN MAT x10^3(ANC) 6.39 10*3/uL 1.88-7.09 (test code = 4352574780) IMM GRAN x10^3 (test 0.06 10*3/uL 0.00-0.06 code = 4076192564) LYMPH x10^3 (test code 1.39 10*3/uL 1.32-3.29 = 731-0) MONO x10^3 (test code 0.46 10*3/uL 0.33-0.92 = 742-7) EOS x10^3 (test code = 0.09 10*3/uL 0.03-0.39 711-2) BASO x10^3 (test code <0.03 0.01-0.07 = 704-7) Lab Interpretation Abnormal (test code = 55330-3) [facility] Center[facility]OVID-[facility] (ID NOW RAPID TESTING)2020-09-06 12:56:26 Test Item Value Reference Range Interpretation Comments SARS-CoV-2 Rapid ID NOW Not Detected Not Detected (test code = 69228-4) ZOE (test code = ZOE) ID NOW COVID-19 Assay is an isothermal nucleic acid amplification test intended for the qualitative detection of nucleic acid from SARS-CoV-2 viral RNA in nasopharyngeal (EMERGENCY SERVICE RESTORER) specimens. It is used under Emergency Use Authorization (EUA) by FDA. The limit of detection (LOD) of the assay is 125 Genome Equivalents/mL. A positive result is indicative of the presence of SARS-CoV-2 RNA. ?Clinical correlation with patient history and other diagnostic information is necessary to determine patient infection status. A negative (Not Detected) result does not preclude SARS-CoV-2 infection. In patients with clinical symptoms and other tests that are consistent with SARS-CoV-2 infection, negative results should be treated as presumptive negative and a new specimen should be tested with alternative PCR molecular test. Invalid: Please collect a new specimen for repeat patient testing if clinically indicated. Lab Interpretation Normal (test code = 17298-3) [facility] ONLY - FERN [id number] 12:49:07 Test Item Value Reference Range Interpretation Comments Fern Test (test code = 2364388138) Negative [facility] CenterPO[facility] URINALYSIS W SPECIFIC [id number] 19:09:00 Test Item Value Reference Range Interpretation Comments POCT U SP GRAV (test code = 3255) . 1.005-1.025 POCT PH U (test code = 3254) . 5-8 POCT U LEUK EST (test code = 3263) . Negative - Negative POCT U NIT (test code = 3262) . Negative - Negative POCT U PROT (test code = 3259) Trace Negative - Negative POCT U GLU (test code = 3256) Neg Negative - Negative POCT U KETONE (test code = 3258) .. Negative - Negative POCT U UROBILI (test code = 3260) . 0.2-1 POCT U BILI (test code = 3261) . Negative - Negative POCT U BLD (test code = 3257) . Negative - Negative POCT U COLOR (test code = 3266) . POCT U APPEAR (test code = 3267) [facility] CenterSARS-COV-2 [id number] 06:22:00 Test Item Value Reference Range Interpretation Comments CoV-2 IgG (test code Positive Negative A A posit geneva result = 59819-0) suggests exposu re to SARS-CoV-2 b ut does not necessarily indicate immunity. Resul ts should be used in conjunction wit h symptoms, other test results an d clinical impression. Thi s test should not be used for screening of donated blood. ZOE (test code = ZOE) This test has been approved by FDA for emergency use. Lab Interpretation Abnormal (test code = 68586-7) [facility] WITH [id number] 04:07:00 Test Item Value Reference Range Interpretation Comments WBC (test code = See_Comment [Automated 7165-2) message] The sy stem which generated this result transmitted reference range : 4.30 - 11.10 10*3/?L. The reference range was not used to interpret this result as normal/abnormal . RBC (test code = See_Comment L [Automated 789-8) message] The sy stem which generated this result transmitted reference range : 3.93 - 5.25 10*6/?L. The reference range was not used to interpret this result as normal/abnormal . HGB (test code = 10.4 g/dL 11.6-15 L 718-7) HCT (test code = 31.4 % 35.7-45.2 L 4544-3) MCV (test code = 86.5 fL 80.6-95.5 787-2) MCH (test code = 28.7 pg 25.9-32.8 785-6) MCHC (test code = 33.1 g/dL 31.6-35.1 786-4) RDW-SD (test code = 41.0 fL 39-49.9 45765-6) RDW-CV (test code = 13.1 % 12-15.5 788-0) PLT (test code = See_Comment [Automated 777-3) message] The sy stem which generated this result transmitted reference range : 166 - 358 10*3/ ?L. The reference r dustin was not used to interpret this result as normal/abnormal . MPV (test code = 9.0 fL 9.5-12.9 L 10399-7) NRBC/100 WBC (test See_Comment [Automat ed code = [id number]) message] The system which generated this result transmitted reference range : 0.0 - 10.0 /100 WBCs. The refer ence range was not u sed to interpret th is result as normal/abnormal . NRBC x10^3 (test code <0.01 See_Comment [Auto mated = [id number]) message] The s ystem which generated this result transmitted reference range : 10*3/?L. The reference range was not used to interpret this result as normal/abnormal . GRAN MAT (NEUT) % 75.3 % (test code = 770-8) IMM GRAN % (test code 0.50 % = 2506432578) LYMPH % (test code = 16.6 % 736-9) MONO % (test code = 5.7 % 5905-5) EOS % (test code = 1.4 % 713-8) BASO % (test code = 0.5 % 706-2) GRAN MAT x10^3(ANC) 4.76 10*3/uL 1.88-7.09 (test code = 5292080465) IMM GRAN x10^3 (test 0.03 10*3/uL 0-0.06 code = 0463501389) LYMPH x10^3 (test code 1.05 10*3/uL 1.32-3.29 L = 731-0) MONO x10^3 (test code 0.36 10*3/uL 0.33-0.92 = 742-7) EOS x10^3 (test code = 0.09 10*3/uL 0.03-0.39 711-2) BASO x10^3 (test code 0.03 10*3/uL 0.01-0.07 = 704-7) Lab Interpretation Abnormal (test code = 49909-6) [facility] URINALYSIS W SPECIFIC [id number] 19:44:00 Test Item Value Reference Range Interpretation Comments POCT U SP GRAV (test code = 3255) . 1.005-1.025 POCT PH U (test code = 3254) . 5-8 POCT U LEUK EST (test code = 3263) . Negative - Negative POCT U NIT (test code = 3262) . Negative - Negative POCT U PROT (test code = 3259) Trace Negative - Negative POCT U GLU (test code = 3256) Neg Negative - Negative POCT U KETONE (test code = 3258) . Negative - Negative POCT U UROBILI (test code = 3260) . 0.2-1 POCT U BILI (test code = 3261) . Negative - Negative POCT U BLD (test code = 3257) . Negative - Negative POCT U COLOR (test code = 3266) . POCT U APPEAR (test code = 3267) [facility] URINALYSIS W SPECIFIC [id number] 22:18:00 Test Item Value Reference Range Interpretation Comments POCT U SP GRAV (test code = 3255) . 1.005-1.025 POCT PH U (test code = 3254) . 5-8 POCT U LEUK EST (test code = 3263) . Negative - Negative POCT U NIT (test code = 3262) . Negative - Negative POCT U PROT (test code = 3259) Trace Negative - Negative POCT U GLU (test code = 3256) Neg Negative - Negative POCT U KETONE (test code = 3258) . Negative - Negative POCT U UROBILI (test code = 3260) . 0.2-1 POCT U BILI (test code = 3261) . Negative - Negative POCT U BLD (test code = 3257) . Negative - Negative POCT U COLOR (test code = 3266) POCT U APPEAR (test code = 3267) [facility] URINALYSIS W SPECIFIC [id number] 19:20:00 Test Item Value Reference Range Interpretation Comments POCT U SP GRAV (test code = 3255) . 1.005-1.025 POCT PH U (test code = 3254) . 5-8 POCT U LEUK EST (test code = 3263) . Negative - Negative POCT U NIT (test code = 3262) . Negative - Negative POCT U PROT (test code = 3259) Trace Negative - Negative POCT U GLU (test code = 3256) Neg Negative - Negative POCT U KETONE (test code = 3258) . Negative - Negative POCT U UROBILI (test code = 3260) . 0.2-1 POCT U BILI (test code = 3261) . Negative - Negative POCT U BLD (test code = 3257) . Negative - Negative POCT U COLOR (test code = 3266) . POCT U APPEAR (test code = 3267) [facility] URINALYSIS W SPECIFIC [id number] 19:20:00 Test Item Value Reference Range Interpretation Comments POCT U SP GRAV (test code = 3255) . 1.005-1.025 POCT PH U (test code = 3254) . 5-8 POCT U LEUK EST (test code = 3263) . Negative - Negative POCT U NIT (test code = 3262) . Negative - Negative POCT U PROT (test code = 3259) Trace Negative - Negative POCT U GLU (test code = 3256) Neg Negative - Negative POCT U KETONE (test code = 3258) . Negative - Negative POCT U UROBILI (test code = 3260) . 0.2-1 POCT U BILI (test code = 3261) . Negative - Negative POCT U BLD (test code = 3257) . Negative - Negative POCT U COLOR (test code = 3266) . POCT U APPEAR (test code = 3267) [facility] [id number] 19:20:00 Test Item Value Reference Range Interpretation Comments POCT U SP GRAV (test code = 3255) . 1.005-1.025 POCT PH U (test code = 3254) . 5-8 POCT U LEUK EST (test code = 3263) . Negative - Negative POCT U NIT (test code = 3262) . Negative - Negative POCT U PROT (test code = 3259) Trace Negative - Negative POCT U GLU (test code = 3256) Neg Negative - Negative POCT U KETONE (test code = 3258) . Negative - Negative POCT U UROBILI (test code = 3260) . 0.2-1 POCT U BILI (test code = 3261) . Negative - Negative POCT U BLD (test code = 3257) . Negative - Negative POCT U COLOR (test code = 3266) . POCT U APPEAR (test code = 3267) [facility] [id number] 14:41:00 Test Item Value Reference Range Interpretation Comments POCT U SP GRAV (test code = 3255) . 1.005-1.025 POCT PH U (test code = 3254) . 5-8 POCT U LEUK EST (test code = 3263) . Negative - Negative POCT U NIT (test code = 3262) . Negative - Negative POCT U PROT (test code = 3259) Trace Negative - Negative POCT U GLU (test code = 3256) Neg Negative - Negative POCT U KETONE (test code = 3258) . Negative - Negative POCT U UROBILI (test code = 3260) . 0.2-1 POCT U BILI (test code = 3261) . Negative - Negative POCT U BLD (test code = 3257) . Negative - Negative POCT U COLOR (test code = 3266) POCT U APPEAR (test code = 3267) [facility] & CHLAMYDIA AMPLIFIED [id number] 19:24:00 Test Item Value Reference Range Interpretation Comments C. trachomatis Nucleic Negative Negative Acid (test code = 21206-8) N. gonorrhoeae Nucleic Negative Negative Acid (test code = 89687-8) ZOE (test code = ZOE) Reliable results are dependent on adequate specimen collection. ? A positive result obtained from a patient after therapeutic treatment cannot be interpreted as indicating the presence of viable organisms. ?For patients on whom a false positive result may have adverse psychosocial impact, retesting is advised. Indeterminate: Unable to generate a valid test result on this specimen. ?Please submit a new specimen for repeat testing if clinically indicated. Chlamydia trachomatis/Neisseria gonorrhoeae nucleic acid amplification testing (NAAT) has not been validated for medico-legal specimens (sexual abuse in mercedes-pubertal and pre-pubertal children, sexual assault, and legal cases). ?Culture for Chlamydia trachomatis and/or Neisseria gonorrhoeae from clinically appropriate sites is the method of choice in these cases. ? Results from this testing should be interpreted in conjunction with other laboratory and clinical data available to the clinician.For females in general, a urine specimen is a second-line option because it is considered less sensitive than a cervical swab for Chlamydia trachomatis and/or Neisseria gonorrhoeae NAAT. Lab Interpretation Normal (test code = 75505-3) [facility] CenterRU[facility]LL[facility] SCREEN ([place]) [id number] 16:34:00 Test Item Value Reference Range Interpretation Comments Rubella screen IgG Positive Negative (test code = 6897973216) ZOE (test code = ZOE) Positive - Indicates the patient was exposed to Rubella through infection or vaccination.Negative - Indicates the patient could be susceptible to Rubella infection.Equivocal - A second specimen should be sent. [facility] [id number] 16:34:00 Test Item Value Reference Range Interpretation Comments VZV IgG antibody Equivocal Negative (test code = 51682-2) ZOE (test code = ZOE) Positive - Indicates the patient was exposed to VZV through infection or vaccination.Negative - Indicates the patient could be susceptible to VZV infection.Equivocal - A second specimen should be sent for testing. [facility] ONLY - SYPHILIS [id number] 13:39:00 Test Item Value Reference Range Interpretation Comments Syphilis IgG/IgM (test Non-reactive Non-reactive code = 77777-2) ZOE (test code = ZOE) Non-reactive - No serologic evidence of T. pallidum infection. Cannot exclude incubating or early syphilis. Submit a second specimen in 2-4 weeks if syphilis is clinically suspected. Equivocal - Further testing to follow. Reactive - Further testing to follow. Lab Interpretation (test Normal code = 56681-7) [facility] CenterHEPAT[facility]IS B SURFACE [id number] 06:17:00 Test Item Value Reference Range Interpretation Comments HBsAg Semi-Quantitative (test code = Negative Negative 5195-3) [facility] CenterPRENATAL WORKUP, BLOOD [id number] 05:05:42 Test Item Value Reference Range Interpretation Comments ABO & RH (test code B POSITIVE Performe d at [facility] = 20) Laboratory Serv [facility] [address] [facility] s [id number] Free: [phone] A No. [id number] IAT (test code = Negative Performed a t [facility] 1185) Laboratory [facility] s [id number] Free: [phone] A No. [id number] [facility] CenterHIV 1/2 AG-AB WITH [id number] 04:49:00 Test Item Value Reference Range Interpretation Comments HIV Negative Negative Semi-quantitative (test code = 25072-2) ZOE (test code = Non-reactive for HIV-1 ZOE) antigen and HIV-1/HIV-2 antibodies. ?No laboratory evidence of HIV infection. ?Repeat in 2-4 weeks if acute HIV infection is suspected. [facility] CenterSARS-COV-2 [id number] 04:28:00 Test Item Value Reference Range Interpretation Comments CoV-2 IgG (test code Negative Negative Negativ e result = 69376-2) does not rule o ut acute SARS-CoV- 2 infection. Clinical correlation as well as molecul ar diagnostic test are recommended to rule out acu te infection if clinically indicated. ZOE (test code = ZOE) This test has been approved by FDA for emergency use. Lab Interpretation Normal (test code = 86961-1) [facility] CenterGlucose 1 Hour Post [id number] 03:59:00 Test Item Value Reference Range Interpretation Comments GLUC 1 HR (test code = 6857420685) 96 mg/dL 120-170 L Lab Interpretation (test code = Abnormal 46945-4) [facility] WITH [id number] 03:13:00 Test Item Value Reference Range Interpretation Comments WBC (test code = See_Comment [Automated 6690-2) message] The sy stem which generated this result transmitted reference range : 4.30 - 11.10 10*3/?L. The reference range was not used to interpret this result as normal/abnormal . RBC (test code = See_Comment L [Automated 789-8) message] The sy stem which generated this result transmitted reference range : 3.93 - 5.25 10*6/?L. The reference range was not used to interpret this result as normal/abnormal . HGB (test code = 12.2 g/dL 11.6-15 718-7) HCT (test code = 35.9 % 35.7-45.2 4544-3) MCV (test code = 91.6 fL 80.6-95.5 787-2) MCH (test code = 31.1 pg 25.9-32.8 785-6) MCHC (test code = 34.0 g/dL 31.6-35.1 786-4) RDW-SD (test code = 39.9 fL 39-49.9 71612-7) RDW-CV (test code = 11.9 % 12-15.5 L 788-0) PLT (test code = See_Comment [Automated 777-3) message] The sy stem which generated this result transmitted reference range : 166 - 358 10*3/ ?L. The reference r dustin was not used to interpret this result as normal/abnormal . MPV (test code = 9.1 fL 9.5-12.9 L 82043-9) NRBC/100 WBC (test See_Comment [Automat ed code = 6291895500) message] The system which generated this result transmitted reference range : 0.0 - 10.0 /100 WBCs. The refer ence range was not u sed to interpret th is result as normal/abnormal . NRBC x10^3 (test code <0.01 See_Comment [Auto mated = 6627778570) message] The s ystem which generated this result transmitted reference range : 10*3/?L. The reference range was not used to interpret this result as normal/abnormal . GRAN MAT (NEUT) % 69.1 % (test code = 770-8) IMM GRAN % (test code 0.40 % = 6788958073) LYMPH % (test code = 22.6 % 736-9) MONO % (test code = 5.3 % 5905-5) EOS % (test code = 2.1 % 713-8) BASO % (test code = 0.5 % 706-2) GRAN MAT x10^3(ANC) 3.94 10*3/uL 1.88-7.09 (test code = 7598349563) IMM GRAN x10^3 (test <0.03 0-0.06 code = 6343386718) LYMPH x10^3 (test code 1.29 10*3/uL 1.32-3.29 L = 731-0) MONO x10^3 (test code 0.30 10*3/uL 0.33-0.92 L = 742-7) EOS x10^3 (test code = 0.12 10*3/uL 0.03-0.39 711-2) BASO x10^3 (test code 0.03 10*3/uL 0.01-0.07 = 704-7) Lab Interpretation Abnormal (test code = 31795-4) [facility] [id number] 20:00:00 Test Item Value Reference Range Interpretation Comments POCT PREG (test code = 1605) Positive On board controls acceptable with C Yes Line (test code = 3574) POCT PREG LOT # (test code = 3575) POCT PREG TEST DATE (test code = 3576) [facility] URINALYSIS W/O SPECIFIC [id number] 20:00:00 Test Item Value Reference Range Interpretation Comments POCT PH U (test code = 3254) 7 mg/dl 5-8 POCT U LEUK EST (test code = Trace Negative - Negative 3263) POCT U NIT (test code = 3262) Neg Negative - Negative POCT U PROT (test code = 3259) Trace Negative - Negative POCT U GLU (test code = 3256) Neg Negative - Negative POCT U KETONE (test code = 3258) None Negative - Negative POCT U BLD (test code = 3257) Neg Negative - Negative [facility] [id number] 20:00:00 Test Item Value Reference Range Interpretation Comments POCT PREG (test code = 1605) Positive On board controls acceptable with C Yes Line (test code = 3574) POCT PREG LOT # (test code = 3575) POCT PREG TEST DATE (test code = 357) [facility] URINALYSIS W/O SPECIFIC [id number] 20:00:00 Test Item Value Reference Range Interpretation Comments POCT PH U (test code = 3254) 7 mg/dl 5-8 POCT U LEUK EST (test code = Trace Negative - Negative 3263) POCT U NIT (test code = 3262) Neg Negative - Negative POCT U PROT (test code = 3259) Trace Negative - Negative POCT U GLU (test code = 3256) Neg Negative - Negative POCT U KETONE (test code = 3258) None Negative - Negative POCT U BLD (test code = 3257) Neg Negative - Negative [facility] [id number] 20:00:00 Test Item Value Reference Range Interpretation Comments POCT PREG (test code = 1605) Positive On board controls acceptable with C Yes Line (test code = 3574) POCT PREG LOT # (test code = 3575) POCT PREG TEST DATE (test code = 3576) [facility] URINALYSIS W/O SPECIFIC [id number] 20:00:00 Test Item Value Reference Range Interpretation Comments POCT PH U (test code = 3254) 7 mg/dl 5-8 POCT U LEUK EST (test code = Trace Negative - Negative 3263) POCT U NIT (test code = 3262) Neg Negative - Negative POCT U PROT (test code = 3259) Trace Negative - Negative POCT U GLU (test code = 3256) Neg Negative - Negative POCT U KETONE (test code = 3258) None Negative - Negative POCT U BLD (test code = 3257) Neg Negative - Negative [facility] [id number] 20:00:00 Test Item Value Reference Range Interpretation Comments POCT PREG (test code = 1605) Positive On board controls acceptable with C Yes Line (test code = 3574) POCT PREG LOT # (test code = 3575) POCT PREG TEST DATE (test code = 357) [facility]/O SPECIFIC [id number] 20:00:00 Test Item Value Reference Range Interpretation Comments POCT PH U (test code = 3254) 7 mg/dl 5-8 POCT U LEUK EST (test code = Trace Negative - Negative 3263) POCT U NIT (test code = 3262) Neg Negative - Negative POCT U PROT (test code = 3259) Trace Negative - Negative POCT U GLU (test code = 3256) Neg Negative - Negative POCT U KETONE (test code = 3258) None Negative - Negative POCT U BLD (test code = 3257) Neg Negative - Negative [facility]POCT [id number] 20:00:00 Test Item Value Reference Range Interpretation Comments POCT PREG (test code = 1605) Positive On board controls acceptable with C Yes Line (test code = 3574) POCT PREG LOT # (test code = 3575) POCT PREG TEST DATE (test code = 357) [facility]/O SPECIFIC [id number] 20:00:00 Test Item Value Reference Range Interpretation Comments POCT PH U (test code = 3254) 7 mg/dl 5-8 POCT U LEUK EST (test code = Trace Negative - Negative 3263) POCT U NIT (test code = 3262) Neg Negative - Negative POCT U PROT (test code = 3259) Trace Negative - Negative POCT U GLU (test code = 3256) Neg Negative - Negative POCT U KETONE (test code = 3258) None Negative - Negative POCT U BLD (test code = 3257) Neg Negative - Negative [facility][U] XRAY PELVIS MIN 3 VWS [id number] 11:51:00Images acquired, not reported on this accession number.[employer] [facility]
[2021-12-02 14:46] LABS: Absolute Lymphocytes (CBC) 1.2 K/uL (0.7-4.9); Hematocrit 38.9 % (36.0-45.0); Lymphocytes % 17.1 % (15.3-44.8); MPV 6.8 fL (7.6-11.3); RBC Red Blood Cell Count 4.22 M/uL (3.86-4.86)
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
[2021-12-02 14:50] LABS: Protime INR 1.01
[2021-12-02 15:05] LABS: ALT/SGPT 43 U/L (12-78); AST/SGOT 33 U/L (15-37); Albumin 3.5 g/dL (3.4-5.0); Alkaline Phosphatase 162 U/L (45-117); BUN Blood Urea Nitrogen 8 mg/dL (7-18); Bicarbonate 25 mmol/L (21-32); Bilirubin Direct 0.2 mg/dL (0-0.2); Bilirubin Total 0.5 mg/dL (0.2-1.0); Glomerular Filtration Rate 90 ml/min (=/>90); Glucose Level 105 mg/dL (74-106); Protein, Total 7.2 g/dL (6.4-8.2); Sodium Level 139 mmol/L (136-145)
[2021-12-02 15:08] LABS: Potassium 2.7 mmol/L (3.5-5.1)
[2021-12-02] MEDS ORDERED: KCL 20 MEQ/100 mL IVPB 100 ML IV ONE (15:52)
[2021-12-02] MEDS ORDERED: NA CHLORIDE 0.9% 250 ML ONE (15:52)
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
[2021-12-02 17:57] VITALS: BP 130/71; TEMP 98.8; O2SAT 100
--- NOTE | 2021-12-03 09:52 | EKG ---
Test Date: 2021-12-02 Test Time: 14:58:12 Reliability Specialist: MB MEASUREMENT RESULTS: Intervals: Rate: 67 [place]: 110 QRSD: 94 QT: 434 QTc: 458 [place]: P: 53 [place]: 110 QRS: 82 T: 66 INTERPRETIVE STATEMENTS: Sinus rhythm with short [place] Otherwise normal ECG Compared to ECG 08/07/2019 19:37:31 Sinus bradycardia no longer present Electronically Signed On 12-03-21 09:49:50 CDT by Seb Gooden
== END 2021-12-02 17:27 | disposition home or self-care (01) ==
LOC: ER 13:54
DX: F31.9 Bipolar disorder, unspecified (principal); Z88.3 Allergy status to other anti-infective agents; Z88.5 Allergy status to narcotic agent
CPT/HCPCS: 96365; 93005; 85025; 80048; 36415; 80320; 80329 ×2; 85610; 80076; 85730; 71045; 99284; J3480; J7050

== ENCOUNTER → 2023-07-11 | Emergency (ER) | payer OTHER ==
[~2023-07-11] MED LIST: METHYLPREDNISOLONE 125 MG INJ ONE
--- OUTSIDE RECORDS SUMMARY | 2023-07-11 23:17 | XMS REPORT | Continuity of Care Document ---
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 [facility] omeprazole 20 mg capsule 12-03 00:00: 00 Yes TAKE ONE CAPSULE BY MOUTH EVERY DAY [facility] omeprazole 20 mg capsule 12-03 00:00: 00 Yes TAKE ONE CAPSULE BY MOUTH EVERY DAY [facility] omeprazole 20 mg capsule 12-03 00:00: 00 Yes TAKE ONE CAPSULE BY MOUTH EVERY DAY [facility] omeprazole 20 mg capsule 12-03 00:00: 00 Yes TAKE ONE CAPSULE BY MOUTH EVERY DAY [facility] omeprazole 20 mg capsule 12-03 00:00: 00 Yes TAKE ONE CAPSULE BY MOUTH EVERY DAY [facility] omeprazole 20 mg capsule 12-03 00:00: 00 Yes TAKE ONE CAPSULE BY MOUTH EVERY DAY [facility] omeprazole 20 mg capsule 12-03 00:00: 00 Yes TAKE ONE CAPSULE BY MOUTH EVERY DAY [facility] Vital Signs Vital Name Observation Time Observation Value Comments S ource Systolic blood pressure 2020-09-08 01:30:00 121 mm[Hg] [facility] Diastolic blood pressure 2020-09-08 01:30:00 77 mm[Hg] [facility] Heart rate 2020-09-08 01:30:00 73 /min [facility] Body temperature 2020-09-08 01:30:00 36.67 [facility] Respiratory rate 2020-09-08 01:30:00 18 /min [facility] Oxygen saturation in Arterial blood by Pulse oximetry 2020-09-07 13:10:00 98 /min [facility] Body height 2020-09-06 17:39:00 157.5 cm [facility] Body weight 2020-09-06 17:39:00 127.007 kg [facility] BMI 2020-09-06 17:39:00 51.21 kg/m2 [facility] Systolic blood pressure 2020-08-30 16:58:00 111 mm[Hg] [facility] Diastolic blood pressure 2020-08-30 16:58:00 71 mm[Hg] [facility] Heart rate 2020-08-30 16:58:00 72 /min [facility] Body temperature 2020-08-30 16:58:00 36.39 [facility] Respiratory rate 2020-08-30 16:58:00 16 /min [facility] Body height 2020-08-30 16:58:00 157.5 cm [facility] Body weight 2020-08-30 16:58:00 130.381 kg [facility] BMI 2020-08-30 16:58:00 52.57 kg/m2 [facility] Systolic blood pressure 2020-08-21 19:41:00 107 mm[Hg] [facility] Diastolic blood pressure 2020-08-21 19:41:00 67 mm[Hg] [facility] Heart rate 2020-08-21 19:41:00 73 /min [facility] Body temperature 2020-08-21 19:41:00 36.5 [facility] Respiratory rate 2020-08-21 19:41:00 16 /min [facility] Body height 2020-08-21 19:41:00 157.5 cm [facility] Body weight 2020-08-21 19:41:00 127.659 kg [facility] BMI 2020-08-21 19:41:00 51.48 kg/m2 [facility] Systolic blood pressure 2020-08-07 22:01:00 110 mm[Hg] [facility] Diastolic blood pressure 2020-08-07 22:01:00 65 mm[Hg] [facility] Heart rate 2020-08-07 22:01:00 70 /min [facility] Body temperature 2020-08-07 22:01:00 36.5 [facility] Respiratory rate 2020-08-07 22:01:00 16 /min [facility] Body height 2020-08-07 22:01:00 157.5 cm [facility] Body weight 2020-08-07 22:01:00 129.53 kg [facility] BMI 2020-08-07 22:01:00 52.23 kg/m2 [facility] Systolic blood pressure 2020-06-27 22:02:00 98 mm[Hg] [facility] Diastolic blood pressure 2020-06-27 22:02:00 63 mm[Hg] [facility] Heart rate 2020-06-27 22:02:00 80 /min [facility] Body temperature 2020-06-27 22:02:00 36.22 [facility] Respiratory rate 2020-06-27 22:02:00 16 /min [facility] Body height 2020-06-27 22:02:00 157.5 cm [facility] Body weight 2020-06-27 22:02:00 123.86 kg [facility] BMI 2020-06-27 22:02:00 49.94 kg/m2 [facility] Systolic blood pressure 2020-06-01 19:15:00 109 mm[Hg] [facility] Diastolic blood pressure 2020-06-01 19:15:00 72 mm[Hg] [facility] Heart rate 2020-06-01 19:15:00 73 /min [facility] Body temperature 2020-06-01 19:15:00 36.17 [facility] Respiratory rate 2020-06-01 19:15:00 16 /min [facility] Body height 2020-06-01 19:15:00 157.5 cm [facility] Body weight 2020-06-01 19:15:00 121.621 kg [facility] BMI 2020-06-01 19:15:00 49.04 kg/m2 [facility] Systolic blood pressure 2020-04-23 14:40:00 120 mm[Hg] [facility] Diastolic blood pressure 2020-04-23 14:40:00 75 mm[Hg] [facility] Heart rate 2020-04-23 14:40:00 76 /min [facility] Body temperature 2020-04-23 14:40:00 36.11 [facility] Respiratory rate 2020-04-23 14:40:00 16 /min [facility] Body height 2020-04-23 14:40:00 157.5 cm [facility] Body weight 2020-04-23 14:40:00 118.162 kg [facility] BMI 2020-04-23 14:40:00 47.65 kg/m2 [facility] Systolic blood pressure 2020-04-23 14:40:00 120 mm[Hg] [facility] Diastolic blood pressure 2020-04-23 14:40:00 75 mm[Hg] [facility] Heart rate 2020-04-23 14:40:00 76 /min [facility] Body temperature 2020-04-23 14:40:00 36.11 [facility] Respiratory rate 2020-04-23 14:40:00 16 /min [facility] Body height 2020-04-23 14:40:00 157.5 cm [facility] Body weight 2020-04-23 14:40:00 118.162 kg [facility] BMI 2020-04-23 14:40:00 47.65 kg/m2 [facility] Systolic blood pressure 2020-04-09 18:54:00 109 mm[Hg] [facility] Diastolic blood pressure 2020-04-09 18:54:00 69 mm[Hg] [facility] Heart rate 2020-04-09 18:54:00 60 /min [facility] Body temperature 2020-04-09 18:54:00 36.5 [facility] Respiratory rate 2020-04-09 18:54:00 16 /min [facility] Body height 2020-04-09 18:54:00 157.5 cm [facility] Body weight 2020-04-09 18:54:00 115.837 kg [facility] BMI 2020-04-09 18:54:00 46.71 kg/m2 [facility] Systolic blood pressure 2020-04-09 18:54:00 109 mm[Hg] [facility] Diastolic blood pressure 2020-04-09 18:54:00 69 mm[Hg] [facility] Heart rate 2020-04-09 18:54:00 60 /min [facility] Body temperature 2020-04-09 18:54:00 36.5 [facility] Respiratory rate 2020-04-09 18:54:00 16 /min [facility] Body height 2020-04-09 18:54:00 157.5 cm [facility] Body weight 2020-04-09 18:54:00 115.837 kg [facility] BMI 2020-04-09 18:54:00 46.71 kg/m2 [facility] Systolic blood pressure 2020-03-13 20:09:00 101 mm[Hg] [facility] Diastolic blood pressure 2020-03-13 20:09:00 72 mm[Hg] [facility] Heart rate 2020-03-13 20:09:00 61 /[facility] Body temperature 2020-03-13 20:09:00 36 [facility] Respiratory rate 2020-03-13 20:09:00 16 /min [facility] Body height 2020-03-13 20:09:00 157.5 cm [facility] Body weight 2020-03-13 20:09:00 94.15 kg [facility] BMI 2020-03-13 20:09:00 37.96 kg/m2 [facility] Procedures Procedure Date / Time Performed Performing Clinician Source ADC OR FE ONLY - RPR 2020-09-07 22:22:00 Adum, Sushila Chamorro [facility] CBC WITH DIFF 2020-09-07 09:26:00 [facility] VENOUS CORD GAS 2020-09-06 23:13:00 Adum, Sushila Chamorro [facility] HB ABO GROUPING 2020-09-06 13:15:00 Adum, Sushila Chamorro [facility] CBC WITH DIFF 2020-09-06 13:14:00 Adum, Sushila Jama [facility] HEPATITIS B SURFACE ANTIGEN 2020-09-06 13:14:00 Adum, Sushila Chamorro [facility] HIV 1/2 AG-AB WITH REFLEX 2020-09-06 13:14:00 Adum, Sushila Chamorro [facility] ADC ONLY - FERN TEST 2020-09-06 11:58:00 Adum, Sushila Chamorro [facility] COVID-19 (ID NOW RAPID TESTING) 2020-09-06 11:51:00 Adum, Sushila Chamorro [facility] ASSIGNMENT OF BENEFITS 2020-09-06 11:28:48 Docto r Unassigned, [facility] NOTICE OF PRIVACY PRACTICES 2020-09-06 11:26:23 Doctor Unassigned, [facility] CONSENT/REFUSAL FOR DIAGNOSIS AND TREATMENT 2020-09-06 11:26:05 Doctor Unassigned, [facility] CONSENT/REFUSAL FOR DIAGNOSIS AND TREATMENT 2020-09-06 11:26:04 Doctor Unassigned, [facility] POCT URINALYSIS 2020-08-30 19:09:00 Lynne Dinh [facility] POCT URINALYSIS 2020-08-21 19:44:00 Lynne Dinh [facility] CBC WITH DIFF 2020-08-21 19:40:00 Lynne Dinh [facility] SARS-COV-2 IGG 2020-08-21 19:40:00 Lynne Dinh [facility] POCT URINALYSIS 2020-06-27 22:18:00 Lynne Dinh [facility] TDAP VACCINE, >11 YRS, IM 2020-06-27 21:51:58 Lynne Dinh [facility] AUTHORIZATION TO RELEASE PHI TO [facility] 2020-06-15 06:01:00 Doctor Unassigned, [facility] POCT URINALYSIS 2020-06-01 19:20:00 Lynne Dinh [facility] SECOND AND THIRD TRIMESTER ULTRASOUND 2020-04-27 13:11:00 Lynne Dinh [facility] RUBBER CUTTING MACHINE TENDER CLINIC ULTRASOUND 2020-04-27 05:01:00 Doc tor Unassigned, [facility] POCT URINALYSIS 2020-04-23 14:41:00 Lynne Dinh [facility] GC & CHLAMYDIA AMPLIFIED ASSAY 2020-03-13 21:19:00 Lynne Dinh [facility] GLUCOSE 1 HOUR POST PRANDIAL 2020-03-13 21:10:00 Lynne Dinh [facility] CBC WITH DIFF 2020-03-13 21:10:00 Lynne Dinh [facility] RUBELLA SCREEN IGG 2020-03-13 21:10:00 Angela Dinh [facility] VZV ANTIBODY SCREEN 2020-03-13 21:10:00 Dejan Dinh [facility] HEPATITIS B SURFACE ANTIGEN 2020-03-13 21:10:00 Lynne Dinh [facility] HIV 1/2 AG-AB WITH REFLEX 2020-03-13 21:10:00 Lynne Dinh [facility] GALV ONLY - SYPHILIS IGG/IGM 2020-03-13 21:10:00 Lynne Dinh [facility] SARS-COV-2 IGG 2020-03-13 21:10:00 Lynne Dinh [facility] HB ABO GROUPING 2020-03-13 21:05:00 Lynne Dinh [facility] POCT TEST 2020-03-13 20:00:00 Dejan Dinh [facility] POCT URINALYSIS W/O SPECIFIC GRAVITY 2020-03-13 20:00:00 Lynne Dinh [facility] ASSIGNMENT OF BENEFITS 2020-03-13 19:07:48 Docto r Unassigned, [facility] [U] XRAY PELVIS MIN 3 [id number] [id number] 2018-11-15 00:00:00 [facility] [U] XRAY PELVIS MIN 3 [id number] [id number] 2018-10-08 00:00:00 [facility] Encounters Start Date/Time End Date/Time Encounter Type Admission Type Attending Clinicians Care Facility Care Department Encounter ID Source 2021-04-28 05:07:22 Outpatient P [facility] RICHARD [id number] [facility] 2022-11-27 14:48:12 2022-11-27 14:48:12 Outpatient [facility] [id number] Sherif Badillo 2020-10-09 00:00:00 2020-10-09 00:00:00 Telephone Lynne Dinh [facility] RUBBER CUTTING MACHINE TENDER [facility] & [facility]ILD [facility] [id number] [id number] [id number] [id number] [facility] 2020-10-08 09:30:00 2020-10-08 09:30:00 Outpatient R LYNNE DINH [facility] [id number] [facility] 2020-09-10 00:00:00 2020-09-10 00:00:00 Telephone Lynne Dinh [facility] RUBBER CUTTING MACHINE TENDER [facility] & CHILD [facility] [id number] 350.1.13.10 4.2.7.2.686 [id number] [facility] 2020-09-06 05:26:00 2020-09-08 09:50:00 Hospital Encounter Sushila Crawford [facility] [id number] [id number] 4.2.7.2.686 [id number] [facility] 2020-09-06 00:00:00 2020-09-06 00:00:00 Orders Only Doctor Unassigned, [facility] [id number] 350.1.13.10 4.2.7.2.686 [id number] [facility] 2020-08-30 10:46:35 2020-08-30 11:15:40 Routine Visit Lynne Dinh [facility] RUBBER CUTTING MACHINE TENDER [facility] CHILD [facility] [id number] 350.1.13.10 4.2.7.2.686 [id number] [facility] 2020-08-30 10:45:00 2020-08-30 10:45:00 Outpatient R LYNNE DINH [facility] [id number] [facility] 2020-08-28 15:00:00 2020-08-28 15:00:00 Outpatient R LYNNE DINH [facility] [id number] [facility] 2020-08-27 00:00:00 2020-08-27 00:00:00 Abstract Lynne Dinh [facility] RUBBER CUTTING MACHINE TENDER [facility] & CHILD [facility] [id number] 350.1.13.10 4.2.7.2.686 [id number] [facility] 2020-08-24 14:30:00 2020-08-24 14:30:00 Outpatient R DONTAECHAITANYA LYNNE [facility] [id number] [facility] 2020-08-24 07:55:46 2020-08-24 08:10:46 Laboratory Only Lab, NgaRmchp Dontaefadyemma Lynne Telles [facility] RUBBER CUTTING MACHINE TENDER [facility] CHILD [facility] [id number] 350.1.13.10 4.2.7.2.686 [id number] [facility] 2020-08-23 00:00:00 2020-08-23 00:00:00 Telephone Lynne Dinh [facility] RUBBER CUTTING MACHINE TENDER [facility] CHILD [facility] [id number] [id number] 4.2.7.2.686 [id number] [facility] 2020-08-22 15:20:40 2020-08-22 15:50:40 Credit Collections Specialist Visit Ultrasound, Ki Degroot [facility] RUBBER CUTTING MACHINE TENDER [facility] CHILD [facility] [id number] 350.1.13.10 4.2.7.2.686 [id number] [facility] 2020-08-22 15:15:00 2020-08-22 15:15:00 Outpatient R [facility] [id number] [facility] 2020-08-22 00:00:00 2020-08-22 00:00:00 Telephone Lynne Dinh [facility] RUBBER CUTTING MACHINE TENDER [facility] CHILD [facility] [id number] [id number] 4.2.7.2.686 [id number] [facility] 2020-08-21 13:16:09 2020-08-21 14:23:26 Routine Visit FabrizioLynne Koki [facility] RUBBER CUTTING MACHINE TENDER [facility] & CHILD [facility] ..840.114 350.1.13.10 4.2.7.2.686 [id number] [facility] 2020-08-21 13:15:00 2020-08-21 13:15:00 Outpatient R FABRIZIOLYNNE [facility] [id number] [facility] 2020-08-07 15:44:41 2020-08-07 16:28:06 Routine Visit FabrizioLynne Koki [facility] RUBBER CUTTING MACHINE TENDER [facility] & CHILD [facility] ..840.114 350.1.13.10 4.2.7.2.686 [id number] [facility] 2020-08-07 15:45:00 2020-08-07 15:45:00 Outpatient R LYNNE DINH [facility] [id number] [facility] 2020-08-01 08:30:00 2020-08-01 08:30:00 Outpatient R TGEMMA LYNNE [facility] [id number] [facility] 2020-07-30 14:30:00 2020-07-30 14:30:00 Outpatient R DONTAEFADYEMMA LYNNE [facility] [id number] [facility] 2020-07-12 10:45:00 2020-07-12 10:45:00 Outpatient R DONTAEFADYEMMA LYNNE [facility] [id number] [facility] 2020-06-28 00:00:00 2020-06-28 00:00:00 Abstract TgemmaAngelaLynne C [facility] RUBBER CUTTING MACHINE TENDER [facility] 1..840.114 350.1.13.10 4.2.7.2.686 [id number] [facility] 2020-06-27 15:46:33 2020-06-27 16:28:54 Routine Visit Lynne Dinh [facility] RUBBER CUTTING MACHINE TENDER [facility] MATERNAL & CHILD [facility] [id number] 350.1.13.10 4.2.7.2.686 [id number] [facility] 2020-06-27 15:13:22 2020-06-27 15:43:22 Credit Collections Specialist Visit Ultrasound, Francois Dudley [facility] RUBBER CUTTING MACHINE TENDER [facility] MATERNAL & CHILD [facility] 1..114 350.1.13.10 4.2.7.2.686 [id number] [facility] 2020-06-27 15:00:00 2020-06-27 15:00:00 Outpatient P [facility] [id number] [facility] 2020-06-18 14:00:00 2020-06-18 14:00:00 Outpatient R LYNNE DINH [facility] [id number] [facility] 2020-06-15 09:00:00 2020-06-15 09:00:00 Outpatient R LYNNE DINH [facility] [id number] [facility] 2020-06-15 00:00:00 2020-06-15 00:00:00 Orders Only Doctor Unassigned, [facility] 1..114 350.1.13.10 4.2.7.2.686 [id number] [facility] 2020-06-11 00:00:00 2020-06-11 00:00:00 Patient Secure Msg Doctor Unassigned, Disney [facility] RUBBER CUTTING MACHINE TENDER [facility] & CHILD [facility] 1..114 350.1.13.10 4.2.7.2.686 [id number] [facility] 2020-06-04 08:15:00 2020-06-04 08:15:00 Outpatient R LYNNE DINH [facility] [id number] [facility] 2020-06-01 12:57:12 2020-06-01 13:40:52 Routine Visit Lnyne Dinh [facility] RUBBER CUTTING MACHINE TENDER [facility] MAT[facility]NAL & CHILD [facility] 1..840.114 350.1.13.10 4.2.7.2.686 [id number] [facility] 2020-06-01 12:45:00 2020-06-01 12:45:00 Outpatient R LYNNE DINH [facility] [id number] [facility] 2020-05-30 13:00:00 2020-05-30 13:00:00 Outpatient R LYNNE DINH [facility] [id number] [facility] 2020-05-30 00:00:00 2020-05-30 00:00:00 Abstract Lynne Dinh [facility] RUBBER CUTTING MACHINE TENDER [facility] & CHILD [facility] 1..840.114 350.1.13.10 4.2.7.2.686 [id number] [facility] 2020-05-29 11:32:08 2020-05-29 12:44:56 Credit Collections Specialist Visit 1, [facility] Us Room Alecia Rader [facility] ..840.114 350.1.13.10 4.2.7.2.686 [id number] [facility] 2020-05-29 11:30:00 2020-05-29 11:30:00 Outpatient P [facility] [id number] [facility] 2020-05-28 11:30:00 2020-05-28 11:30:00 Outpatient P [facility] [id number] [facility] 2020-05-23 08:15:00 2020-05-23 08:15:00 Outpatient R LYNNE DINH [facility] [id number] [facility] 2020-05-22 00:00:00 2020-05-22 00:00:00 Abstract Lynne Dinh [facility] RUBBER CUTTING MACHINE TENDER [facility] & CHILD [facility] 1.2840.114 350.1.13.10 4.2.7.2.686 [id number] [facility] 2020-05-21 10:30:00 2020-05-21 10:30:00 Outpatient R LYNNE DINH [facility] [id number] [facility] 2020-05-04 00:00:00 2020-05-04 00:00:00 Abstract Noy Garciaily Violeta [facility] RUBBER CUTTING MACHINE TENDER [facility]ER[facility] & CHILD [facility] 1.0.114 350.1.13.10 4.2.7.2.686 [id number] [facility] 2020-05-02 13:00:00 2020-05-02 13:00:00 Outpatient SHASHA SINGH [facility] [id number] [facility] 2020-05-01 00:00:00 2020-05-01 00:00:00 Abstract Lynne Dinh [facility] RUBBER CUTTING MACHINE TENDER [facility] & CHILD [facility] 1..114 350.1.13.10 4.2.7.2.686 [id number] [facility] 2020-05-01 00:00:00 2020-05-01 00:00:00 Abstract Lynne Dinh [facility] RUBBER CUTTING MACHINE TENDER [facility] & CHILD [facility] 1..114 350.1.13.10 4.2.7.2.686 [id number] 107 [id number] 2020-04-27 08:48:19 2020-04-27 10:49:18 Credit Collections Specialist Visit 3, [facility] Us Room Speedy Khalil [facility] 1..114 350.1.13.10 4.2.7.2.686 [id number] [facility] 2020-04-27 08:48:19 2020-04-27 10:03:19 Credit Collections Specialist Visit 3, [facility] Us Room [facility] 1.2.114 350.1.13.10 4.2.7.2.686 [id number] 2020-04-27 09:00:00 2020-04-27 09:00:00 Outpatient P [facility] [id number] [facility] 2020-04-27 00:00:00 2020-04-27 00:00:00 Orders Only Doctor Unassigned, [facility] 1.840114 350.1.13.10 4.2.7.2.686 [id number] [facility] 2020-04-25 08:00:00 2020-04-25 08:00:00 Outpatient P [facility] [id number] [facility] 2020-04-24 09:00:00 2020-04-24 09:00:00 Outpatient R LYNNE DINH [facility] [id number] [facility] 2020-04-23 09:24:58 2020-04-23 10:15:07 Routine Visit Lynne Dinh [facility] RUBBER CUTTING MACHINE TENDER [facility]ILD [facility] 1.84114 350.1.13.10 4.2.7.2.686 [id number] [facility] 2020-04-23 09:24:58 2020-04-23 10:15:07 Routine Visit Lynne Dinh [facility] RUBBER CUTTING MACHINE TENDER [facility]ILD [facility] 1.84.114 350.1.13.10 4.2.7.2.686 [id number] 107 [id number] 2020-04-23 09:30:00 2020-04-23 09:30:00 Outpatient R LYNNE DINH [facility] [id number] [facility] 2020-04-09 13:36:15 2020-04-09 14:26:16 Routine Visit Faculty, Alecia Nunn [facility] RUBBER CUTTING MACHINE TENDER [facility]ILD [facility] 1.840.114 350.1.13.10 4.2.7.2.686 [id number] [facility] 2020-04-09 13:36:15 2020-04-09 14:26:16 Routine Visit Faculty, Marvin Olvera [facility] RUBBER CUTTING MACHINE TENDER [facility] 1.2.840.114 350.1.13.10 4.2.7.2.686 [id number] 2020-04-09 13:00:00 2020-04-09 13:00:00 Outpatient R [facility] [id number] [facility] 2020-03-26 13:30:00 2020-03-26 13:30:00 Outpatient R [facility] [id number] [facility] 2020-03-14 14:32:03 2020-03-14 15:22:32 Credit Collections Specialist Visit Lab, Lynne Mcdermott [facility] RUBBER CUTTING MACHINE TENDER [facility] CHILD [facility] 1.2.840.114 350.1.13.10 4.2.7.2.686 [id number] [facility] 2020-03-14 14:32:03 2020-03-14 15:22:32 Credit Collections Specialist Visit Lab, Malcom [facility] RUBBER CUTTING MACHINE TENDER [facility] CHILD [facility] 1.2.840.114 350.1.13.10 4.2.7.2.686 [id number] 2020-03-13 14:50:27 2020-03-14 14:44:47 Initial Visit Lynne Dinh [facility] RUBBER CUTTING MACHINE TENDER [facility] 1.2.840.114 350.1.13.10 4.2.7.2.686 [id number] 107 [id number] [facility] 2020-03-14 14:00:00 2020-03-14 14:00:00 Outpatient R LNYNE DINH [facility] [id number] [facility] 2020-03-14 09:00:00 2020-03-14 09:00:00 Outpatient R [facility] [id number] [facility] 2020-03-13 14:00:00 2020-03-13 14:00:00 Outpatient R LYNNE DINH [facility] [id number] [facility] 2020-03-13 13:30:00 2020-03-13 13:30:00 Outpatient R LYNNE DINH [facility] [id number] [facility] 2020-03-13 00:00:00 2020-03-13 00:00:00 Orders Only Doctor Unassigned, [facility] 1.2.840.114 350.1.13.10 4.2.7.2.686 [id number] [facility] 2018-11-24 09:30:00 2018-11-24 09:30:00 Appointmen t; GARFIELD YI, [employer] STORE COURTESY CLERK GAR[facility] YI, [employer]OC[employer] STORE COURTESY CLERK [facility] Orthopedics [id number] [place] [facility] 2018-10-13 09:30:00 2018-10-13 09:30:00 Appointmen t; GARFIELD YI, [employer] STORE COURTESY CLERK GARFIELD YI, [employer]OC[employer] STORE COURTESY CLERK [facility] Orthopedics [id number] [place] [facility] 2018-09-15 11:00:00 2018-09-15 11:00:00 Appointmen t; GARFIELD YI [employer] ST[employer] COURTESY CLERK GAR[place] YI, [employer]OC[employer] STORE COURTESY CLERK [facility] UTP [id number] [place] [facility] [place] Results Test Description Test Time Test Comments Results Result Co mments Source [facility] with [id number] 09:36:12* Test Item Value Reference Range Interpretation Comme nts WBC (test code = 6690-2) See_Comment [Automated messa ge] The system which generated this result transmitted reference range: 4.30 - 11.10 10*3/?L. The reference range was not used to interpret this result as normal/abnormal. RBC (test code = 789-8) See_Comment L [Automated messa ge] The system which generated this result transmitted reference range: 3.93 - 5.25 10*6/?L. The reference range was not used to interpret this result as normal/abnormal. HGB (test code = 718-7) 10.0 g/dL 11.6-15.0 L HCT (test code = 4544-3) 30.5 % 35.7-45.2 L MCV (test code = 787-2) 87.1 fL 80.6-95.5 MCH (test code = 785-6) 28.6 pg 25.9-32.8 MCHC (test code = 786-4) 32.8 g/dL 31.6-35.1 RDW-SD (test code = 01151-7) 44.0 fL 39.0-49.9 RDW-CV (test code = 788-0) 14.0 % 12.0-15.5 PLT (test code = 777-3) See_Comment [Automated messa ge] The system which generated this result transmitted reference range: 166 - 358 10*3/?L. The reference range was not used to interpret this result as normal/abnormal. MPV (test code = 18046-7) 8.7 fL 9.5-12.9 L NRBC/100 WBC (test code = 1351574762) See_Comment [Automated [facility] ssage] The system which generated this result transmitted reference range: 0.0 - 10.0 /100 WBCs. The reference range was not used to interpret this result as normal/abnormal. NRBC x10^3 (test code = 0789501599) <0.01 See_Comment [Automated [employer]] The system which generated this result transmitted reference range: 10*3/?L. The reference range was not used to interpret this result as normal/abnormal. GRAN MAT (NEUT) % (test code = 770-8) 79.3 % IMM GRAN % (test code = 3941332179) 0.50 % LYMPH % (test code = 736-9) 14.2 % MONO % (test code = 5905-5) 4.9 % EOS % (test code = 713-8) 1.0 % BASO % (test code = 706-2) 0.1 % GRAN MAT x10^3(ANC) (test code = 3244588990) 7.89 10*3/uL 1.88-7.09 H IMM GRAN x10^3 (test code = 8426890265) 0.05 10*3/uL 0.00-0.06 LYMPH x10^3 (test code = 731-0) 1.41 10*3/uL 1.32-3.29 MONO x10^3 (test code = 742-7) 0.49 10*3/uL 0.33-0.92 EOS x10^3 (test code = 711-2) 0.10 10*3/uL 0.03-0.39 BASO x10^3 (test code = 704-7) <0.03 0.01-0.07 Lab Interpretation (test code = 51692-8) Abnormal [facility] Hospital[facility]ORD [id number] 23:25:36* Test Item Value Reference Range Interpretation Comme nts VENOUS BASE EXCESS, CORD (test code = 5727770824) mEq/L VENOUS PH, CORD (test code = 9225673484) 7.25-7.45 VENOUS PC02, CORD (test code = 8819263859) See_Comment [Automated messa ge] The system which generated this result transmitted reference range: 27 - 49 mmHg. The reference range was not used to interpret this result as normal/abnormal. VENOUS PO2, CORD (test code = 3737258826) See_Comment [Automated me ssage] The system which generated this result transmitted reference range: 17 - 41 mmHg. The reference range was not used to interpret this result as normal/abnormal. VENOUS BICARBONATE, CORD (test code = 2018384613) See_Comment [Automated messa ge] The system which generated this result transmitted reference range: 12 - 29 mEq/L. The reference range was not used to interpret this result as normal/abnormal. [facility] HospitalHepatitis B Surface [id number] 16:58:31 * Test Item Value Reference Range Interpretation Comme [facility] HBsAg Semi-Quantitative (nickolas t code = 5195-3) Negative Negative [facility] HospitalHIV 1/2 AG-AB WITH [id number] 14:47:15* Test Item Value Reference Range Interpretation Comme nts HIV Semi-quantitative (test code = 21342-7) Negative Negative ZOE (test code = ZOE) Non-reactive for HIV-1 antigen and HIV-1/HIV-2 antibodies. ?No laboratory evidence of HIV infection. ?Repeat in 2-4 weeks if acute HIV infection is suspected. [facility] HospitalType and Screen - ONCE [id number] 14:21:06 * Test Item Value Reference Range Interpretation Comme nts ABO & RH (test code = 20) B Positive Performed at [facility] Laboratory [facility] - [facility] Blood [address] [place], [place] [id number] Free: [phone] No. [id number] IAT (test code = 1185) Negative Performed at [facility] Laboratory [facility] Blood [address]Toll Free: [phone] No. [id number] [facility] HospitalCB with [id number] 13:28:10* Test Item Value Reference Range Interpretation Comme nts WBC (test code = 6690-2) See_Comment [Automated messa ge] The system which generated this result transmitted reference range: 4.30 - 11.10 10*3/?L. The reference range was not used to interpret this result as normal/abnormal. RBC (test code = 789-8) See_Comment L [Automated messa ge] The system which generated this result transmitted reference range: 3.93 - 5.25 10*6/?L. The reference range was not used to interpret this result as normal/abnormal. HGB (test code = 718-7) 10.0 g/dL 11.6-15.0 L HCT (test code = 4544-3) 30.5 % 35.7-45.2 L MCV (test code = 787-2) 86.2 fL 80.6-95.5 MCH (test code = 785-6) 28.2 pg 25.9-32.8 MCHC (test code = 786-4) 32.8 g/dL 31.6-35.1 RDW-SD (test code = 43270-4) 42.7 fL 39.0-49.9 RDW-CV (test code = 788-0) 13.7 % 12.0-15.5 PLT (test code = 777-3) See_Comment [Automated messa ge] The system which generated this result transmitted reference range: 166 - 358 10*3/?L. The reference range was not used to interpret this result as normal/abnormal. MPV (test code = 49395-5) 8.8 fL 9.5-12.9 L NRBC/100 WBC (test code = 9681806432) See_Comment [Automated me ssage] The system which generated this result transmitted reference range: 0.0 - 10.0 /100 WBCs. The reference range was not used to interpret this result as normal/abnormal. NRBC x10^3 (test code = 6495776321) <0.01 See_Comment [Automated messa ge] The system which generated this result transmitted reference range: 10*3/?L. The reference range was not used to interpret this result as normal/abnormal. GRAN MAT (NEUT) % (test code = 770-8) 76.0 % IMM GRAN % (test code = 8463394493) 0.70 % LYMPH % (test code = 736-9) 16.5 % MONO % (test code = 5905-5) 5.5 % EOS % (test code = 713-8) 1.1 % BASO % (test code = 706-2) 0.2 % GRAN MAT x10^3(ANC) (test code = 3303972291) 6.39 10*3/uL 1.88-7.09 IMM GRAN x10^3 (test code = 7016640324) 0.06 10*3/uL 0.00-0.06 LYMPH x10^3 (test code = 731-0) 1.39 10*3/uL 1.32-3.29 MONO x10^3 (test code = 742-7) 0.46 10*3/uL 0.33-0.92 EOS x10^3 (test code = 711-2) 0.09 10*3/uL 0.03-0.39 BASO x10^3 (test code = 704-7) <0.03 0.01-0.07 Lab Interpretation (test code = 20896-5) Abnormal [facility] HospitalCOVID-[facility] (ID NOW RAPID TESTING)2020-09-06 12:56:26* Test Item Value Reference Range Interpretation Comme nts SARS-CoV-2 Rapid ID NOW (test code = 31376-4) Not Detected Not Detected ZOE (test code = ZOE) ID NOW COVID-19 As say is an isothermal nucleic acid amplification test intended for the qualitative detection of nucleic acid from SARS-CoV-2 viral RNA in nasopharyngeal (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 It is used under Emergency Use [...] patient testing if clinically indicated. Lab Interpretation (test code = 82084-8) Normal [facility] HospitalAD ONLY - FERN [id number] 12:49:07* Test Item Value Reference Range Interpretation Comme nts Fern Test (test code = 6752052873) Negative [facility] URINALYSIS W SPECIFIC [id number] 19:09:00* Test Item Value Reference Range Interpretation Comme nts POCT U SP GRAV (test code = 3255) . 1.005-1.025 POCT PH U (test code = 3254) . 5-8 POCT U LEUK EST (test code = 3263) . Negative - N egative POCT U NIT (test code = 3262) . Negative - Negati ve POCT U PROT (test code = 3259) Trace Negative - Negat geneva POCT U GLU (test code = 3256) Neg Negative - Negati ve POCT U KETONE (test code = 3258) .. Negative - Neg ative POCT U UROBILI (test code = 3260) . 0.2-1 POCT U BILI (test code = 3261) . Negative - Negat geneva POCT U BLD (test code = 3257) . Negative - Negati ve POCT U COLOR (test code = 3266) . POCT U APPEAR (test code = 3267) [facility] HospitalSARS-COV-2 [id number] 06:22:00* Test Item Value Reference Range Interpretation Comme nts CoV-2 IgG (test code = 23713-8) Positive Negative A A positive resul t suggests exposure to SARS-CoV-2 but does not necessarily indicate immunity. Results should be used in conjunction with symptoms, other test results and clinical impression. This test should not be used for screening of donated blood. ZOE (test code = ZOE) This test has been approved by FDA for emergency use. Lab Interpretation (test code = 25020-2) Abnormal [facility] WITH [id number] 04:07:00* Test Item Value Reference Range Interpretation Comme nts WBC (test code = 6690-2) See_Comment [Automated messa ge] The system which generated this result transmitted reference range: 4.30 - 11.10 10*3/?L. The reference range was not used to interpret this result as normal/abnormal. RBC (test code = 789-8) See_Comment L [Automated messa ge] The system which generated this result transmitted reference range: 3.93 - 5.25 10*6/?L. The reference range was not used to interpret this result as normal/abnormal. HGB (test code = 718-7) 10.4 g/dL 11.6-15 L HCT (test code = 4544-3) 31.4 % 35.7-45.2 L MCV (test code = 787-2) 86.5 fL 80.6-95.5 MCH (test code = 785-6) 28.7 pg 25.9-32.8 MCHC (test code = 786-4) 33.1 g/dL 31.6-35.1 RDW-SD (test code = 67785-8) 41.0 fL 39-49.9 RDW-CV (test code = 788-0) 13.1 % 12-15.5 PLT (test code = 777-3) See_Comment [Automated messa ge] The system which generated this result transmitted reference range: 166 - 358 10*3/?L. The reference range was not used to interpret this result as normal/abnormal. MPV (test code = 62092-6) 9.0 fL 9.5-12.9 L NRBC/100 WBC (test code = 0733083361) See_Comment [Automated [employer] [facility] ssage] The system which generated this result transmitted reference range: 0.0 - 10.0 /100 WBCs. The reference range was not used to interpret this result as normal/abnormal. NRBC x10^3 (test code = 1783684462) <0.01 See_Comment [Automated messa ge] The system which generated this result transmitted reference range: 10*3/?L. The reference range was not used to interpret this result as normal/abnormal. GRAN MAT (NEUT) % (test code = 770-8) 75.3 % IMM GRAN % (test code = 6657247390) 0.50 % LYMPH % (test code = 736-9) 16.6 % MONO % (test code = 5905-5) 5.7 % EOS % (test code = 713-8) 1.4 % BASO % (test code = 706-2) 0.5 % GRAN MAT x10^3(ANC) (test code = 8373858985) 4.76 10*3/uL 1.88-7.09 IMM GRAN x10^3 (test code = 1230632228) 0.03 10*3/uL 0-0.06 LYMPH x10^3 (test code = 731-0) 1.05 10*3/uL 1.32-3.29 L MONO x10^3 (test code = 742-7) 0.36 10*3/uL 0.33-0.92 EOS x10^3 (test code = 711-2) 0.09 10*3/uL 0.03-0.39 BASO x10^3 (test code = 704-7) 0.03 10*3/uL 0.01-0.07 Lab Interpretation (test code = 58252-8) Abnormal [facility] URINALYSIS W SPECIFIC [id number] 19:44:00* Test Item Value Reference Range Interpretation Comme nts POCT U SP GRAV (test code = 3255) . 1.005-1.025 POCT PH U (test code = 3254) . 5-8 POCT U LEUK EST (test code = 3263) . Negative - N egative POCT U NIT (test code = 3262) . Negative - Negati ve POCT U PROT (test code = 3259) Trace Negative - Negat geneva POCT U GLU (test code = 3256) Neg Negative - Negati ve POCT U KETONE (test code = 3258) . Negative - Neg ative POCT U UROBILI (test code = 3260) . 0.2-1 POCT U BILI (test code = 3261) . Negative - Negat geneva POCT U BLD (test code = 3257) . Negative - Negati ve POCT U COLOR (test code = 3266) . POCT U APPEAR (test code = 3267) [facility] URINALYSIS W SPECIFIC [id number] 22:18:00* Test Item Value Reference Range Interpretation Comme nts POCT U SP GRAV (test code = 3255) . 1.005-1.025 POCT PH U (test code = 3254) . 5-8 POCT U LEUK EST (test code = 3263) . Negative - N egative POCT U NIT (test code = 3262) . Negative - Negati ve POCT U PROT (test code = 3259) Trace Negative - Negat geneva POCT U GLU (test code = 3256) Neg Negative - Negati ve POCT U KETONE (test code = 3258) . Negative - Neg ative POCT U UROBILI (test code = 3260) . 0.2-1 POCT U BILI (test code = 3261) . Negative - Negat geneva POCT U BLD (test code = 3257) . Negative - Negati ve POCT U COLOR (test code = 3266) POCT U APPEAR (test code = 3267) [facility] URINALYSIS W SPECIFIC [id number] 19:20:00* Test Item Value Reference Range Interpretation Comme nts POCT U SP GRAV (test code = 3255) . 1.005-1.025 POCT PH U (test code = 3254) . 5-8 POCT U LEUK EST (test code = 3263) . Negative - N egative POCT U NIT (test code = 3262) . Negative - Negati ve POCT U PROT (test code = 3259) Trace Negative - Negat geneva POCT U GLU (test code = 3256) Neg Negative - Negati ve POCT U KETONE (test code = 3258) . Negative - Neg ative POCT U UROBILI (test code = 3260) . 0.2-1 POCT U BILI (test code = 3261) . Negative - Negat geneva POCT U BLD (test code = 3257) . Negative - Negati ve POCT U COLOR (test code = 3266) . POCT U APPEAR (test code = 3267) [facility] URINALYSIS W SPECIFIC [id number] 19:20:00* Test Item Value Reference Range Interpretation Comme nts POCT U SP GRAV (test code = 3255) . 1.005-1.025 POCT PH U (test code = 3254) . 5-8 POCT U LEUK EST (test code = 3263) . Negative - N egative POCT U NIT (test code = 3262) . Negative - Negati ve POCT U PROT (test code = 3259) Trace Negative - Negat geneva POCT U GLU (test code = 3256) Neg Negative - Negati ve POCT U KETONE (test code = 3258) . Negative - Neg ative POCT U UROBILI (test code = 3260) . 0.2-1 POCT U BILI (test code = 3261) . Negative - Negat geneva POCT U BLD (test code = 3257) . Negative - Negati ve POCT U COLOR (test code = 3266) . POCT U APPEAR (test code = 3267) [facility] URINALYSIS W SPECIFIC [id number] 19:20:00* Test Item Value Reference Range Interpretation Comme nts POCT U SP GRAV (test code = 3255) . 1.005-1.025 POCT PH U (test code = 3254) . 5-8 POCT U LEUK EST (test code = 3263) . Negative - N egative POCT U NIT (test code = 3262) . Negative - Negati ve POCT U PROT (test code = 3259) Trace Negative - Negat geneva POCT U GLU (test code = 3256) Neg Negative - Negati ve POCT U KETONE (test code = 3258) . Negative - Neg ative POCT U UROBILI (test code = 3260) . 0.2-1 POCT U BILI (test code = 3261) . Negative - Negat geneva POCT U BLD (test code = 3257) . Negative - Negati ve POCT U COLOR (test code = 3266) . POCT U APPEAR (test code = 3267) [facility] W SPECIFIC [id number] 14:41:00* Test Item Value Reference Range Interpretation Comme nts POCT U SP GRAV (test code = 3255) . 1.005-1.025 POCT PH U (test code = 3254) . 5-8 POCT U LEUK EST (test code = 3263) . Negative - N egative POCT U NIT (test code = 3262) . Negative - Negati ve POCT U PROT (test code = 3259) Trace Negative - Negat geneva POCT U GLU (test code = 3256) Neg Negative - Negati ve POCT U KETONE (test code = 3258) . Negative - Neg ative POCT U UROBILI (test code = 3260) . 0.2-1 POCT U BILI (test code = 3261) . Negative - Negat geneva POCT U BLD (test code = 3257) . Negative - Negati ve POCT U COLOR (test code = 3266) POCT U APPEAR (test code = 3267) [facility] HospitalGC & CHLAMYDIA AMPLIFIED [id number] 19:24:00* Test Item Value Reference Range Interpretation Comme nts C. trachomatis Nucleic Acid (test code = 05005-2) Negative Negative N. gonorrhoeae Nucleic Acid (test code = 78333-6) Negative Negative ZOE (test code = ZOE) Reliable results a re dependent on adequate specimen collection. ? A [...] trachomatis and/or Neisseria gonorrhoeae NAAT. Lab Interpretation (test code = 45466-0) Normal [facility] HospitalRUBELLA SCREEN ([place]) [id number] 16:34:00 * Test Item Value Reference Range Interpretation Comme nts Rubella screen IgG (test code = 7887496952) Positive Negative ZOE (test code = ZOE) Positive - Indicat es the patient was exposed to Rubella through infection or vaccination.Negative - Indicates the patient could be susceptible to Rubella infection.Equivocal - A second specimen should be sent. [facility] HospitalVZV ANTIBODY [id number] 16:34:00* Test Item Value Reference Range Interpretation Comme [facility] VZV IgG antibody (test code = 90312-5) Equivocal Negative ZOE (test code = ZOE) Positive - Indicat es the patient was exposed to VZV through infection or vaccination.Negative - Indicates the patient could be susceptible to VZV infection.Equivocal - A second specimen should be sent for testing. [facility] HospitalGAL ONLY - SYPHILIS [id number] 13:39:00* Test Item Value Reference Range Interpretation Comme nts Syphilis IgG/IgM (test code = 08158-3) Non-reactive Non-reactive ZOE (test code = ZOE) Non-reactive - No serologic evidence of T. pallidum infection. Cannot exclude incubating or early syphilis. Submit a second specimen in 2-4 weeks if syphilis is clinically suspected. Equivocal - Further testing to follow. Reactive - Further testing to follow. Lab Interpretation (test code = 42772-3) Normal [facility] HospitalHEPATITIS B SURFACE [id number] 06:17:00 * Test Item Value Reference Range Interpretation Comme nts HBsAg Semi-Quantitative (nickolas t code = 5195-3) Negative Negative [facility], BLOOD [id number] 05:05:42 * Test Item Value Reference Range Interpretation Comme nts ABO & RH (test code = 20) B POSITIVE Performed at [facility] B Laboratory Services - [facility] Blood [address] [id number] Free: [phone] No. [id number] IAT (test code = 1185) Negative Performed at [facility] Laboratory Services - [facility] Blood [address] [address]Spal Free: [phone] No. [id number] [facility] WITH [id number] 04:49:00* Test Item Value Reference Range Interpretation Comme nts HIV Semi-quantitative (test code = 86784-9) Negative Negative ZOE (test code = ZOE) Non-reactive for HIV-1 antigen and HIV-1/HIV-2 antibodies. ?No laboratory evidence of HIV infection. ?Repeat in 2-4 weeks if acute HIV infection is suspected. [facility] [id number] 04:28:00* Test Item Value Reference Range Interpretation Comme nts CoV-2 IgG (test code = 30066-8) Negative Negative Negative result does not rule out acute SARS-CoV-2 infection. Clinical correlation as well as molecular diagnostic test are recommended to rule out acute infection if clinically indicated. ZOE (test code = ZOE) This test has been approved by FDA for emergency use. Lab Interpretation (test code = 86221-1) Normal [facility] [id number] 03:59:00* Test Item Value Reference Range Interpretation Comme nts GLUC 1 HR (test code = 8851209283) 96 mg/dL 120-170 L Lab Interpretation (test cod e = 61068-8) Abnormal [facility] WITH [id number] 03:13:00* Test Item Value Reference Range Interpretation Comme nts WBC (test code = 6690-2) See_Comment [Automated messa ge] The system which generated this result transmitted reference range: 4.30 - 11.10 10*3/?L. The reference range was not used to interpret this result as normal/abnormal. RBC (test code = 789-8) See_Comment L [Automated messa ge] The system which generated this result transmitted reference range: 3.93 - 5.25 10*6/?L. The reference range was not used to interpret this result as normal/abnormal. HGB (test code = 718-7) 12.2 g/dL 11.6-15 HCT (test code = 4544-3) 35.9 % 35.7-45.2 MCV (test code = 787-2) 91.6 fL 80.6-95.5 MCH (test code = 785-6) 31.1 pg 25.9-32.8 MCHC (test code = 786-4) 34.0 g/dL 31.6-35.1 RDW-SD (test code = 67239-9) 39.9 fL 39-49.9 RDW-CV (test code = 788-0) 11.9 % 12-15.5 L PLT (test code = 777-3) See_Comment [Automated messa ge] The system which generated this result transmitted reference range: 166 - 358 10*3/?L. The reference range was not used to interpret this result as normal/abnormal. MPV (test code = 48333-5) 9.1 fL 9.5-12.9 L NRBC/100 WBC (test code = 0707877403) See_Comment [Automated [employer] ssage] The system which generated this result transmitted reference range: 0.0 - 10.0 /100 WBCs. The reference range was not used to interpret this result as normal/abnormal. NRBC x10^3 (test code = 0562907722) <0.01 See_Comment [Automated messa ge] The system which generated this result transmitted reference range: 10*3/?L. The reference range was not used to interpret this result as normal/abnormal. GRAN MAT (NEUT) % (test code = 770-8) 69.1 % IMM GRAN % (test code = 9402623244) 0.40 % LYMPH % (test code = 736-9) 22.6 % MONO % (test code = 5905-5) 5.3 % EOS % (test code = 713-8) 2.1 % BASO % (test code = 706-2) 0.5 % GRAN MAT x10^3(ANC) (test code = 5243254395) 3.94 10*3/uL 1.88-7.09 IMM GRAN x10^3 (test code = 1505429142) <0.03 0-0.06 LYMPH x10^3 (test code = 731-0) 1.29 10*3/uL 1.32-3.29 L MONO x10^3 (test code = 742-7) 0.30 10*3/uL 0.33-0.92 L EOS x10^3 (test code = 711-2) 0.12 10*3/uL 0.03-0.39 BASO x10^3 (test code = 704-7) 0.03 10*3/uL 0.01-0.07 Lab Interpretation (test code = 13689-4) Abnormal [facility] [id number] 20:00:00* Test Item Value Reference Range Interpretation Comme nts POCT PREG (test code = 1605) Positive On board controls acceptable with C Line (test code = 3574) Yes POCT PREG LOT # (test code = 3575) POCT PREG TEST DATE ( test code = 3576) [facility] URINALYSIS W/O SPECIFIC [id number] 20:00:00* Test Item Value Reference Range Interpretation Comme nts POCT PH U (test code = 3254) 7 mg/dl 5-8 POCT U LEUK EST (test code = 3263) Trace Negative - Negative POCT U NIT (test code = 3262) Neg Negative - Negati ve POCT U PROT (test code = 3259) Trace Negative - Negat geneva POCT U GLU (test code = 3256) Neg Negative - Negati ve POCT U KETONE (test code = 3258) None Negative - Neg ative POCT U BLD (test code = 3257) Neg Negative - Negati ve [facility] [id number] 20:00:00* Test Item Value Reference Range Interpretation Comme nts POCT PREG (test code = 1605) Positive On board controls acceptable with C Line (test code = 3574) Yes POCT PREG LOT # (test code = 3575) POCT PREG TEST DATE ( test code = 3576) [facility] URINALYSIS W/O SPECIFIC [id number] 20:00:00* Test Item Value Reference Range Interpretation Comme nts POCT PH U (test code = 3254) 7 mg/dl 5-8 POCT U LEUK EST (test code = 3263) Trace Negative - Negative POCT U NIT (test code = 3262) Neg Negative - Negati ve POCT U PROT (test code = 3259) Trace Negative - Negat geneva POCT U GLU (test code = 3256) Neg Negative - Negati ve POCT U KETONE (test code = 3258) None Negative - Neg ative POCT U BLD (test code = 3257) Neg Negative - Negati ve [facility] [id number] 20:00:00* Test Item Value Reference Range Interpretation Comme nts POCT PREG (test code = 1605) Positive On board controls acceptable with C Line (test code = 3574) Yes POCT PREG LOT # (test code = 3575) POCT PREG TEST DATE ( test code = 357) [facility] URINALYSIS W/O SPECIFIC [id number] 20:00:00* Test Item Value Reference Range Interpretation Comme nts POCT PH U (test code = 3254) 7 mg/dl 5-8 POCT U LEUK EST (test code = 3263) Trace Negative - Negative POCT U NIT (test code = 3262) Neg Negative - Negati ve POCT U PROT (test code = 3259) Trace Negative - Negat geneva POCT U GLU (test code = 3256) Neg Negative - Negati ve POCT U KETONE (test code = 3258) None Negative - Neg ative POCT U BLD (test code = 3257) Neg Negative - Negati ve [facility] [id number] 20:00:00* Test Item Value Reference Range Interpretation Comme nts POCT PREG (test code = 1605) Positive On board controls acceptable with C Line (test code = 3574) Yes POCT PREG LOT # (test code = 3575) POCT PREG TEST DATE ( test code = 3576) [facility] URINALYSIS W/O SPECIFIC [id number] 20:00:00* Test Item Value Reference Range Interpretation Comme nts POCT PH U (test code = 3254) 7 mg/dl 5-8 POCT U LEUK EST (test code = 3263) Trace Negative - Negative POCT U NIT (test code = 3262) Neg Negative - Negati ve POCT U PROT (test code = 3259) Trace Negative - Negat geneva POCT U GLU (test code = 3256) Neg Negative - Negati ve POCT U KETONE (test code = 3258) None Negative - Neg ative POCT U BLD (test code = 3257) Neg Negative - Negati ve [facility] [id number] 20:00:00* Test Item Value Reference Range Interpretation Comme nts POCT PREG (test code = 1605) Positive On board controls acceptable with C Line (test code = 3574) Yes POCT PREG LOT # (test code = 3575) POCT PREG TEST DATE ( test code = 3576) [facility] [id number] 20:00:00* Test Item Value Reference Range Interpretation Comme nts POCT PH U (test code = 3254) 7 mg/dl 5-8 POCT U LEUK EST (test code = 3263) Trace Negative - Negative POCT U NIT (test code = 3262) Neg Negative - Negati ve POCT U PROT (test code = 3259) Trace Negative - Negat geneva POCT U GLU (test code = 3256) Neg Negative - Negati ve POCT U KETONE (test code = 3258) None Negative - Neg ative POCT U BLD (test code = 3257) Neg Negative - Negati ve [facility][U] XRAY PELVIS MIN 3 VWS [id number] 11:51:00Images acquired, not reported on this accession number.[facility]
--- NOTE | 2023-07-12 00:06 | EDPHYS ---
Physician Documentation [facility] Name: Lisbet Vela Age: 37 yrs Sex: Female : 1985 Arrival Date: 07/11/2023 Time: 23:10 Bed IW10 Private MD: ED Physician Gera Trejo HPI: 07/11 00:00 This 37 yrs old Female presents to ER via Ambulatory with complaints of Rash. cp 00:00 The patient's rash thought to be caused by an unknown cause. The rash is located on the cp neck. The rash can be described as burning, itchy. Onset: The symptoms/episode began/occurred 2 week(s) ago. Associated signs and symptoms: Pertinent positives: burning sensation, itching, Pertinent negatives: difficulty breathing, fever, swelling of lips, swelling of throat, swelling of tongue, vomiting. Severity of symptoms: in the emergency department the symptoms are worse. Treatment given at home: Benadryl, OTC hydrocortisone cream. The patient has not experienced similar symptoms in the past. Patient denies rash on back, chest extremities. Denies change in soaps, detergents and/or taking any prescribed meds. Historical: - Allergies: 07/12 00:04 Erythromycin; la4 00:04 Vicodin; la4 - PMHx: 00:04 Asthma; Depression; Bipolar disorder; Liver laceration; Pelvis Fracture; la4 - Immunization history:: Adult Immunizations not immunized, Client reports having NOT received the Covid vaccine. - Social history:: Smoking status: Patient denies any tobacco usage or history of. - Code Status:: Full code. ROS: 00:01 Constitutional: Negative for body aches, chills, fever, poor PO intake, cp 00:01 Eyes: Negative for injury, pain, redness, and discharge, cp 00:01 ENT: Negative for drainage from ear(s), ear pain, sore throat, difficulty swallowing, difficulty handling secretions, 00:01 Cardiovascular: Negative for chest pain, palpitations, 00:01 Respiratory: Negative for cough, shortness of breath, wheezing, 00:01 Abdomen/GI: Negative for abdominal pain, nausea, vomiting, and diarrhea, 00:01 Skin: Positive for rash, of the neck, 00:01 Neuro: Negative for altered mental status, headache, weakness, 00:01 All other systems are negative, Exam: 00:01 Head/Face: Normocephalic, atraumatic. cp 00:01 Constitutional: The patient appears in no acute distress, alert, awake, non-toxic, well developed, well nourished, 00:01 Eyes: Periorbital structures: appear normal, Conjunctiva: normal, no exudate, no injection, Sclera: no appreciated abnormality, Lids and lashes: appear normal, bilaterally, 00:01 ENT: External ear(s): are unremarkable, Nose: is normal, Mouth: Lips: moist, Oral mucosa: pink and intact, moist, Posterior pharynx: Airway: no evidence of obstruction, patent, 00:01 Neck: External neck: erythema, rash, that is moderate, of the neck, plaque like, 00:01 Cardiovascular: Rate: normal, Rhythm: regular, 00:01 Respiratory: the patient does not display signs of respiratory distress, Respirations: normal, no use of accessory muscles, no retractions, labored breathing, is not present, Breath sounds: are clear throughout, no decreased breath sounds, no stridor, no wheezing, 00:01 Abdomen/GI: Exam negative for discomfort, distension, guarding, Vital Signs: 07/11 23:30 BP 135 / 99; Pulse 60; Resp 20; Temp 97.8; Pulse Ox 100% on R/A; Weight 112.1 kg; la4 Height 5 ft. 2 in. ; 23:30 Body Mass Index 45.20 (112.10 kg, 157.48 cm) la4 [place] Coma Score: 07/12 00:06 Eye Response: spontaneous(4). Motor Response: obeys commands(6). Verbal Response: la4 oriented(5). Total: 15. MDM: 00:05 Patient medically screened. cp 00:05 Data reviewed: vital signs, nurses notes, and as a result, I will discharge patient. cp 00:05 Differential diagnosis: dermatitis, hives, cellulitis. I considered the following cp discharge prescriptions or medication management in the emergency department Medications were administered in the Emergency Department. See MAR. 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 Administered Medications: 07/11 23:59 CANCELLED (Physician Discretion): [id number] mg PO once cp 07/12 00:09 Drug: MethylPREDNISolone Sodium Succinate IM 125 mg IM once Route: IM; Site: right la4 ventrogluteal; Disposition Summary: 07/12/23 00:05 Discharge Ordered Notes: Location: Home cp Problem: new cp Symptoms: have improved cp Condition: Stable cp Diagnosis - Dermatitis, unspecified cp Followup: cp - With: Private Physician - When: 2 - 3 days - Reason: Recheck today's complaints Discharge Instructions: - Discharge Summary Sheet cp - Atopic Dermatitis cp Forms: - Medication Reconciliation Form cp - Thank You Letter cp - Antibiotic Education cp - Prescription Opioid Use cp - Patient Portal Instructions cp - Leadership Thank You Letter cp Prescriptions: - Zyrtec 10 mg Oral Tablet - take 1 tablet ORAL route once daily As needed; 20 tablet; Refills: 0, Product cp Selection Permitted - Triamcinolone Acetonide 0.5 % Topical cream - apply 1 application TOPICAL route 2 times per day As needed; 30 gram; Refills: cp 0, Product Selection Permitted - Prednisone 20 mg Oral Tablet - take 2 tablets ORAL route once daily for 5 days; 10 tablet; Refills: 0, Product cp Selection Permitted Addendum: 07/13/2023 03:05 Co-signature as Attending Physician, Gera Trejo MD I agree with the assessment s p4 and plan of care. I reviewed the patient's care provided by the Advanced Practice Provider and agree with the diagnosis and treatment plan. Signatures: Donell Arndt PA PA cp Potepalov, Sergey, MD MD sp4 Cady Marquez RN RN la4 Corrections: (The following items were deleted from the chart) 07/11 23:59 23:39 predniSONE PO 60 mg PO once ordered. cp cp
--- NOTE | 2023-07-12 00:06 | ER ---
Nurse's Notes [facility] Name: Lisbet Vela Age: 37 yrs Sex: Female : 1985 Arrival Date: 07/11/2023 Time: 23:10 Bed IW10 Private MD: Diagnosis: Dermatitis, unspecified Presentation: 07/11 23:30 Chief complaint: Patient states: Rash spreading around neck for the past 2 weeks, la4 reports rash to be itchy and burning and painful to touch. 23:30 Coronavirus screen: Vaccine status: Patient reports receiving the 1st dose of the Covid la4 vaccine. Ebola Screen: Patient negative for fever greater than or equal to 101.5 degrees Fahrenheit, and additional compatible Ebola Virus Disease symptoms Patient denies exposure to infectious person. Patient denies travel to an Ebola-affected area in the 21 days before illness onset. No symptoms or risks identified at this time. Initial Sepsis Screen: Does the patient meet any 2 criteria? No. Patient's initial sepsis screen is negative. Does the patient have a suspected source of infection? No. Patient's initial sepsis screen is negative. Risk Assessment: Do you want to hurt yourself or someone else? Patient reports no desire to harm self or others. Onset of symptoms was July 04, 2023. 23:30 Method Of Arrival: Ambulatory la4 23:30 Acuity: ARGENIS 5 la4 Triage Assessment: 07/12 00:04 General: Appears in no apparent distress. Behavior is calm, cooperative, appropriate la4 for age. Pain: Complains of pain in neck Pain does not radiate. Pain currently is 4 out of 10 on a pain scale. Quality of pain is described as burning, itching. EENT: No deficits noted. No signs and/or symptoms were reported regarding the EENT system. Neuro: No deficits noted. Fry Agitation-Sedation Scale (RASS): 0 - Alert and Calm. Cardiovascular: No deficits noted. Respiratory: No deficits noted. GI: No deficits noted. : No deficits noted. Derm: Skin is intact, Skin is dry, Skin is pink, warm \T\ dry. Skin temperature is warm Rash noted that is itchy, red, on neck. Historical: - Allergies: 00:04 Erythromycin; la4 00:04 Vicodin; la4 - PMHx: 00:04 Asthma; Depression; Bipolar disorder; Liver laceration; Pelvis Fracture; la4 - Immunization history:: Adult Immunizations not immunized, Client reports having NOT received the Covid vaccine. - Social history:: Smoking status: Patient denies any tobacco usage or history of. - Code Status:: Full code. Screenin:06 [facility] ED Fall Risk Assessment (Adult) History of falling in the last 3 months, la4 including since admission No falls in past 3 months (0 pts) Confusion or Disorientation No (0 pts) Intoxicated or Sedated No (0 pts) Impaired Gait No (0 pts) Mobility Assist Device Used No (0 pt) Altered Elimination No (0 pt) Score/Fall Risk Level 0 - 2 = Low Risk. Abuse screen: Denies threats or abuse. Denies injuries from another. Nutritional screening: No deficits noted. Tuberculosis screening: No symptoms or risk factors identified. Assessment: 00:06 Reassessment: No changes from previously documented assessment. No change from triage la4 assessment. Derm: Rash noted that is red, on neck. Vital Signs: 07/11 23:30 BP 135 / 99; Pulse 60; Resp 20; Temp 97.8; Pulse Ox 100% on R/A; Weight 112.1 kg; la4 Height 5 ft. 2 in. ; 23:30 Body Mass Index 45.20 (112.10 kg, 157.48 cm) la4 [place] Coma Score: 07/12 00:06 Eye Response: spontaneous(4). Motor Response: obeys commands(6). Verbal Response: la4 oriented(5). Total: 15. ED Course: 07/11 23:22 Patient arrived in ED. gm2 23:24 Donell Arndt PA is PHCP. cp 23:24 Gera Trejo MD is Attending Physician. cp 07/12 00:04 Triage completed. la4 00:04 Arm band placed on right wrist. la4 00:06 Patient has correct armband on for positive identification. Provided Education on: Plan la4 of care. 00:06 No provider procedures requiring assistance completed. Patient did not have IV access la4 during this emergency room visit. Administered Medications: 07/11 23:59 CANCELLED (Physician Discretion): [id number] mg PO once cp 07/12 00:09 Drug: MethylPREDNISolone Sodium Succinate IM 125 mg IM once Route: IM; Site: right la4 ventrogluteal; Medication: 00:06 VIS not applicable for this client. la4 Outcome: 00:05 Discharge ordered by . dixie 00:06 Discharged to home ambulatory, la4 00:06 Condition: stable 00:06 Discharge instructions given to patient, Instructed on discharge instructions, follow up and referral plans. medication usage, Demonstrated understanding of instructions, follow-up care, medications, Prescriptions given X 1, 00:16 Patient left the ED. la4 Signatures: Donell Arndt PA PA cp Mitchell, Ginger 2 Cady Marquez, RN RN la4
[2023-07-12 04:28] VITALS: BP 135/99; TEMP 97.8; O2SAT 100
== END ==
LOC: ER 23:10
DX: L30.9 Dermatitis, unspecified (principal); Z88.3 Allergy status to other anti-infective agents; Z88.5 Allergy status to narcotic agent; Z28.310 Unvaccinated for COVID-19
CPT/HCPCS: 96372; 99284

== ENCOUNTER → 2023-09-04 | Emergency (ER) | payer OTHER ==
[~2023-09-04] MED LIST changes: +IBUPROFEN 400 MG TAB ONE; -METHYLPREDNISOLONE 125 MG INJ ONE; +predniSONE 20 MG TAB ONE
--- OUTSIDE RECORDS SUMMARY | 2023-09-04 07:00 | XMS REPORT | Continuity of Care Document ---
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 00:00: 00 Yes TAKE ONE CAPSULE BY MOUTH EVERY DAY Univers [facility] omeprazole 20 mg capsule 12-03 00:00: 00 Yes TAKE ONE CAPSULE BY MOUTH EVERY DAY Univers [facility] omeprazole 20 mg capsule 12-03 00:00: 00 Yes TAKE ONE CAPSULE BY MOUTH EVERY DAY [facility] omeprazole 20 mg capsule 12-03 00:00: 00 Yes TAKE ONE CAPSULE BY MOUTH EVERY DAY [facility] omeprazole 20 mg capsule 12-03 00:00: 00 Yes TAKE ONE CAPSULE BY MOUTH EVERY DAY [facility] Vital Signs Vital Name Observation Time Observation Value Comments S ource Systolic blood pressure 2020-09-08 01:30:00 121 mm[Hg] [facility] Diastolic blood pressure 2020-09-08 01:30:00 77 mm[Hg] [facility] Heart rate 2020-09-08 01:30:00 73 /min [facility] Body temperature 2020-09-08 01:30:00 36.67 Monserrat [facility] Respiratory rate 2020-09-08 01:30:00 18 /min [facility] Oxygen saturation in Arterial blood by Pulse oximetry 2020-09-07 13:10:00 98 /min [facility] Body height 2020-09-06 17:39:00 157.5 cm [facility] Body weight 2020-09-06 17:39:00 127.007 kg [facility] BMI 2020-09-06 17:39:00 51.21 kg/m2 [facility] Systolic blood pressure 2020-08-30 16:58:00 111 mm[Hg] [facility] Diastolic blood pressure 2020-08-30 16:58:00 71 mm[Hg] [facility] Heart rate 2020-08-30 16:58:00 72 /min [facility] Body temperature 2020-08-30 16:58:00 36.39 Monserrat [facility] Respiratory rate 2020-08-30 16:58:00 16 /min [facility] Body height 2020-08-30 16:58:00 157.5 cm [facility] Body weight 2020-08-30 16:58:00 130.381 kg [facility] BMI 2020-08-30 16:58:00 52.57 kg/m2 [facility] Systolic blood pressure 2020-08-21 19:41:00 107 mm[Hg] [facility] Diastolic blood pressure 2020-08-21 19:41:00 67 mm[Hg] [facility] Heart rate 2020-08-21 19:41:00 73 /min Un[facility] Body temperature 2020-08-21 19:41:00 36.5 Monserrat [facility] Respiratory rate 2020-08-21 19:41:00 16 /min [facility] Body height 2020-08-21 19:41:00 157.5 cm [facility] Body weight 2020-08-21 19:41:00 127.659 kg [facility] BMI 2020-08-21 19:41:00 51.48 kg/m2 [facility] Systolic blood pressure 2020-08-07 22:01:00 110 mm[Hg] [facility] Diastolic blood pressure 2020-08-07 22:01:00 65 mm[Hg] [facility] Heart rate 2020-08-07 22:01:00 70 /min Un[facility] Body temperature 2020-08-07 22:01:00 36.5 Monserrat [facility] Respiratory rate 2020-08-07 22:01:00 16 /min [facility] Body height 2020-08-07 22:01:00 157.5 cm [facility] Body weight 2020-08-07 22:01:00 129.53 kg [facility] BMI 2020-08-07 22:01:00 52.23 kg/m2 [facility] Systolic blood pressure 2020-06-27 22:02:00 98 mm[Hg] [facility] Diastolic blood pressure 2020-06-27 22:02:00 63 mm[Hg] [facility] Heart rate 2020-06-27 22:02:00 80 /min [facility] temperature 2020-06-27 22:02:00 36.22 Monserrat [facility] Respiratory rate 2020-06-27 22:02:00 16 /min [facility] Body height 2020-06-27 22:02:00 157.5 cm [facility] weight 2020-06-27 22:02:00 123.86 kg [facility] 2020-06-27 22:02:00 49.94 kg/m2 [facility] Systolic blood pressure 2020-06-01 19:15:00 109 mm[Hg] [facility] Diastolic blood pressure 2020-06-01 19:15:00 72 mm[Hg] [facility] Heart rate 2020-06-01 19:15:00 73 /min [facility] Body temperature 2020-06-01 19:15:00 36.17 Monserrat [facility] Respiratory rate 2020-06-01 19:15:00 16 /min [facility] Body height 2020-06-01 19:15:00 157.5 cm [facility] Body weight 2020-06-01 19:15:00 121.621 kg [facility] BMI 2020-06-01 19:15:00 49.04 kg/m2 [facility] Systolic blood pressure 2020-04-23 14:40:00 120 mm[Hg] [facility] Diastolic blood pressure 2020-04-23 14:40:00 75 mm[Hg] [facility] Heart rate 2020-04-23 14:40:00 76 /min Unive [facility] Body temperature 2020-04-23 14:40:00 36.11 Monserrat [facility] Respiratory rate 2020-04-23 14:40:00 16 /min [facility] Body height 2020-04-23 14:40:00 157.5 cm [facility] Body weight 2020-04-23 14:40:00 118.162 kg [facility] BMI 2020-04-23 14:40:00 47.65 kg/m2 [facility] Systolic blood pressure 2020-04-23 14:40:00 120 mm[Hg] [facility] Diastolic blood pressure 2020-04-23 14:40:00 75 mm[Hg] [facility] Heart rate 2020-04-23 14:40:00 76 /min Un[facility] Body temperature 2020-04-23 14:40:00 36.11 Monserrat [facility] Respiratory rate 2020-04-23 14:40:00 16 /min [facility] Body height 2020-04-23 14:40:00 157.5 cm [facility] Body weight 2020-04-23 14:40:00 118.162 kg [facility] BMI 2020-04-23 14:40:00 47.65 kg/m2 [facility] Systolic blood pressure 2020-04-09 18:54:00 109 mm[Hg] [facility] Diastolic blood pressure 2020-04-09 18:54:00 69 mm[Hg] [facility] Heart rate 2020-04-09 18:54:00 60 /min Unive [facility] Body temperature 2020-04-09 18:54:00 36.5 Monserrat [facility] Respiratory rate 2020-04-09 18:54:00 16 /min [facility] Body height 2020-04-09 18:54:00 157.5 cm [facility] Body weight 2020-04-09 18:54:00 115.837 kg [facility] BMI 2020-04-09 18:54:00 46.71 kg/m2 [facility] Systolic blood pressure 2020-04-09 18:54:00 109 mm[Hg] [facility] Diastolic blood pressure 2020-04-09 18:54:00 69 mm[Hg] [facility] Heart rate 2020-04-09 18:54:00 60 /min Un[facility] Body temperature 2020-04-09 18:54:00 36.5 Monserrat [facility] Respiratory rate 2020-04-09 18:54:00 16 /min [facility] Body height 2020-04-09 18:54:00 157.5 cm [facility] Body weight 2020-04-09 18:54:00 115.837 kg [facility] BMI 2020-04-09 18:54:00 46.71 kg/m2 [facility] Systolic blood pressure 2020-03-13 20:09:00 101 mm[Hg] [facility] Diastolic blood pressure 2020-03-13 20:09:00 72 mm[Hg] [facility] Heart rate 2020-03-13 20:09:00 61 /min [facility] Body temperature 2020-03-13 20:09:00 36 Monserrat [facility] Respiratory rate 2020-03-13 20:09:00 16 /min [facility] Body height 2020-03-13 20:09:00 157.5 cm [facility] Body weight 2020-03-13 20:09:00 94.15 kg [facility] BMI 2020-03-13 20:09:00 37.96 kg/m2 [facility] Procedures Procedure Date / Time Performed Performing Clinician Source ADC OR FE ONLY - RPR 2020-09-07 22:22:00 Adum, Sushila Chamorro [facility] CBC WITH DIFF 2020-09-07 09:26:00 Adum, Sushila Jama [facility] VENOUS CORD GAS 2020-09-06 23:13:00 Adum, Sushila Alvarez [facility] HB ABO GROUPING 2020-09-06 13:15:00 Adum, Sushila Alvarez [facility] CBC WITH DIFF 2020-09-06 13:14:00 Adum, Sushila Jama [facility] HEPATITIS B SURFACE ANTIGEN 2020-09-06 13:14:00 Adum, Sushila Chamorro [facility] HIV 1/2 AG-AB WITH REFLEX 2020-09-06 13:14:00 Adum, Sushila Chamorro [facility] ADC ONLY - FERN TEST 2020-09-06 11:58:00 Adum, Sushila Chamorro [facility] COVID-19 (ID NOW RAPID TESTING) 2020-09-06 11:51:00 Adum, Sushila Chamorro [facility] ASSIGNMENT OF BENEFITS 2020-09-06 11:28:48 Docto r Unassigned, Ruma [facility] NOTICE OF PRIVACY PRACTICES 2020-09-06 11:26:23 Doctor Unassigned, Ruma [facility] CONSENT/REFUSAL FOR DIAGNOSIS AND TREATMENT 2020-09-06 11:26:05 Doctor Unassigned, Ruma [facility] CONSENT/REFUSAL FOR DIAGNOSIS AND TREATMENT 2020-09-06 11:26:04 Doctor Unassigned, Ruma [facility] POCT URINALYSIS 2020-08-30 19:09:00 Lynne Dinh [facility] POCT URINALYSIS 2020-08-21 19:44:00 Lynne Dinh [facility] CBC WITH DIFF 2020-08-21 19:40:00 Lynne Dinh [facility] SARS-COV-2 IGG 2020-08-21 19:40:00 Lynne Dinh [facility] POCT URINALYSIS 2020-06-27 22:18:00 Lynne Dinh [facility] TDAP VACCINE, >11 YRS, IM 2020-06-27 21:51:58 Lynne Dinh [facility] AUTHORIZATION TO RELEASE PHI TO [facility] 2020-06-15 06:01:00 Doctor Unassigned, Ruma [facility] POCT URINALYSIS 2020-06-01 19:20:00 Lynne Dinh [facility] SECOND AND THIRD TRIMESTER ULTRASOUND 2020-04-27 13:11:00 Lynne Dinh [facility] SA[facility] ULTRASOUND 2020-04-27 05:01:00 Doc tor Unassigned, Ruma [facility] POCT URINALYSIS 2020-04-23 14:41:00 Lynne Dinh [facility] GC & CHLAMYDIA AMPLIFIED ASSAY 2020-03-13 21:19:00 Lynne Dinh [facility] GLUCOSE 1 HOUR POST PRANDIAL 2020-03-13 21:10:00 Lynne Dinh [facility] CBC WITH DIFF 2020-03-13 21:10:00 Lynne Dinh [facility] RUBELLA SCREEN IGG 2020-03-13 21:10:00 Angela Dinh [facility] VZV ANTIBODY SCREEN 2020-03-13 21:10:00 Dejan Dinh [facility] HEPATITIS B SURFACE ANTIGEN 2020-03-13 21:10:00 Lynne Dinh [facility] HIV 1/2 AG-AB WITH REFLEX 2020-03-13 21:10:00 Lynne Dinh [facility] GALV ONLY - SYPHILIS IGG/IGM 2020-03-13 21:10:00 Lynne Dinh [facility] SARS-COV-2 IGG 2020-03-13 21:10:00 Lynne Dinh [facility] HB ABO GROUPING 2020-03-13 21:05:00 Lynne Dinh [facility] POCT TEST 2020-03-13 20:00:00 Dejan Dinh [facility] POCT URINALYSIS W/O SPECIFIC GRAVITY 2020-03-13 20:00:00 Lynne Dinh [facility] ASSIGNMENT OF BENEFITS 2020-03-13 19:07:48 Docto r Unassigned, Ruma [facility] [U] XRAY PELVIS MIN 3 VWS [id number] 2018-11-15 00:00:00 [facility] [U] XRAY PELVIS MIN 3 VWS [id number] 2018-10-08 00:00:00 [facility] Encounters Start Date/Time End Date/Time Encounter Type Admission Type Attending Clinicians Care Facility Care Department Encounter ID Source 2021-04-28 05:07:22 Outpatient P [facility] [id number] [facility] 2022-11-27 14:48:12 2022-11-27 14:48:12 Outpatient [facility] [id number] Sherif Bdaillo 2020-10-09 00:00:00 2020-10-09 00:00:00 Telephone Lynne Dinh [facility] [id number] 350.1.13.10 4.2.7.2.686 [id number] [facility] 2020-10-08 09:30:00 2020-10-08 09:30:00 Outpatient R LYNNE DINH [facility] [id number] [facility] 2020-09-10 00:00:00 2020-09-10 00:00:00 Telephone Lynne Dinh [facility] 1.2.840.114 350.1.13.10 4.2.7.2.686 [id number] [facility] 2020-09-06 05:26:00 2020-09-08 09:50:00 Hospital Encounter Ty Sushila Pedro Pablo [facility] [id number] 350.1.13.10 4.2.7.2.686 [id number] [facility] 2020-09-06 00:00:00 2020-09-06 00:00:00 Orders Only Doctor Unassigned, Ruma [facility] 1.2.840.114 350.1.13.10 4.2.7.2.686 [id number] [facility] 2020-08-30 10:46:35 2020-08-30 11:15:40 Routine Visit Lynne Dinh [facility] 1.840.114 350.1.13.10 4.2.7.2.686 [id number] [facility] 2020-08-30 10:45:00 2020-08-30 10:45:00 Outpatient R LYNNE DINH [facility] [id number] [facility] 2020-08-28 15:00:00 2020-08-28 15:00:00 Outpatient R LYNNE DINH [facility] [id number] [facility] 2020-08-27 00:00:00 2020-08-27 00:00:00 Abstract Fabrizio Lynne Telles [facility] 1.840.114 350.1.13.10 4.2.7.2.686 [id number] [facility] 2020-08-24 14:30:00 2020-08-24 14:30:00 Outpatient R LYNNE DINH [facility] [id number] [facility] 2020-08-24 07:55:46 2020-08-24 08:10:46 Laboratory Only Lab, NgaRmchp Namfadyanthony Lynne Telles [facility] 1.0.114 350.1.13.10 4.2.7.2.686 [id number] [facility] 2020-08-23 00:00:00 2020-08-23 00:00:00 Telephone Lynne Dinh [facility] 1.0.114 350.1.13.10 4.2.7.2.686 [id number] [facility] 2020-08-22 15:20:40 2020-08-22 15:50:40 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, Ki Degroot [facility] .0.114 350.1.13.10 4.2.7.2.686 [id number] [facility] 2020-08-22 15:15:00 2020-08-22 15:15:00 Outpatient R [facility] [id number] [facility] 2020-08-22 00:00:00 2020-08-22 00:00:00 Telephone Lynne Dinh [facility] 1.840.114 350.1.13.10 4.2.7.2.686 [id number] [facility] 2020-08-21 13:16:09 2020-08-21 14:23:26 Routine Visit FabrizioLynne [facility] 1..840.114 350.1.13.10 4.2.7.2.686 [id number] [facility] 2020-08-21 13:15:00 2020-08-21 13:15:00 Outpatient R LYNNE DINH [facility] [id number] [facility] 2020-08-07 15:44:41 2020-08-07 16:28:06 Routine Visit NamLynne jackson [facility] ..840.114 350.1.13.10 4.2.7.2.686 [id number] [facility] 2020-08-07 15:45:00 2020-08-07 15:45:00 Outpatient R LYNNE DINH [facility] [id number] [facility] 2020-08-01 08:30:00 2020-08-01 08:30:00 Outpatient R LYNNE DINH [facility] [id number] [facility] 2020-07-30 14:30:00 2020-07-30 14:30:00 Outpatient R LYNNE DINH [facility] [id number] [facility] 2020-07-12 10:45:00 2020-07-12 10:45:00 Outpatient R LYNNE DINH [facility] [id number] [facility] 2020-06-28 00:00:00 2020-06-28 00:00:00 Abstract Lynne Dinh [facility] 1..840.114 350.1.13.10 4.2.7.2.686 [id number] [facility] 2020-06-27 15:46:33 2020-06-27 16:28:54 Routine Visit Lynne Dinh [facility] 1..114 350.1.13.10 4.2.7.2.686 [id number] [facility] 2020-06-27 15:13:22 2020-06-27 15:43:22 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, Francois Dudley [facility] 1.114 350.1.13.10 4.2.7.2.686 [id number] [facility] 2020-06-27 15:00:00 2020-06-27 15:00:00 Outpatient P [facility] [id number] [facility] 2020-06-18 14:00:00 2020-06-18 14:00:00 Outpatient R LYNNE DINH [facility] [id number] [facility] 2020-06-15 09:00:00 2020-06-15 09:00:00 Outpatient R LYNNE DINH [facility] [id number] [facility] 2020-06-15 00:00:00 2020-06-15 00:00:00 Orders Only Doctor Unassigned, Ruma [facility] 1. 350.1.13.10 4.2.7.2.686 [id number] [facility] 2020-06-11 00:00:00 2020-06-11 00:00:00 Patient Secure Msg Doctor Unassigned, Ruma [facility] 1.114 350.1.13.10 4.2.7.2.686 [id number] [facility] 2020-06-04 08:15:00 2020-06-04 08:15:00 Outpatient R LYNNE DINH [facility] [id number] [facility] 2020-06-01 12:57:12 2020-06-01 13:40:52 Routine Visit Lynne Dinh [facility] 1.2.840.114 350.1.13.10 4.2.7.2.686 [id number] [facility] 2020-06-01 12:45:00 2020-06-01 12:45:00 Outpatient R LYNNE DINH [facility] [id number] [facility] 2020-05-30 13:00:00 2020-05-30 13:00:00 Outpatient R LYNNE DINH [facility] [id number] [facility] 2020-05-30 00:00:00 2020-05-30 00:00:00 Abstract Lynne Dinh [facility] 1..840.114 350.1.13.10 4.2.7.2.686 [id number] [facility] 2020-05-29 11:32:08 2020-05-29 12:44:56 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 1, [facility] Us Room Alecia Rader [facility] 1..840.114 350.1.13.10 4.2.7.2.686 [id number] [facility] 2020-05-29 11:30:00 2020-05-29 11:30:00 Outpatient P [facility] [id number] [facility] 2020-05-28 11:30:00 2020-05-28 11:30:00 Outpatient P [facility] [id number] [facility] 2020-05-23 08:15:00 2020-05-23 08:15:00 Outpatient R LYNNE DINH [facility] [id number] [facility] 2020-05-22 00:00:00 2020-05-22 00:00:00 Abstract Lynne Dinh [facility] 1.2.840.114 350.1.13.10 4.2.7.2.686 [id number] [facility] 2020-05-21 10:30:00 2020-05-21 10:30:00 Outpatient R LYNNE DINH [facility] [id number] [facility] 2020-05-04 00:00:00 2020-05-04 00:00:00 Abstract Concepcion Garcia [facility] 1.2.840.114 350.1.13.10 4.2.7.2.686 [id number] [facility] 2020-05-02 13:00:00 2020-05-02 13:00:00 Outpatient SHASHA SINGH [facility] [id number] [facility] 2020-05-01 00:00:00 2020-05-01 00:00:00 Abstract Lynne Dinh [facility] 1.2840.114 350.1.13.10 4.2.7.2.686 [id number] [facility] 2020-05-01 00:00:00 2020-05-01 00:00:00 Abstract Lynne Dinh [facility] 1.2840.114 350.1.13.10 4.2.7.2.686 [id number] 2020-04-27 08:48:19 2020-04-27 10:49:18 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 3, [facility] Us Room Speedy Khalil [facility] 1.2840.114 350.1.13.10 4.2.7.2.686 [id number] [facility] 2020-04-27 08:48:19 2020-04-27 10:03:19 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 3, [facility] Us [facility] 1.2.84.114 350.1.13.10 4.2.7.2.686 [id number] 2020-04-27 09:00:00 2020-04-27 09:00:00 Outpatient P [facility] [id number] [facility] 2020-04-27 00:00:00 2020-04-27 00:00:00 Orders Only Doctor Unassigned, Ruma [facility] 1.84114 350.1.13.10 4.2.7.2.686 [id number] [facility] 2020-04-25 08:00:00 2020-04-25 08:00:00 Outpatient P [facility] [id number] [facility] 2020-04-24 09:00:00 2020-04-24 09:00:00 Outpatient R LYNNE DINH [facility] [id number] [facility] 2020-04-23 09:24:58 2020-04-23 10:15:07 Routine Visit Lynne Dinh [facility] [id number] [facility] 2020-04-23 09:24:58 2020-04-23 10:15:07 Routine Visit Lynne Dinh [facility] 1.84.114 350.1.13.10 4.2.7.2.686 [id number] 107 [id number] 2020-04-23 09:30:00 2020-04-23 09:30:00 Outpatient R LYNNE DINH [facility] [id number] [facility] 2020-04-09 13:36:15 2020-04-09 14:26:16 [facility] 1.840.114 350.1.13.10 4.2.7.2.686 [id number] 107 [id number] [facility] 2020-04-09 13:36:15 2020-04-09 14:26:16 Routine Visit Faculty, Marvin Olvera [facility] 1.2.840.114 350.1.13.10 4.2.7.2.686 [id number] 2020-04-09 13:00:00 2020-04-09 13:00:00 Outpatient R [facility] [id number] [facility] 2020-03-26 13:30:00 2020-03-26 13:30:00 Outpatient R [facility] [id number] [facility] 2020-03-14 14:32:03 2020-03-14 15:22:32 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 Lab, Lynne Mcdermott [facility] 1.2.840.114 350.1.13.10 4.2.7.2.686 [id number] 107 [id number] [facility] 2020-03-14 14:32:03 2020-03-14 15:22:32 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 Lab, Malcom [facility] 1.2.840.114 350.1.13.10 4.2.7.2.686 [id number] 107 [id number] 2020-03-13 14:50:27 2020-03-14 14:44:47 Initial Visit Lynne Dinh [facility] 1.2.840.114 350.1.13.10 4.2.7.2.686 [id number] 107 [id number] [facility] 2020-03-14 14:00:00 2020-03-14 14:00:00 Outpatient R LYNNE DINH [facility] [id number] [facility] 2020-03-14 09:00:2020-03-14 09:00:00 Outpatient R [facility] [id number] [facility] 2020-03-13 14:00:00 2020-03-13 14:00:00 Outpatient R LYNNE DINH [facility] [id number] [facility] 2020-03-13 13:30:00 2020-03-13 13:30:00 Outpatient R LYNNE DINH [facility] [id number] [facility] 2020-03-13 00:00:00 2020-03-13 00:00:00 Orders Only Doctor Unassigned, Ruma [facility] 1.2.840.114 350.1.13.10 4.2.7.2.686 [id number] [facility] 2018-11-24 09:30:00 2018-11-24 09:30:00 Appointmen t; GAR[facility] YI, [facility] Y[facility], [facility]T COATER [facility] [id number] [facility] 2018-10-13 09:30:00 2018-10-13 09:30:00 Appointmen t; GARFIELD YI TABLET COATER G[facility] YI, TABLET COATER [facility] [id number] [facility] 2018-09-15 11:00:00 2018-09-15 11:00:00 Appointmen t; GARFIELD YI NP [place], AMY, TABLET COATER [facility] [id number] [facility] Results Test Description Test Time Test Comments Results Result Co mments Source [facility] with [id number] 09:36:12* Test Item Value Reference Range Interpretation [...] 32.8 g/dL 31.6-35.1 RDW-SD (test code = 85358-6) 44.0 fL 39.0-49.9 RDW-CV (test code = 788-0) 14.0 % 12.0-15.5 PLT (test code = 777-3) See_Comment [Automated classmarketsa ge] The system which generated this result transmitted reference range: 166 - 358 10*3/?L. The reference range was not used to interpret this result as normal/abnormal. MPV (test code = 26715-2) 8.7 fL 9.5-12.9 L NRBC/100 WBC (test code = 3491887138) See_Comment [Automated Youboox ssage] The system which generated this result transmitted reference range: 0.0 - 10.0 /100 WBCs. The reference range was not used to interpret this result as normal/abnormal. NRBC x10^3 (test code = 6482437830) <0.01 See_Comment [Automated classmarketsa ge] The system which generated this result transmitted reference range: 10*3/?L. The reference range was not used to interpret this result as normal/abnormal. GRAN MAT (NEUT) % (test code = 770-8) 79.3 % IMM GRAN % (test code = 2007132516) 0.50 % LYMPH % (test code = 736-9) 14.2 % MONO % (test code = 5905-5) 4.9 % EOS % (test code = 713-8) 1.0 % BASO % (test code = 706-2) 0.1 % GRAN MAT x10^3(ANC) (test code = 7073212293) 7.89 10*3/uL 1.88-7.09 H IMM GRAN x10^3 (test code = 1192251262) 0.05 10*3/uL 0.00-0.06 LYMPH x10^3 (test code = 731-0) 1.41 10*3/uL 1.32-3.29 MONO x10^3 (test code = 742-7) 0.49 10*3/uL 0.33-0.92 EOS x10^3 (test code = 711-2) 0.10 10*3/uL 0.03-0.39 BASO x10^3 (test code = 704-7) <0.03 0.01-0.07 Lab Interpretation (test code = 14114-6) Abnormal [facility] [id number] 23:25:36* Test Item Value Reference Range Interpretation Comme nts VENOUS BASE EXCESS, CORD (test code = 5857495728) mEq/L VENOUS PH, CORD (test code = 6691932602) 7.25-7.45 VENOUS PC02, CORD (test code = 5190100403) See_Comment [Automated messa ge] The system which generated this result transmitted reference range: 27 - 49 mmHg. The reference range was not used to interpret this result as normal/abnormal. VENOUS PO2, CORD (test code = 9238105838) See_Comment [Automated me ssage] The system which generated this result transmitted reference range: 17 - 41 mmHg. The reference range was not used to interpret this result as normal/abnormal. VENOUS BICARBONATE, CORD (test code = 9081170637) See_Comment [Automated messa ge] The system which generated this result transmitted reference range: 12 - 29 mEq/L. The reference range was not used to interpret this result as normal/abnormal. [facility]berg[facility]atitis B Surface [id number] 16:58:31 * Test Item Value Reference Range Interpretation Comme [facility] HBsAg Semi-Quantitative (nickolas t code = 5195-3) Negative Negative [facility] AG-AB WITH [id number] 14:47:15* Test Item Value Reference Range Interpretation Comme nts HIV Semi-quantitative (test code = 92423-8) Negative Negative ZOE (test code = ZOE) Non-reactive for HIV-1 antigen and HIV-1/HIV-2 antibodies. ?No laboratory evidence of HIV infection. ?Repeat in 2-4 weeks if acute HIV infection is suspected. [facility]berg[facility] and Screen - ONCE [id number] 14:21:06 * Test Item Value Reference Range Interpretation Comme nts ABO & RH (test code = 20) B Positive Performed at [facility] Laboratory [facility] - [facility] Blood [address] [place] [address] Free: [phone] No. [id number] IAT (test code = 1185) Negative Performed at [facility] Laboratory [facility] - [facility] Blood [place] [id number] Free: [phone] No. [id number] [facility] with [id number] 13:28:10* Test Item Value Reference Range Interpretation [...] 32.8 g/dL 31.6-35.1 RDW-SD (test code = 24345-6) 42.7 fL 39.0-49.9 RDW-CV (test code = 788-0) 13.7 % 12.0-15.5 PLT (test code = 777-3) See_Comment [Automated messa ge] The system which generated this result transmitted reference range: 166 - 358 10*3/?L. The reference range was not used to interpret this result as normal/abnormal. MPV (test code = 72688-0) 8.8 fL 9.5-12.9 L NRBC/100 WBC (test code = 4941378701) See_Comment [Automated me ssage] The system which generated this result transmitted reference range: 0.0 - 10.0 /100 WBCs. The reference range was not used to interpret this result as normal/abnormal. NRBC x10^3 (test code = 8098235261) <0.01 See_Comment [Automated messa ge] The system which generated this result transmitted reference range: 10*3/?L. The reference range was not used to interpret this result as normal/abnormal. GRAN MAT (NEUT) % (test code = 770-8) 76.0 % IMM GRAN % (test code = 9753747447) 0.70 % LYMPH % (test code = 736-9) 16.5 % MONO % (test code = 5905-5) 5.5 % EOS % (test code = 713-8) 1.1 % BASO % (test code = 706-2) 0.2 % GRAN MAT x10^3(ANC) (test code = 2463164046) 6.39 10*3/uL 1.88-7.09 IMM GRAN x10^3 (test code = 3052975645) 0.06 10*3/uL 0.00-0.06 LYMPH x10^3 (test code = 731-0) 1.39 10*3/uL 1.32-3.29 MONO x10^3 (test code = 742-7) 0.46 10*3/uL 0.33-0.92 EOS x10^3 (test code = 711-2) 0.09 10*3/uL 0.03-0.39 BASO x10^3 (test code = 704-7) <0.03 0.01-0.07 Lab Interpretation (test code = 00853-8) Abnormal [facility]OVID[facility] (ID NOW RAPID TESTING)2020-09-06 12:56:26* Test Item Value Reference Range Interpretation Comme nts SARS-CoV-2 Rapid ID NOW (test code = 20099-6) Not Detected Not Detected ZOE (test code = ZOE) ID NOW COVID-19 As say is an isothermal nucleic acid amplification test intended for the qualitative detection of nucleic acid from SARS-CoV-2 viral RNA in nasopharyngeal (TABLET COATER) specimens. It is used under Emergency Use [...] clinically indicated. Lab Interpretation (test code = 46740-4) Normal [facility] ONLY - FERN [id number] 12:49:07* Test Item Value Reference Range Interpretation Comme nts Fern Test (test code = 6546047241) Negative [facility]bergPO[facility] URINALYSIS W SPECIFIC [id number] 19:09:00* Test Item Value Reference Range Interpretation [...] POCT U APPEAR (test code = 3267) [facility]bergSARS-COV-2 [id number] 06:22:00* Test Item Value Reference Range Interpretation Comme nts CoV-2 IgG (test code = 96288-8) Positive Negative A A positive resul t suggests exposure to SARS-CoV-2 but does not necessarily indicate immunity. Results should be used in conjunction with symptoms, other test results and clinical impression. This test should not be used for screening of donated blood. ZOE (test code = ZOE) This test has been approved by FDA for emergency use. Lab Interpretation (test code = 70737-5) Abnormal [facility] WITH [id number] 04:07:00* Test Item Value Reference Range Interpretation [...] 33.1 g/dL 31.6-35.1 RDW-SD (test code = 85899-6) 41.0 fL 39-49.9 RDW-CV (test code = 788-0) 13.1 % 12-15.5 PLT (test code = 777-3) See_Comment [Automated messa ge] The system which generated this result transmitted reference range: 166 - 358 10*3/?L. The reference range was not used to interpret this result as normal/abnormal. MPV (test code = 94565-4) 9.0 fL 9.5-12.9 L NRBC/100 WBC (test code = 1529842933) See_Comment [Automated me ssage] The system which generated this result transmitted reference range: 0.0 - 10.0 /100 WBCs. The reference range was not used to interpret this result as normal/abnormal. NRBC x10^3 (test code = 5199635326) <0.01 See_Comment [Automated messa ge] The system which generated this result transmitted reference range: 10*3/?L. The reference range was not used to interpret this result as normal/abnormal. GRAN MAT (NEUT) % (test code = 770-8) 75.3 % IMM GRAN % (test code = 0123243470) 0.50 % LYMPH % (test code = 736-9) 16.6 % MONO % (test code = 5905-5) 5.7 % EOS % (test code = 713-8) 1.4 % BASO % (test code = 706-2) 0.5 % GRAN MAT x10^3(ANC) (test code = 3357645189) 4.76 10*3/uL 1.88-7.09 IMM GRAN x10^3 (test code = 6177776695) 0.03 10*3/uL 0-0.06 LYMPH x10^3 (test code = 731-0) 1.05 10*3/uL 1.32-3.29 L MONO x10^3 (test code = 742-7) 0.36 10*3/uL 0.33-0.92 EOS x10^3 (test code = 711-2) 0.09 10*3/uL 0.03-0.39 BASO x10^3 (test code = 704-7) 0.03 10*3/uL 0.01-0.07 Lab Interpretation (test code = 32127-5) Abnormal [facility] URINALYSIS W SPECIFIC [id number] 19:44:00* Test Item Value Reference Range Interpretation Comme nts POCT U SP GRAV (test code = 3255) . 1.005-1.025 POCT PH U (test code = 3254) . 5-8 POCT U LEUK EST (test code = 3263) . Negative - N egative POCT U NIT (test code = 3262) . Negative - Negati ve POCT U PROT (test code = 2509) Trace Negative - Negat geneva POCT U [...] POCT U APPEAR (test code = 3267) [facility] URINALYSIS W SPECIFIC [id number] 22:18:00* Test Item Value Reference Range Interpretation [...] POCT U APPEAR (test code = 3267) [facility] URINALYSIS W SPECIFIC [id number] 19:20:00* Test Item Value Reference Range Interpretation [...] POCT U APPEAR (test code = 3267) [facility] URINALYSIS W SPECIFIC [id number] 19:20:00* Test Item Value Reference Range Interpretation [...] POCT U APPEAR (test code = 3267) [facility] URINALYSIS W SPECIFIC [id number] 19:20:00* Test Item Value Reference Range Interpretation [...] POCT U APPEAR (test code = 3267) [facility] URIN[facility] W SPECIFIC [id number] 14:41:00* Test Item Value Reference Range Interpretation [...] POCT U APPEAR (test code = 3267) [facility] KlebergGC & CHLAMYDIA AMPLIFIED [id number] 19:24:00* Test Item Value Reference Range Interpretation Comme nts C. trachomatis Nucleic Acid (test code = 27557-8) Negative Negative N. gonorrhoeae Nucleic Acid (test code = 71023-8) Negative Negative ZOE (test code = ZOE) [...] gonorrhoeae NAAT. Lab Interpretation (test code = 52652-8) Normal [facility] KlebergRUBELLA SCREEN ([place]) [id number] 16:34:00 * Test Item Value Reference Range Interpretation Comme nts Rubella screen IgG (test code = 7563807455) Positive Negative ZOE (test code = ZOE) Positive - Indicat es the patient was exposed to Rubella through infection or vaccination.Negative - Indicates the patient could be susceptible to Rubella infection.Equivocal - A second specimen should be sent. [facility] [id number] 16:34:00* Test Item Value Reference Range Interpretation Comme [facility] VZV IgG antibody (test code = 31665-8) Equivocal Negative ZOE (test code = ZOE) Positive - Indicat es the patient was exposed to VZV through infection or vaccination.Negative - Indicates the patient could be susceptible to VZV infection.Equivocal - A second specimen should be sent for testing. [facility] KlebergGALV ONLY - SYPHILIS [id number] 13:39:00* Test Item Value Reference Range Interpretation Comme nts Syphilis IgG/IgM (test code = 46976-1) Non-reactive Non-reactive ZOE (test code = ZOE) Non-reactive - No serologic evidence of T. pallidum infection. Cannot exclude incubating or early syphilis. Submit a second specimen in 2-4 weeks if syphilis is clinically suspected. Equivocal - Further testing to follow. Reactive - Further testing to follow. Lab Interpretation (test code = 36511-9) Normal [facility] KlebergHEPATITIS B SURFACE [id number] 06:17:00 * Test Item Value Reference Range Interpretation Comme nts HBsAg Semi-Quantitative (nickolas t code = 5195-3) Negative Negative [facility], BLOOD [id number] 05:05:42 * Test Item Value Reference Range Interpretation Comme nts ABO & RH (test code = 20) B POSITIVE Performed at [facility] B Laboratory Services - [facility] Blood [address] [place] [address]Nbuc Free: [phone] No. [id number] IAT (test code = 1185) Negative Performed at [facility] Laboratory Services - [facility] Blood [address] [place] [address] Free: [phone] No. [id number] [facility] KlebergHIV 1/2 AG-AB WITH [id number] 04:49:00* Test Item Value Reference Range Interpretation Comme nts HIV Semi-quantitative (test code = 34759-2) Negative Negative ZOE (test code = ZOE) Non-reactive for HIV-1 antigen and HIV-1/HIV-2 antibodies. ?No laboratory evidence of HIV infection. ?Repeat in 2-4 weeks if acute HIV infection is suspected. [facility]bergSARS-COV-2 [id number] 04:28:00* Test Item Value Reference Range Interpretation Comme [facility] CoV-2 IgG (test code = 10651-0) Negative Negative Negative result does not rule out acute SARS-CoV-2 infection. Clinical correlation as well as molecular diagnostic test are recommended to rule out acute infection if clinically indicated. ZOE (test code = ZOE) This test has been approved by FDA for emergency use. Lab Interpretation (test code = 61498-5) Normal [facility] KlebergGlucose 1 Hour Post [id number] 03:59:00* Test Item Value Reference Range Interpretation Comme nts GLUC 1 HR (test code = 1165325205) 96 mg/dL 120-170 L Lab Interpretation (test cod e = 25553-9) Abnormal [facility]berg[facility] WITH [id number] 03:13:00* Test Item Value Reference Range Interpretation [...] 34.0 g/dL 31.6-35.1 RDW-SD (test code = 82483-7) 39.9 fL 39-49.9 RDW-CV (test code = 788-0) 11.9 % 12-15.5 L PLT (test code = 777-3) See_Comment [Automated classmarketsa ge] The system which generated this result transmitted reference range: 166 - 358 10*3/?L. The reference range was not used to interpret this result as normal/abnormal. MPV (test code = 41930-6) 9.1 fL 9.5-12.9 L NRBC/100 WBC (test code = 5939716243) See_Comment [Automated Youboox ssage] The system which generated this result transmitted reference range: 0.0 - 10.0 /100 WBCs. The reference range was not used to interpret this result as normal/abnormal. NRBC x10^3 (test code = 6903868110) <0.01 See_Comment [Automated classmarketsa ge] The system which generated this result transmitted reference range: 10*3/?L. The reference range was not used to interpret this result as normal/abnormal. GRAN MAT (NEUT) % (test code = 770-8) 69.1 % IMM GRAN % (test code = 9995615591) 0.40 % LYMPH % (test code = 736-9) 22.6 % MONO % (test code = 5905-5) 5.3 % EOS % (test code = 713-8) 2.1 % BASO % (test code = 706-2) 0.5 % GRAN MAT x10^3(ANC) (test code = 0409868070) 3.94 10*3/uL 1.88-7.09 IMM GRAN x10^3 (test code = 4773450844) <0.03 0-0.06 LYMPH x10^3 (test code = 731-0) 1.29 10*3/uL 1.32-3.29 L MONO x10^3 (test code = 742-7) 0.30 10*3/uL 0.33-0.92 L EOS x10^3 (test code = 711-2) 0.12 10*3/uL 0.03-0.39 BASO x10^3 (test code = 704-7) 0.03 10*3/uL 0.01-0.07 Lab Interpretation (test code = 01517-0) Abnormal [facility] [id number] 20:00:00* Test Item Value Reference Range Interpretation Comme nts POCT PREG (test code = 1605) Positive On board controls acceptable with C Line (test code = 3574) Yes POCT PREG LOT # (test code = 3575) POCT PREG TEST DATE ( test code = 3576) [facility] URINALYSIS W/O SPECIFIC [id number] 20:00:00* Test Item Value Reference Range Interpretation [...] = 3257) Neg Negative - Negati ve [facility] [id number] 20:00:00* Test Item Value Reference Range Interpretation Comme nts POCT PREG (test code = 1605) Positive On board controls acceptable with C Line (test code = 3574) Yes POCT PREG LOT # (test code = 3575) POCT PREG TEST DATE ( test code = 3576) [facility] URINALYSIS W/O SPECIFIC [id number] 20:00:00* Test Item Value Reference Range Interpretation [...] = 3257) Neg Negative - Negati ve [facility] [id number] 20:00:00* Test Item Value Reference Range Interpretation Comme nts POCT PREG (test code = 1605) Positive On board controls acceptable with C Line (test code = 3574) Yes POCT PREG LOT # (test code = 3575) POCT PREG TEST DATE ( test code = 357) [facility] URINALYSIS W/O SPECIFIC [id number] 20:00:00* Test Item Value Reference Range Interpretation [...] = 3257) Neg Negative - Negati ve [facility] [id number] 20:00:00* Test Item Value Reference Range Interpretation Comme nts POCT PREG (test code = 1605) Positive On board controls acceptable with C Line (test code = 3574) Yes POCT PREG LOT # (test code = 3575) POCT PREG TEST DATE ( test code = 3576) [facility] URINALYSIS W/O SPECIFIC [id number] 20:00:00* Test Item Value Reference Range Interpretation [...] = 3257) Neg Negative - Negati ve [facility]bergPOCT [id number] 20:00:00* Test Item Value Reference Range Interpretation Comme nts POCT PREG (test code = 1605) Positive On board controls acceptable with C Line (test code = 3574) Yes POCT PREG LOT # (test code = 3575) POCT PREG TEST DATE ( test code = 3576) [facility]bergPO[facility] URINAL[facility] W/O SPECIFIC [id number] 20:00:00* Test Item Value Reference Range Interpretation [...] = 3257) Neg Negative - Negati ve [facility]U] XRAY PELVIS MIN 3 S [id number] 11:51:00Images acquired, not reported on this accession number.[facility]
--- NOTE | 2023-09-04 08:11 | RAD REPORT ---
EXAM DESCRIPTION: RAD - Knee Right 3 View - 09/04/2023 8:04 am CLINICAL HISTORY: PAIN COMPARISON: No comparisons FINDINGS: No acute fracture or dislocation seen. Moderate suprapatellar joint effusion.
[2023-09-04 08:18] LABS: Specific Gravity 1.025 (1.005-1.030)
--- NOTE | 2023-09-04 08:19 | EDPHYS ---
Physician Documentation [facility] Name: Lisbet Vela Age: 38 yrs Sex: Female : 1985 Arrival Date: 09/04/2023 Time: 06:54 Bed 15 Private MD: GERMAINE Physician Donell Hairston HPI: 09/03 07:43 This 38 yrs old Female presents to ER via Ambulatory with complaints of Knee ángela Pain, Leg Swelling. 07:43 The patient presents with decreased range of motion, pain, swelling, tenderness. The ángela complaints affect the right knee. Context: The problem was sustained at an unknown site, resulted from a repetitive motion, an unknown cause. Onset: The symptoms/episode began/occurred 5 day(s) ago. Modifying factors: The symptoms are alleviated by remaining still, the symptoms are aggravated by weight bearing, bending knee. Associated signs and symptoms: The patient has no apparent associated signs or symptoms. Treatment prior to arrival includes: no previous treatment. Severity of symptoms: At their worst the symptoms were moderate, in the emergency department the symptoms are unchanged. The patient has not experienced similar symptoms in the past. 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 - Social history:: Smoking status: Patient denies any tobacco usage or history of. Patient/guardian denies using alcohol, street drugs. - Family history:: not pertinent. ROS: 07:43 Constitutional: Negative for fever, chills, and weight loss, Eyes: Negative for injury, ángela pain, redness, and discharge, ENT: Negative for injury, pain, and discharge, Neck: Negative for injury, pain, and swelling, Cardiovascular: Negative for chest pain, palpitations, and edema, Respiratory: Negative for shortness of breath, cough, wheezing, and pleuritic chest pain, Abdomen/GI: Negative for abdominal pain, nausea, vomiting, diarrhea, and constipation, Back: Negative for injury and pain, : Negative for injury, bleeding, discharge, and swelling, Skin: Negative for injury, rash, and discoloration, Neuro: Negative for headache, weakness, numbness, tingling, and seizure, Psych: Negative for depression, anxiety, suicide ideation, homicidal ideation, and hallucinations, Allergy/Immunology: Negative for hives, rash, and allergies, Endocrine: Negative for neck swelling, polydipsia, polyuria, polyphagia, and marked weight changes, Hematologic/Lymphatic: Negative for swollen nodes, abnormal bleeding, and unusual bruising, 07:43 MS/extremity: Positive for decreased range of motion, pain, swelling, of the right knee, Exam: 07:43 Constitutional: This is a well developed, well nourished patient who is awake, alert, ángela and in no acute distress. Head/Face: Normocephalic, atraumatic. Eyes: Pupils equal round and reactive to light, extra-ocular motions intact. Lids and lashes normal. Conjunctiva and sclera are non-icteric and not injected. Cornea within normal limits. Periorbital areas with no swelling, redness, or edema. ENT: Nares patent. No nasal discharge, no septal abnormalities noted. Tympanic membranes are normal and external auditory canals are clear. Oropharynx with no redness, swelling, or masses, exudates, or evidence of obstruction, uvula midline. Mucous membranes moist. Neck: Trachea midline, no thyromegaly or masses palpated, and no cervical lymphadenopathy. Supple, full range of motion without nuchal rigidity, or vertebral point tenderness. No Meningismus. Chest/axilla: Normal chest wall appearance and motion. Nontender with no deformity. No lesions are appreciated. Cardiovascular: Regular rate and rhythm with a normal S1 and S2. No gallops, murmurs, or rubs. Normal PMI, no JVD. No pulse deficits. Respiratory: Lungs have equal breath sounds bilaterally, clear to auscultation and percussion. No rales, rhonchi or wheezes noted. No increased work of breathing, no retractions or nasal flaring. Abdomen/GI: Soft, non-tender, with normal bowel sounds. No distension or tympany. No guarding or rebound. No evidence of tenderness throughout. Back: No spinal tenderness. No costovertebral tenderness. Full range of motion. Skin: Warm, dry with normal turgor. Normal color with no rashes, no lesions, and no evidence of cellulitis. Neuro: Awake and alert, GCS 15, oriented to person, place, time, and situation. Cranial nerves II-XII grossly intact. Motor strength 5/5 in all extremities. Sensory grossly intact. Cerebellar exam normal. Normal gait. Psych: Awake, alert, with orientation to person, place and time. Behavior, mood, and affect are within normal limits. 07:43 Musculoskeletal/extremity: Extremities: grossly normal except: noted in the right knee: decreased ROM, pain, ROM: full active range of motion, full passive range of motion, limited passive range of motion due to pain, in the right knee, Circulation is intact in all extremities. Compartment Syndrome exam of affected extremity: is normal. Weight bearing: able to fully bear weight, DVT Exam: pain, swelling, tenderness, increased warmth, Vital Signs: 07:17 BP 121 / 89; Pulse 70; Resp 16; Temp 97.9(O); Pulse Ox 100% on R/A; Weight 107.5 kg; hb Height 5 ft. 2 in. ; Pain 9/10; 09:10 BP 118 / 69; Pulse 63; Resp 16 S; Pulse Ox 100% on R/A; kc6 07:17 Body Mass Index 43.35 (107.50 kg, 157.48 cm) hb 07:17 Pain Scale: Adult hb MDM: 07:16 Patient medically screened. ángela 07:48 Differential diagnosis: closed fracture, contusion, tendonitis. Data reviewed: vital ángela signs, nurses notes, lab test result(s), urinalysis, radiologic studies, plain films. Consideration of Admission/Observation Escalation of care including admission/observation considered. I considered the following discharge prescriptions or medication management in the emergency department Medications were administered in the Emergency Department. See MAR. Independent interpretation of the following test(s) in the Emergency Department X-Ray: My interpretation is no fx. Test considered but Not performed: Labs: no cbc, no comp met. Historians other than the Patient: pt well informed. Care significantly affected by the following chronic conditions: Obesity, bipolar. 09/03 07:43 Order name: Urinalysis w/ reflexes; Complete Time: 09:05 ángela 09/03 07:43 Order name: PREGU; Complete Time: 09:05 ángela 09/03 07:21 Order name: Knee Right 3 View XRAY; Complete Time: 09:05 [facility] 09/03 07:41 Order name: US Extremity Venous Unilateral Ltd; Complete Time: 09:05 [facility] 09/03 07:42 Order name: Knee Immobilizer; Complete Time: 09:06 [facility] 09/03 07:42 Order name: Ice pack; Complete Time: 08:00 [facility] Administered Medications: 08:07 Drug: Ibuprofen PO 800 mg PO once Route: PO; kc6 09:10 Follow up: Response: No adverse reaction; Pain is decreased 6 09:06 Drug: predniSONE PO 40 mg PO once Route: PO; kc6 09:10 Follow up: Response: No adverse reaction kc6 Disposition Summary: 09/04/23 08:18 Discharge Ordered Notes: Location: Home [facility] Problem: new ángela Symptoms: have improved ángela Condition: Stable ángela Diagnosis - Pain in right knee ángela - Effusion, right knee - SUPRAPATELLA EFFUSION ángela Followup: ángela - With: Private Physician - When: 2 - 3 days - Reason: Recheck today's complaints, Continuance of care, Re-evaluation by your physician Followup: ángela - With: Frank Ortiz MD - When: 2 - 3 days - Reason: Recheck today's complaints, Continuance of care, Re-evaluation by your physician Discharge Instructions: - Discharge Summary Sheet ángela - Joint Pain [facility] - How to Use a Knee Brace ángela - Knee Effusion ángela - Knee Effusion, [id number] [facility] - Arthritis, [id number] [facility] Forms: - Medication Reconciliation Form [facility] - Thank You Letter [facility] - Antibiotic Education ángela - Prescription Opioid Use [facility] - Patient Portal Instructions [facility] - Leadership Thank You Letter [facility] Prescriptions: - Diclofenac Sodium 75 mg Oral tablet, delayed release (enteric coated) - take 1 tablet ORAL route 2 times per day; 20 tablet; Refills: 0, Product [facility] Selection Permitted - Tramadol 50 mg Oral tablet - take 1 tablet ORAL route every 8 hours as needed; 20 tablet; Refills: 0, [facility] Product Selection Permitted - Medrol (Devyn) 4 mg Oral Tablets, Dose Pack - take 1 tablet ORAL route as directed - follow package instructions; 1 packet; [facility] Refills: 0, Product Selection Permitted Signatures: Dispatcher [employer] EDMS Yovanny, Donell, MD MD ángela Cho, Anila, RN RN hb Saavedra, Pam, RN RN kc6
--- NOTE | 2023-09-04 08:19 | ER ---
Nurse's Notes [facility] Name: Lisbet Vela Age: 38 yrs Sex: Female : 1985 Arrival Date: 09/04/2023 Time: 06:54 Bed 15 Private MD: Diagnosis: Pain in right knee;Effusion, right knee-SUPRAPATELLA EFFUSION Presentation: 09/03 07:17 Chief complaint: Right knee pain with numbness on lateral knee x 5 days. Denies injury. hb Coronavirus screen: At this time, the client does not indicate any symptoms associated with coronavirus-19. Ebola Screen: No symptoms or risks identified at this time. Initial Sepsis Screen: Does the patient meet any 2 criteria? No. Patient's initial sepsis screen is negative. Does the patient have a suspected source of infection? No. Patient's initial sepsis screen is negative. Risk Assessment: Do you want to hurt yourself or someone else? Patient reports no desire to harm self or others. Onset of symptoms was August 30, 2023. 07:17 Method Of Arrival: Ambulatory 07:17 Acuity: ARGENIS 4 hb Triage Assessment: 07:18 General: Appears in no apparent distress. uncomfortable, Behavior is calm, cooperative. hb Pain: Pain currently is 9 out of 10 on a pain scale. Neuro: Level of Consciousness is awake, alert, obeys commands, Oriented to person, place, time, situation. Cardiovascular: Patient's skin is warm and dry. Respiratory: Respiratory effort is even, unlabored, Respiratory pattern is regular, symmetrical. Musculoskeletal: Reports right knee pain with partial numbness to lateral knee. 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 - Social history:: Smoking status: Patient denies any tobacco usage or history of. Patient/guardian denies using alcohol, street drugs. - Family history:: not pertinent. Screenin:21 [facility] ED Fall Risk Assessment (Adult) History of falling in the last 3 months, kc6 including since admission No falls in past 3 months (0 pts) Confusion or Disorientation No (0 pts) Intoxicated or Sedated No (0 pts) Impaired Gait No (0 pts) Mobility Assist Device Used No (0 pt) Altered Elimination No (0 pt) Score/Fall Risk Level 0 - 2 = Low Risk. Abuse screen: Denies threats or abuse. Denies injuries from another. Nutritional screening: No deficits noted. Tuberculosis screening: No symptoms or risk factors identified. Assessment: 07:21 General: Appears in no apparent distress. comfortable, well groomed, well developed, kc6 Behavior is calm, cooperative, appropriate for age. Pain: Complains of pain in right knee and left knee. Neuro: Level of Consciousness is awake, alert, obeys commands, Oriented to person, place, time, situation, Appropriate for age. Cardiovascular: Capillary refill < 3 seconds. Respiratory: Airway is patent Trachea midline Respiratory effort is even, unlabored, Respiratory pattern is regular, symmetrical. GI: No signs and/or symptoms were reported involving the gastrointestinal system. : No signs and/or symptoms were reported regarding the genitourinary system. EENT: No signs and/or symptoms were reported regarding the EENT system. Derm: No signs and/or symptoms reported regarding the dermatologic system. Skin is intact, is healthy with good turgor, Skin is pink, warm \T\ dry. Musculoskeletal: Circulation, motion, and sensation intact. Capillary refill < 3 seconds, Range of motion: intact in all extremities, Swelling present in right knee. 08:21 Reassessment: Patient appears in no apparent distress at this time. No changes from kc6 previously documented assessment. Patient and/or family updated on plan of care and expected duration. Pain level reassessed. Patient is alert, oriented x 3, equal unlabored respirations, skin warm/dry/pink. Vital Signs: 07:17 BP 121 / 89; Pulse 70; Resp 16; Temp 97.9(O); Pulse Ox 100% on R/A; Weight 107.5 kg; hb Height 5 ft. 2 in. ; Pain 9/10; 09:10 BP 118 / 69; Pulse 63; Resp 16 S; Pulse Ox 100% on R/A; kc6 07:17 Body Mass Index 43.35 (107.50 kg, 157.48 cm) hb 07:17 Pain Scale: Adult hb ED Course: 06:59 Patient arrived in ED. gm2 07:10 Pam Saavedra, RN is Primary Nurse. kc6 07:16 Donell Hairston MD is Attending Physician. ángela 07:18 Triage completed. hb 07:18 Arm band placed on. hb 07:21 Patient maintains SpO2 saturation greater than 95% on room air. kc6 07:21 Patient has correct armband on for positive identification. Bed in low position. Call kc6 light in reach. Side rails up X 1. Client placed on continuous cardiac and pulse oximetry monitoring. NIBP monitoring applied. 07:21 Door closed. Warm blanket given. hb 08:06 Knee Right 3 View XRAY In Process Unspecified. EDMS 08:11 US Extremity Venous Unilateral Ltd In Process Unspecified. EDMS 08:18 Frank Ortiz MD is Referral Physician. ángela 09:10 No provider procedures requiring assistance completed. Patient did not have IV access kc6 during this emergency room visit. Administered Medications: 08:07 Drug: Ibuprofen PO 800 mg PO once Route: PO; kc6 09:10 Follow up: Response: No adverse reaction; Pain is decreased kc6 09:06 Drug: predniSONE PO 40 mg PO once Route: PO; kc6 09:10 Follow up: Response: No adverse reaction kc6 Medication: 09:11 VIS not applicable for this client. kc6 Outcome: 08:18 Discharge ordered by . ángela 09:10 Discharged to home ambulatory, kc6 09:10 Condition: good 09:10 Discharge instructions given to patient, Instructed on discharge instructions, follow up and referral plans. medication usage, Demonstrated understanding of instructions, follow-up care, medications, Prescriptions given X 3, 09:11 Patient left the ED. kc6 Signatures: Dispatcher [employer] EDMS Donell Hairston MD MD cha Baxter, Heather, RN RN Pam Saavedra, GONZALES RN Sarah Chandler gm2
[2023-09-04 08:23] LABS: Specific Gravity 1.026 (1.005-1.030); Urine Bacteria <20 /HPF (<20); Urine Bilirubin NEGATIVE (Negative); Urine Blood Negative (Negative); Urine Clarity Clear (Clear); Urine Color Yellow (Yellow); Urine Glucose NEGATIVE (Negative); Urine Mucus Slight /HPF (None Seen); Urine Protein TRACE (Negative); Urine RBC <5 /HPF (None Seen); Urine Urobilinogen Normal (Normal); Urine pH 5.5 (5.0-7.0)
--- NOTE | 2023-09-04 08:24 | RAD REPORT ---
EXAM DESCRIPTION: US - Extremity Venous Uni Ltd - 09/04/2023 8:09 am CLINICAL HISTORY: PAIN Leg swelling and edema. COMPARISON: No comparisons FINDINGS: Right lower extremity venous system was interrogated with Doppler technique. Normal flow, compressibility and augmentation was noted. There is no DVT present. IMPRESSION: No evidence of right lower extremity deep venous thrombosis.
[2023-09-04 09:37] VITALS: BP 118/69; TEMP 97.9; O2SAT 100
== END ==
LOC: ER 06:54
DX: M25.461 Effusion, right knee (principal); Z88.3 Allergy status to other anti-infective agents; Z88.5 Allergy status to narcotic agent
CPT/HCPCS: 81001; 81025; 73562; 93971; 99284; J7512